=== PATIENT | male | born 1940 | race Caucasian/White ===

== ENCOUNTER 2017-11-19 00:26 | Inpatient (IN) | payer MEDICARE, SELFPAY ==
[2017-11-19] VITALS (26 sets, daily range): BP systolic 99–140; BP diastolic 57–75; PULSE 81–110; RESP 18–27; TEMP 36.4–37.4; O2SAT 91–98; BMI 20.9; BMI 21.0
--- NOTE | 2017-11-19 00:47 | HP.PCM_ITS ---
Problem List (1) History of prostate cancer Status: Chronic (2) COPD (chronic obstructive pulmonary disease) Status: Acute Qualifiers: COPD type: COPD with acute lower respiratory infection Qualified Code(s): J44.0 - Chronic obstructive pulmonary disease with acute lower respiratory infection (3) CAP (community acquired pneumonia) Status: Acute Qualifiers: Laterality: unspecified laterality Qualified Code(s): J18.9 - Pneumonia, unspecified organism History of Present Illness Date of Admission: 11/19/17 Chief Complaint: shortness of breath The patient is a 76 year old male patient with a significant past medical history of COPD presents to the [place] [facility] by squad with acute shortness of breath. Although he has moderate/severe COPD he is not on home oxygen at this time. Initially he complained of left flank pain and was found by EMS to have an SPO2 of 88%, heart rate of 140 and respiratory rate of 36. Chest xray revealed bilateral infiltrates. He was treated with 125mg solumedrol and given Rocephin and Azithromycin and then BIPAP treatment. His condition has improved and now is breathing 20-24 times per minute and heart rate is 100-110 with a normal blood pressure. He is admitted to the ICU. Code status is full and will need to be discussed as the patient also has prostate cancer and I am informed surgery was not done due to his lung disease. He will be managed in the ICU for now. Past Medical History Past Medical History (Chronic Problems): Chronic Problems History of prostate cancer (Chronic) Lives: Spouse/ Significant Other - *Family History Maternal History Items: No pertinent history VTE Information - Inpt Only VTE Present on Admission: No VTE Mechan Device Prophylaxis: None VTE Pharm Prophylaxis ordered?: Yes Patient Problems: Active and Suspected Problems COPD (chronic obstructive pulmonary disease) (Acute) CAP (community acquired pneumonia) (Acute) - Physical Exam General: Alert, Oriented x3, Cooperative HEENT: Atraumatic, Normocephalic Neck: Supple Lungs: No rhonchi, No wheeze, No rales, Diminished, Tachypneic Cardiovascular: Normal S1, Normal S2, No murmurs, Tachycardic Abdomen: Bowel Sounds Present, Soft, Non Tender Extremities: No edema, Capillary Refill Less than 3 Seconds Skin: No rashes, - - thin area in saccrum but skin not completely broken down Musculoskeletal: No Tenderness to Palpation of Joints or Extremities Neurological: Neuro grossly intact Psych/Mental Status: Normal Affect, Appropriate Assessment/Plan All Active Problems COPD (chronic obstructive pulmonary disease) (Acute) CAP (community acquired pneumonia) (Acute) Chronic conditions - COPD - Prostate cancer Plan - admit to ICU - Consult DR Nix - solumedrol 40mg IV q8hrs, rocephine 1gram IV q day and azithromycin 500mg IV q day - continue BIPAP overnight - send sputum culture - CBC, BMP in am - continue routine home medications for stable medical conditions. - LMWH for DVT prophylaxis Code Visit Inpatient E&M: 35501 Init Hosp L3
[2017-11-19] MEDS: Ceftriaxone 1 GM/50 ML BAG IV ×2 (02:08→13:14)
[2017-11-19] MEDS: 0.9% NaCl IVPB Med Flush (250 mL) 15 ML IV (02:13)
[2017-11-19] MEDS: 0.9% NaCl Peripheral Flush Adult/Peds IV (02:13)
[2017-11-19] MEDS: CHLORHEXIDINE GLUC 2% CLOTH 1 EACH TOWELETTE TOPICAL (02:56)
[2017-11-19] MEDS: Ipratropium/Albuterol Sulfate 3 ML AMPUL.NEB INHALATION ×4 (03:02→18:34)
[2017-11-19 04:21] LABS: Hematocrit 30.2 % (40-54); Hemoglobin 9.7 g/dl (13.0-16.5); Mean Corp Hgb Conc 32.1 g/gl (32-36); Mean Corpuscular Hgb 27.8 pg (27.0-32.0); Mean Corpuscular Volume 86.5 fL (80-94); Mean Platelet Vol. 9.6 fl (6.2-12.0); Platelet Count 212 K/mm3 (150-450); RBC Distribution Width CV 14.2 % (11.6-14.6); RBC Distribution Width SD 43.3 fl (35.1-43.9); Red Blood Count 3.49 M/mm3 (4.6-6.2); White Blood Count 13.9 K/mm3 (4.4-11.0)
[2017-11-19 04:28] LABS: M R Staph aureus DNA By PCR Negative (Negative); Probe Check PASS; Specimen Processing Control PASS
[2017-11-19 04:28] LABS: Scan Indicated on CBC? Y/N NO
[2017-11-19 04:29] LABS: Anion Gap 9 (5-15); BUN 15 mg/dL (7-18); Chloride 105 mmol/L (98-107); Creatinine, Serum 1.07 mg/dL (0.70-1.30); EST Glomerular Filtration Rate 72 mL/min (>60); Est Glom Filt Rate - Afr Amer 87 mL/min (>60); Estimated Creatinine Clearance 58.43 ml/min; Glucose 249 mg/dL (74-106); Potassium 3.7 mmol/L (3.5-5.1); Sodium Level 138 mmol/L (136-145)
--- NOTE | 2017-11-19 04:49 | RAD_ITS ---
STUDY: X-RAY CHEST REASON FOR EXAM: Male, 76 years old. Shortness of breath TECHNIQUE: Single AP portable view of the chest. COMPARISON: None. FINDINGS: There is an ill-defined opacity in the left lung apex measures approximately 2 cm may represent a lung mass. There is a moderate size left pleural effusion. There is partial atelectasis in the right lung lower lobe and left lower lobe. Normal size heart. Normal mediastinum and gay. Normal visualized pulmonary arteries. Normal visualized aortic arch and descending thoracic aorta. Normal visualized thoracic spine. Normal visualized ribs, clavicles, and shoulders. There is no demonstrated abnormality of the visualized soft tissue structures of the upper abdomen. RAD/Chest 1 View (Portable) IMPRESSION: Possible left lung upper lobe mass measures 2 cm. Moderate-sized left pleural effusion. Electronically Signed: Ernie Torres MD at 9:01 EDT Tel , Service support ,
[2017-11-19 05:06] LABS: BNP,B-Type NATRIURETIC PEPTIDE 242.7 pg/mL (0-100)
--- NOTE | 2017-11-19 06:54 | PN_ITS ---
Patient Problems: Active and Suspected Problems COPD (chronic obstructive pulmonary disease) (Acute) CAP (community acquired pneumonia) (Acute) Pleural effusion (Acute) Subjective: 76-year-old male with past medical history of prostate cancer, follows up with oncology in the cancer center, hypertension, COPD not on oxygen admitted this morning with acute hypoxic respiratory failure. Patient was seen and examined. No new complaints. Feels much better. Patient initially was on CPAP on transferred to the ICU. Was put on nasal cannula oxygen on arrival to the ICU. Patient improved gradually over the course of the night and is off oxygen. Vitals/I&O's: Vital Signs Temp Pulse Resp BP Pulse Ox 97.5 F L 81 22 H 113/58 L 94 11/19/17 06:00 11/19/17 06:00 11/19/17 06:00 11/19/17 06:00 11/19/17 06:00 Oxygen Flow Rate (L/min) 2 Oxygen Delivery Method Room Air Weight: 68.2 kg Body Mass Index (BMI) 20.9 Intake and Output for Last 24 Hours 11/17/17 11/18/17 11/19/17 23:59 23:59 23:59 Intake Total 688 / 688 Output Total Balance 663 / 663 General: Alert, Oriented x3, Cooperative, No apparent distress, - - Not on oxygen, appears comfortable, not pale, no jaundice HEENT: Atraumatic, PERRLA, EOMI, Normocephalic Oral: Moist Mucosa Neck: Supple Lungs: Normal air movement, Diminished - Both lower lung zones especially in the left lower lobe, Rales - Over the left lower lung zone Cardiovascular: Regular rate, Regular Rhythm, Normal S1, Normal S2, No murmurs, Tachycardic Abdomen: Bowel Sounds Present, Soft, Non Tender, Non-Distended, No Hepato- splenomegaly Extremities: No edema, Capillary Refill Less than 3 Seconds Skin: No rashes, No breakdown Musculoskeletal: No Tenderness to Palpation of Joints or Extremities Neurological: Cranial nerves II-XII grossly intact Psych/Mental Status: Normal Affect, Appropriate Laboratory Results 11/19/17 00:30: MRSA (PCR) Negative 11/19/17 04:00: WBC 13.9 H, RBC 3.49 L, Hgb 9.7 L, Hct 30.2 L, MCV 86.5, MCH 27.8, MCHC 32.1, RDW 14.2, RDW Differential 43.3, Plt Count 212, MPV 9.6 11/19/17 04:00: Sodium 138, Potassium 3.7, Chloride 105, Carbon Dioxide 24.0, Anion Gap 9, BUN 15, Creatinine 1.07, Estim Creat Clear Calc 58.43, Est GFR ( MDRD) Af Amer 87, Est GFR (MDRD) Non-Af 72, BUN/Creatinine Ratio 14.0, Glucose 249 H, Calcium 8.0 L 11/19/17 04:00: B-Natriuretic Peptide 242.7 H Current Medications Acetaminophen (Tylenol) 650 mg PO Q6H PRN PRN PRN Reason: Mild Pain (scale 0-3)/T>100.7 Albuterol/Ipratropium (Duoneb) 3 ml INHALATION Q4H.RT [facility] Last Admin: 11/19/17 03:02 Dose: 3 ml Chlorhexidine Gluconate () 1 each TOPICAL DAILY [facility] Last Admin: 11/19/17 02:56 Dose: 1 each Enoxaparin Sodium (Lovenox) 40 mg SC DAILY@1000 JOSHUA Sodium Chloride () 250 mls @ 15 mls/hr IV .[id number] PRN PRN Reason: SALINE FLUSH Last Admin: 11/19/17 02:13 Dose: 15 mls/hr Sodium Chloride () 1,000 mls @ 100 mls/hr IV .Q10H [facility] Last Admin: 11/19/17 02:08 Dose: Not Given Azithromycin 500 mg/ Dextrose 255 mls @ 250 mls/hr IV Q24 [facility] Stop: 11/21/17 11:02 Last Admin: 11/19/17 02:55 Dose: 250 mls/hr Ceftriaxone Sodium (Rocephin) 1 gm in 50 mls @ 100 mls/hr IV Q24 [facility] Last Admin: 11/19/17 02:08 Dose: 100 mls/hr Magnesium Hydroxide (Milk Of Magnesia) 30 ml PO DAILY PRN PRN PRN Reason: Constipation Nutritional Formula (Lactose Free) (Ensure Enlive) 120 ml PO 4X/DAY [facility] Ondansetron HCl (Zofran) 4 mg IV Q8H PRN PRN PRN Reason: NAUSEA Sodium Chloride () 5 - 30 ml IV UD PRN PRN Reason: SALINE FLUSH Last Admin: 11/19/17 02:13 Dose: 20 ml Medical Necessity - Tobacco Use Smoking Status: Former smoker Tobacco Use: Cigarettes Assessment/Plan All Active Problems COPD (chronic obstructive pulmonary disease) (Acute) CAP (community acquired pneumonia) (Acute) Pleural effusion (Acute) 76-year-old with past medical history of COPD, not on oxygen, prostate cancer, following up with oncology, hypertension comes seen with shortness of breath ongoing for 1 day. 1. Acute hypoxic respiratory failure, resolved, patient was on CPAP on transfer from [facility], not on oxygen this morning Plan: Continue off oxygen, keep SPO2 more than 94%, ambulatory pulse oximetry prior to discharge. 2. Community-acquired pneumonia, bilateral lower lobe, with left pleural effusion, sputum cultures and respiratory panel is pending, on IV ceftriaxone and azithromycin(day 2), will add urine streptococcal and Legionella antigen, continue to monitor vitals closely. 3. Left pleural effusion, unclear etiology, splitter machine planning on pleural tap, will follow-up on results, records from [facility] pending 4. Sinus tachycardia likely secondary to beta-abhi withdrawal, patient is on beta-abhi and amlodipine at home, will resume 5. Hypertension, controlled, will resume home medications 6. COPD, not on home oxygen, on Spiriva and breathing treatments, will continue same 7. Prostate cancer following with oncology in the metastatic cancer center 8. Deficiency anemia, on p.o. iron 9. DVT prophylaxis - Lovenox SC Code Visit Procedures: Other Procedure - See Report - non-billable round - patient admitted after midnight
--- NOTE | 2017-11-19 06:58 | CON.PCM_ITS ---
Problem List (1) Pleural effusion Status: Acute (2) History of prostate cancer Status: Chronic (3) COPD (chronic obstructive pulmonary disease) Status: Acute Qualifiers: COPD type: COPD with acute lower respiratory infection Qualified Code(s): J44.0 - Chronic obstructive pulmonary disease with acute lower respiratory infection (4) CAP (community acquired pneumonia) Status: Acute Qualifiers: Laterality: unspecified laterality Qualified Code(s): J18.9 - Pneumonia, unspecified organism Reason for Consult Date of Consultation: 11/19/17 Reason for Consultation: Acute hypoxic respiratory insufficiency History of Present Illness: The patient is a 76 year old M, with past medical history listed below, who originally presented to [place] [facility] secondary to acute shortness of breath. Patient reportedly was noted to have left flank pain and was found by EMS with a saturation of 88%, heart rate of 140 bpm and respiratory rate of 36. On presentation to the emergency room, patient was noted to have bilateral infiltrates on outside imaging. Patient was given Solu-Medrol, Rocephin and azithromycin. Patient was initiated on BiPAP therapy and then transported to [facility] intensive care for further monitoring. Overnight, patient has been taken off of BiPAP therapy and feels back to his baseline from a breathing standpoint. Patient still can have significant dyspnea with minimal exertion, but states that at rest he feels relatively comfortable. Patient denies any productive cough at this time. Patient is unaware of any fevers. Patient reports that he has been admitted to [facility] was similar type of presentation. Patient has noted some increased shortness of breath and lower extremity edema over the last 3-4 days. Patient does not state that he called his PCP. Patient has been placed on aerosol therapy secondary to reported COPD. Patient states that he has never had pulmonary function tests and is not aware of the severity of his disease. Patient does report a 20+ pack year smoking history, but quit some time ago. Patient does report a recent denial of surgery for his prostate cancer secondary to his lung disease. Patient does report intermittent lower extremity swelling at baseline, but does not believe this is significantly worse compared to previous. Patient does report some urinary hesitancy, but does not report any dysuria. Review of systems otherwise negative ?10 systems. Past Medical History Past Medical History (Chronic Problems): Chronic Problems History of prostate cancer (Chronic) Allergies JOSESITO Inhibitors Adverse Reaction (Verified 11/19/17 06:18) Unknown fluticasone [From Advair Diskus] Adverse Reaction (Verified 11/19/17 06:18) Unknown lisinopril Adverse Reaction (Verified 11/19/17 06:18) Unknown salmeterol [From Advair Diskus] Adverse Reaction (Verified 11/19/17 06:18) Unknown Home Medications: Ambulatory Orders Medication Instructions Recorded Albuterol Aerosols [Ventolin 2.5 mg INHALATION Q6H PRN PRN 11/19/17 Aerosols] Amlodipine [Norvasc] 10 mg PO DAILY 18 Aspirin E.C. [Ecotrin] 81 mg PO DAILY@0800 18 Ferrous Sulfate 325 mg PO DAILY@0800 18 Metoprolol Tartrate [Lopressor 50 mg PO BID 11/19/17 (Beta Ilene)] Nebulizer Accessories 11/19/17 Nebulizer and Compressor 11/19/17 Omeprazole [Prilosec] 40 mg PO BREAKFAST 18 Terazosin HCl [Hytrin] 2 mg PO QHS 11/19/17 Tiotropium [place] [Spiriva 18 MCG] 1 puff INHALATION DAILY 11/19/17 Lives: Spouse/ Significant Other Smoking Status: Former smoker Tobacco Use: Cigarettes - *Family History Maternal History Items: No pertinent history Review of Systems Comment: See HPI Patient Problems: Active and Suspected Problems COPD (chronic obstructive pulmonary disease) (Acute) CAP (community acquired pneumonia) (Acute) Pleural effusion (Acute) Objective: Portable chest x-ray was personally reviewed. This does show a possible left upper lobe nodule and left pleural effusion. Mild atelectasis versus infiltrate noted at the right base. - Physical Exam General: Alert, Oriented x3, Cooperative, No apparent distress, - - Speaking in full sentences. Appears stated age. HEENT: Atraumatic, PERRLA, EOMI, Normocephalic, TM's Clear, - - No scleral icterus or injection noted. Oral: Moist Mucosa, No Gingival or Mucosal Lesions/ Ulcerations Neck: Supple, No JVD, No Nodes, Trachea Midline Lungs: No rhonchi, No rales, Diminished, Wheezes, - - Dullness to percussion at the left base Cardiovascular: Regular rate, Regular Rhythm, Normal S1, Normal S2, No murmurs, No rub noted, No Gallop Abdomen: Bowel Sounds Present, Soft, Non Tender, Non-Distended Extremities: No clubbing, No cyanosis, No edema, Capillary Refill Less than 3 Seconds Skin: No rashes, No breakdown, - - Thin skin of the coccyx noted. Musculoskeletal: No Tenderness to Palpation of Joints or Extremities Lymphatic: No Cervical, Supraclavicular, or Inguinal Adenopathy Neurological: Cranial nerves II-XII grossly intact, Neuro grossly intact, Motor Exam 5/5 strength throughout Psych/Mental Status: Alert and oriented to time, place, person, mood and affect Vital Signs Temp Pulse Resp BP Pulse Ox 36.4 C L 81 22 H 113/58 L 94 11/19/17 06:00 11/19/17 06:00 11/19/17 06:00 11/19/17 06:00 11/19/17 06:00 Oxygen Flow Rate (L/min) 2 Oxygen Delivery Method Room Air Weight: 68.2 kg Body Mass Index (BMI) 20.9 Intake and Output for Last 24 Hours 11/17/17 11/18/17 11/19/17 23:59 23:59 23:59 Intake Total 688 / 688 Output Total 25 / 25 Balance 663 / 663 Laboratory Tests Past 24 Hrs 11/19/17 11/19/17 11/19/17 00:30 04:00 04:00 WBC 13.9 H RBC 3.49 L Hgb 9.7 L Hct 30.2 L MCV 86.5 MCH 27.8 MCHC 32.1 RDW 14.2 RDW Differential 43.3 Plt Count 212 MPV 9.6 Sodium 138 Potassium 3.7 Chloride 105 Carbon Dioxide 24.0 Anion Gap 9 BUN 15 Creatinine 1.07 Estim Creat Clear Calc 58.43 Est GFR (MDRD) Af Amer 87 Est GFR (MDRD) Non-Af 72 BUN/Creatinine Ratio 14.0 Glucose 249 H Calcium 8.0 L B-Natriuretic Peptide MRSA (PCR) Negative 11/19/17 04:00 WBC RBC Hgb Hct MCV MCH MCHC RDW RDW Differential Plt Count MPV Sodium Potassium Chloride Carbon Dioxide Anion Gap BUN Creatinine Estim Creat Clear Calc Est GFR (MDRD) Af Amer Est GFR (MDRD) Non-Af BUN/Creatinine Ratio Glucose Calcium B-Natriuretic Peptide 242.7 H MRSA (PCR) Assessment/Plan Active and Suspected Problems COPD (chronic obstructive pulmonary disease) (Acute) CAP (community acquired pneumonia) (Acute) Pleural effusion (Acute) RECOMMENDATIONS: 1. Continue antibiotics and steroids for now 2. Arrange for thoracentesis 3. Increase activity as tolerated 4. CT scan after thoracentesis 5. Okay to leave the intensive care unit IMPRESSIONS: 1. Acute hypoxic respiratory insufficiency secondary to pleural effusion/ COPD Currently being treated as a COPD exacerbation, but does have a pleural effusion noted on chest x-ray. Clinical concern given patient's history of prostate cancer that this may be related to metastasis. Reasonable to continue with antibiotics and steroids for now, but would recommend obtaining a thoracentesis with laboratory workup for clarification of transudate versus exudate. Patient does have a possible left upper lobe nodule noted on chest x- ray. This may be malignant versus infectious. Would not recommend a CT scan until thoracentesis have been completed. Increase activity as tolerated. 2. Reported COPD Unknown severity at this time. Patient is on bronchodilator therapy at home per his report. Patient is not reporting any significant productive cough or change in sputum to indicate a COPD exacerbation. Likely reasonable to continue with bronchodilators. Possibly discontinue steroid therapy after 24- 48 hours. 3. Possible congestive heart failure Patient does report occasional lower extremity swelling. Patient does have a left pleural effusion. If thoracentesis is consistent with a transudate of process, evaluation with echocardiogram would be reasonable. Patient has received care at [facility] previously. Would likely benefit from obtaining old records for comparison. BNP is slightly elevated. 4. Prostate cancer/advanced age/iron deficiency/hypertension Complicates care, management, recovery and prognosis. Likely okay to continue with iron supplementation. Monitor for urinary retention.
[2017-11-19] MEDS: 0.9% Normal Saline 1,000 ML 100 ML IV ×2 (07:53→17:57)
--- NOTE | 2017-11-19 09:51 | CASEMGMT ---
See RN CM Assessment Link. DC PLAN: pt was independent. Family is supportive. No needs identified @ this time. Olga Lidia NEUMANNN RN ACM
[2017-11-19] MEDS: amLODIPine 10 MG Tablet PO (11:14)
[2017-11-19] MEDS: Ferrous Sulfate 325 MG Tablet PO (11:15)
[2017-11-19] MEDS: Metoprolol Tartrate 50 MG Tablet PO ×2 (11:15→21:12)
[2017-11-19] MEDS: Pantoprazole Sodium 40 MG Tablet PO (11:15)
[2017-11-19] MEDS: Aspirin E.C. 81 MG Tablet PO (11:15)
[2017-11-19] MEDS: Enoxaparin 40 MG/0.4 ML Syringe SC (11:19)
[2017-11-19] MEDS: Doxazosin 1 MG Tablet 2 MG PO (21:12)
[2017-11-19] MEDS: Sodium Chloride 0.65% 1 SPRAY SPRAY.BTL NASAL (22:14)
[2017-11-20] VITALS (15 sets, daily range): BP systolic 116–124; BP diastolic 64–68; PULSE 86–103; RESP 18–20; TEMP 37.1–37.2; O2SAT 85–96
[2017-11-20] MEDS: 0.9% Normal Saline 1,000 ML 100 ML IV (04:06)
[2017-11-20] MEDS: 0.9% NaCl Peripheral Flush Adult/Peds IV (04:06)
[2017-11-20 04:31] LABS: ALB/GLOB Ratio 0.5 RATIO (0.9-2.4); AST(SGOT) 9 U/L (15-37); Alanine Aminotransfer ALT/SGPT 14 U/L (16-61); Albumin, Serum 2.4 g/dL (3.2-5.0); Alkaline Phosphatase 61 U/L (45-117); Anion Gap 9 (5-15); BUN 16 mg/dL (7-18); BUN/Creat Ratio 16.8 RATIO (10-20); Calcium,Total 8.5 mg/dL (8.5-10.1); Chloride 108 mmol/L (98-107); Creatinine, Serum 0.95 mg/dL (0.70-1.30); EST Glomerular Filtration Rate 82 mL/min (>60); Est Glom Filt Rate - Afr Amer 99 mL/min (>60); Estimated Creatinine Clearance 65.81 ml/min; Globulin 4.5 g/dL (2.2-4.2); Glucose 97 mg/dL (74-106); Protein, Total 6.9 g/dL (6.4-8.2); Sodium Level 141 mmol/L (136-145)
[2017-11-20 04:36] LABS: Absolute Lymphocyte Count 0.68 X10^3/ul (0.83-4.51); Absolute Neutrophil Count 13.3 X10^3/uL (2.0-7.7); Basophil# 0.01 X10^3/uL; Basophil% 0.1 % (0-1); Hematocrit 31.7 % (40-54); Hemoglobin 10.1 g/dl (13.0-16.5); Lymphocyte # 0.68 X10^3/ul (4.0); Lymphocyte % 4.4 % (19-41); Mean Corp Hgb Conc 31.9 g/gl (32-36); Mean Corpuscular Hgb 27.4 pg (27.0-32.0); Mean Corpuscular Volume 85.9 fL (80-94); Mean Platelet Vol. 10.1 fl (6.2-12.0); Monocyte# 1.32 X10^3/uL; Monocyte% 8.6 % (0-10); Neutrophil # 13.32 X10^3/uL (2.7-7.7); Neutrophil % 86.6 % (47-70); Platelet Count 222 K/mm3 (150-450); RBC Distribution Width CV 14.3 % (11.6-14.6); RBC Distribution Width SD 43.8 fl (35.1-43.9); Red Blood Count 3.69 M/mm3 (4.6-6.2); White Blood Count 15.4 K/mm3 (4.4-11.0)
[2017-11-20 04:49] LABS: POSITIVE COUNT NO; POSITIVE DIFFERENTIAL NO; POSITIVE MORPHOLOGY NO
[2017-11-20] MEDS: CHLORHEXIDINE GLUC 2% CLOTH 1 EACH TOWELETTE TOPICAL (05:51)
[2017-11-20] MEDS: Ipratropium/Albuterol Sulfate 3 ML AMPUL.NEB INHALATION ×2 (06:39→13:13)
--- NOTE | 2017-11-20 07:16 | PCM.PN.HOSP ---
Patient Problems: Active and Suspected Problems COPD (chronic obstructive pulmonary disease) (Acute) CAP (community acquired pneumonia) (Acute) Pleural effusion (Acute) Subjective: Patient was seen and examined. Remains in ICU. No new complaints. Wants to go home. On 3 L of oxygen. Respiratory panel came back positive for rhinovirus and he is in droplet precautions. Denies any fever or chills. States he is coughing up a lot of stuff. Vitals/I&O's: Vital Signs Temp Pulse Resp BP Pulse Ox 98.9 F 100 19 H 124/65 H 94 11/20/17 02:41 11/20/17 04:00 11/20/17 02:41 11/20/17 02:41 11/20/17 02:41 Oxygen Flow Rate (L/min) 3 Oxygen Delivery Method Nasal Cannula Weight: 74.3 kg Body Mass Index (BMI) 20.9 Intake and Output for Last 24 Hours 11/18/17 11/19/17 11/20/17 23:59 23:59 23:59 Intake Total 3270 / 3270 657 / 657 Output Total 620 / 620 350 / 350 Balance 2650 / 2650 307 / 307 General: Alert, Oriented x3, Cooperative, No apparent distress HEENT: Atraumatic, PERRLA, EOMI, Normocephalic Oral: Moist Mucosa Neck: Supple Lungs: Normal air movement, Diminished - At the bilateral lung bases and more in the left lower lobe Cardiovascular: Regular rate, Regular Rhythm, Normal S1, Normal S2, No murmurs Abdomen: Bowel Sounds Present, Soft, Non Tender, Non-Distended, No Hepato-splenomegaly Extremities: No edema Skin: No rashes Musculoskeletal: No Tenderness to Palpation of Joints or Extremities Lymphatic: No Cervical, Supraclavicular, or Inguinal Adenopathy Neurological: Cranial nerves II-XII grossly intact, Neuro grossly intact Psych/Mental Status: Normal Affect, Appropriate Microbiology Past 72 Hours 11/19/17 00:30 Sputum, Expectorated/Coughed Gram Stain - Final 11/19/17 11:35 Urine, Random Streptococcus pneumoniae Antigen (M - Final 11/19/17 08:26 Urine, Random Legionella Antigen - Final 11/19/17 06:55 Mucosa - Nose Respiratory Panel (PCR) - Final Rhinovirus Laboratory Results 11/20/17 04:00: Hemoglobin A1c Pending 11/20/17 04:00: WBC 15.4 H, RBC 3.69 L, Hgb 10.1 L, Hct 31.7 L, MCV 85.9, MCH 27.4, MCHC 31.9 L, RDW 14.3, RDW Differential 43.8, Plt Count 222, MPV 10.1, Immature Gran % (Auto) 0.300, Neut % (Auto) 86.6 H, Lymph % (Auto) 4.4 L, [place] % (Auto) 8.6, Eos % (Auto) 0.0, Baso % (Auto) 0.1, Absolute Neuts (auto) 13.3 H, Absolute Lymphs (auto) 0.68 L, Total Counted Not Reportable 11/20/17 04:00: Sodium 141, Potassium 4.0, Chloride 108 H, Carbon Dioxide 24.0, Anion Gap 9, BUN 16, Creatinine 0.95, Estim Creat Clear Calc 65.81, Est GFR (MDRD) Af Amer 99, Est GFR (MDRD) Non-Af 82, BUN/Creatinine Ratio 16.8, Glucose 97, Calcium 8.5, Total Bilirubin 0.40, AST 9 L, ALT 14 L, Alkaline Phosphatase 61, Total Protein 6.9, Albumin 2.4 L, Globulin 4.5 H, Albumin/Globulin Ratio 0.5 L Current Medications Acetaminophen (Tylenol) 650 mg PO Q6H PRN PRN PRN Reason: Mild Pain (scale 0-3)/T>100.7 Albuterol Sulfate (Ventolin Aerosols) 2.5 mg INHALATION Q2H PRN PRN PRN Reason: SOB &/OR WHEEZING Albuterol/Ipratropium (Duoneb) 3 ml INHALATION Q6H.RT COUNTS INCLUDE 234 BEDS AT THE [facility] Last Admin: 11/20/17 06:39 Dose: 3 ml Amlodipine Besylate (Norvasc) 10 mg PO DAILY COUNTS INCLUDE 234 BEDS AT THE [facility] Last Admin: 11/19/17 11:14 Dose: 10 mg Aspirin (Ecotrin) 81 mg PO DAILY@0800 COUNTS INCLUDE 234 BEDS AT THE [facility] Last Admin: 11/19/17 11:15 Dose: 81 mg Chlorhexidine Gluconate () 1 each TOPICAL DAILY COUNTS INCLUDE 234 BEDS AT THE [facility] Last Admin: 11/20/17 05:51 Dose: 1 each Doxazosin Mesylate (Cardura) 2 mg PO QHS COUNTS INCLUDE 234 BEDS AT THE [facility] Last Admin: 11/19/17 21:12 Dose: 2 mg Enoxaparin Sodium (Lovenox) 40 mg SC DAILY@1000 COUNTS INCLUDE 234 BEDS AT THE [facility] Last Admin: 11/19/17 11:19 Dose: 40 mg Ferrous Sulfate (Ferrous Sulfate) 325 mg PO DAILY@0800 COUNTS INCLUDE 234 BEDS AT THE [facility] Last Admin: 11/19/17 11:15 Dose: 325 mg Sodium Chloride () 250 mls @ 15 mls/hr IV .[id number] PRN PRN Reason: SALINE FLUSH Last Admin: 11/19/17 02:13 Dose: 15 mls/hr Sodium Chloride () 1,000 mls @ 100 mls/hr IV .Q10H COUNTS INCLUDE 234 BEDS AT THE [facility] Last Admin: 11/20/17 04:06 Dose: 100 mls/hr Azithromycin 500 mg/ Dextrose 255 mls @ 250 mls/hr IV Q24 COUNTS INCLUDE 234 BEDS AT THE [facility] Stop: 11/21/17 11:02 Last Admin: 11/19/17 02:55 Dose: 250 mls/hr Ceftriaxone Sodium (Rocephin) 1 gm in 50 mls @ 100 mls/hr IV Q24 COUNTS INCLUDE 234 BEDS AT THE [facility] Last Admin: 11/19/17 13:14 Dose: 100 mls/hr Magnesium Hydroxide (Milk Of Magnesia) 30 ml PO DAILY PRN PRN PRN Reason: Constipation Metoprolol Tartrate (Lopressor (Beta Ilene)) 50 mg PO BID COUNTS INCLUDE 234 BEDS AT THE [facility] Last Admin: 11/19/17 21:12 Dose: 50 mg Nutritional Formula (Lactose Free) (Ensure Enlive) 120 ml PO 4X/DAY COUNTS INCLUDE 234 BEDS AT THE [facility] Last Admin: 11/19/17 21:27 Dose: Not Given Ondansetron HCl (Zofran) 4 mg IV Q8H PRN PRN PRN Reason: NAUSEA Pantoprazole Sodium (Protonix) 40 mg PO BREAKFAST COUNTS INCLUDE 234 BEDS AT THE [facility] Last Admin: 11/19/17 11:15 Dose: 40 mg Sodium Chloride () 5 - 30 ml IV UD PRN PRN Reason: SALINE FLUSH Last Admin: 11/20/17 04:06 Dose: 10 ml Sodium Chloride ([place] Nasal [place]) 1 spray NASAL TID PRN PRN PRN Reason: NASAL DRYNESS Last Admin: 11/19/17 22:14 Dose: 1 spray Medical Necessity - Tobacco Use Smoking Status: Former smoker Tobacco Use: Cigarettes Assessment/Plan All Active Problems COPD (chronic obstructive pulmonary disease) (Acute) CAP (community acquired pneumonia) (Acute) Pleural effusion (Acute) 76-year-old with past medical history of COPD, not on oxygen, history of prostate cancer, following up with oncology, hypertension comes with shortness of breath ongoing for 1 day. 1. Acute hypoxic respiratory failure likely secondary to COPD exacerbation/pleural effusion. Official chest x-ray report does not comment on pneumonia even though the original chest x-ray for the [facility] said bilateral pneumonia. Patient seems to have come back to 3-4 L of oxygen despite being off it at the time of being examined yesterday. Discussed with the rice drier, patient will be assessed for ambulatory home oxygen, and he will need to follow-up in the outpatient with his rice drier in [facility] for thoracocentesis and workup the pleural mass 2. Acute COPD exacerbation, mild, secondary to acute rhinovirus bronchitis, patient has been transitioned to oral steroids, on breathing treatment as needed. 3. Left pleural effusion, moderate-sized, community-acquired pneumonia ruled out with official chest x-ray report, he has been off antibiotics. A thoracocentesis will be planned for the outpatient 4. Left upper lobe mass, likely to be malignant, will need to be followed up with rice drier and oncology the outpatient 5. Sinus tachycardia likely secondary to beta-ilene withdrawal, resolved with resumption of home medications 6. Hypertension, controlled, continue on home medications 7. Prostate cancer following with oncology in the metastatic cancer center 8. Iron deficiency anemia, on p.o. iron 9. DVT prophylaxis - Lovenox SC Code Visit Inpatient E&M: 54109 Subs Hosp L2
--- NOTE | 2017-11-20 07:46 | PN_ITS ---
Subjective: Patient did well overnight. Patient without any hemodynamic instability. Patient continues to report a cough and some shortness of breath on exertion. Patient has required supplemental oxygen to maintain appropriate saturations and reiterated that he does not use supplemental oxygen at baseline. Patient has come back positive for rhinovirus and is in droplet isolation. General: Alert, Oriented x3, Cooperative, No apparent distress, - - Appears stated age. Speaking in full sentences. HEENT: Atraumatic, PERRLA, EOMI, Normocephalic, - - No scleral icterus or injection noted. Oral: Moist Mucosa, No Gingival or Mucosal Lesions/ Ulcerations Neck: Supple, No JVD, No Nodes, Trachea Midline Lungs: No rhonchi, No rales, Diminished, Wheezes - At end exhalation, - - Symmetric expansion. No dullness to percussion. Cardiovascular: Regular rate, Regular Rhythm, Normal S1, Normal S2, No murmurs, No rub noted, No Gallop Abdomen: Bowel Sounds Present, Soft, Non Tender, Non-Distended Extremities: No clubbing, No cyanosis, No edema, Capillary Refill Less than 3 Seconds Skin: No rashes, No breakdown Musculoskeletal: No Tenderness to Palpation of Joints or Extremities, No Muscle Wasting Lymphatic: No Cervical, Supraclavicular, or Inguinal Adenopathy Neurological: Cranial nerves II-XII grossly intact, Neuro grossly intact, Motor Exam 5/5 strength throughout Psych/Mental Status: Alert and oriented to time, place, person, mood and affect Vital Signs Temp Pulse Resp BP Pulse Ox 37.2 C 97 19 H 124/65 H 94 11/20/17 02:41 11/20/17 06:38 11/20/17 02:41 11/20/17 02:41 11/20/17 02:41 Oxygen Flow Rate (L/min) 3 Oxygen Delivery Method Nasal Cannula Weight: 74.3 kg Body Mass Index (BMI) 20.9 Intake and Output for Last 24 Hours 11/18/17 11/19/17 11/20/17 23:59 23:59 23:59 Intake Total 3270 / 3270 657 / 657 Output Total 620 / 620 350 / 350 Balance 2650 / 2650 307 / 307 Labs (Last 48 Hours) 11/19/17 11/19/17 11/19/17 00:30 04:00 04:00 WBC 13.9 H RBC 3.49 L Hgb 9.7 L Hct 30.2 L MCV 86.5 MCH 27.8 MCHC 32.1 RDW 14.2 RDW Differential 43.3 Plt Count 212 MPV 9.6 Immature Gran % (Auto) Neut % (Auto) Lymph % (Auto) [place] % (Auto) Eos % (Auto) Baso % (Auto) Absolute Neuts (auto) Absolute Lymphs (auto) Total Counted Sodium 138 Potassium 3.7 Chloride 105 Carbon Dioxide 24.0 Anion Gap 9 BUN 15 Creatinine 1.07 Estim Creat Clear Calc 58.43 Est GFR (MDRD) Af Amer 87 Est GFR (MDRD) Non-Af 72 BUN/Creatinine Ratio 14.0 Glucose 249 H Hemoglobin A1c Calcium 8.0 L Total Bilirubin AST ALT Alkaline Phosphatase B-Natriuretic Peptide Total Protein Albumin Globulin Albumin/Globulin Ratio MRSA (PCR) Negative 11/19/17 11/20/17 11/20/17 04:00 04:00 04:00 WBC 15.4 H RBC 3.69 L Hgb 10.1 L Hct 31.7 L MCV 85.9 MCH 27.4 MCHC 31.9 L RDW 14.3 RDW Differential 43.8 Plt Count 222 MPV 10.1 Immature Gran % (Auto) 0.300 Neut % (Auto) 86.6 H Lymph % (Auto) 4.4 L [place] % (Auto) 8.6 Eos % (Auto) 0.0 Baso % (Auto) 0.1 Absolute Neuts (auto) 13.3 H Absolute Lymphs (auto) 0.68 L Total Counted Not Reportable Sodium Potassium Chloride Carbon Dioxide Anion Gap BUN Creatinine Estim Creat Clear Calc Est GFR (MDRD) Af Amer Est GFR (MDRD) Non-Af BUN/Creatinine Ratio Glucose Hemoglobin A1c Pending Calcium Total Bilirubin AST ALT Alkaline Phosphatase B-Natriuretic Peptide 242.7 H Total Protein Albumin Globulin Albumin/Globulin Ratio MRSA (PCR) 11/20/17 04:00 WBC RBC Hgb Hct MCV MCH MCHC RDW RDW Differential Plt Count MPV Immature Gran % (Auto) Neut % (Auto) Lymph % (Auto) [place] % (Auto) Eos % (Auto) Baso % (Auto) Absolute Neuts (auto) Absolute Lymphs (auto) Total Counted Sodium 141 Potassium 4.0 Chloride 108 H Carbon Dioxide 24.0 Anion Gap 9 BUN 16 Creatinine 0.95 Estim Creat Clear Calc 65.81 Est GFR (MDRD) Af Amer 99 Est GFR (MDRD) Non-Af 82 BUN/Creatinine Ratio 16.8 Glucose 97 Hemoglobin A1c Calcium 8.5 Total Bilirubin 0.40 AST 9 L ALT 14 L Alkaline Phosphatase 61 B-Natriuretic Peptide Total Protein 6.9 Albumin 2.4 L Globulin 4.5 H Albumin/Globulin Ratio 0.5 L MRSA (PCR) Microbiology 11/19/17 00:30 Sputum, Expectorated/Coughed Gram Stain - Final 11/19/17 11:35 Urine, Random Streptococcus pneumoniae Antigen (M - Final 11/19/17 08:26 Urine, Random Legionella Antigen - Final 11/19/17 06:55 Mucosa - Nose Respiratory Panel (PCR) - Final Rhinovirus Clinical Impression(s) from Imaging Studies Chest X-Ray 11/19/17 04:49 IMPRESSION: Possible left lung upper lobe mass measures 2 cm. Moderate-sized left pleural effusion. Electronically Signed: Ernie Torres MD at 9:01 EDT Tel , Service support , Medical Necessity - Tobacco Use Smoking Status: Former smoker Tobacco Use: Cigarettes Assessment/Plan All Active Problems COPD (chronic obstructive pulmonary disease) (Acute) CAP (community acquired pneumonia) (Acute) Pleural effusion (Acute) RECOMMENDATIONS: 1. Okay to discontinue antibiotics 2. Walking oximetry prior to discharge 3. Okay to transition to prednisone therapy and wean over the next 12-[address] scan after thoracentesis 5. Okay to leave the intensive care unit versus possible discharge with close pulmonary follow-up IMPRESSIONS: 1. Acute hypoxic respiratory insufficiency secondary to pleural effusion/ COPD exacerbation secondary to rhinovirus Patient does appear to have a COPD exacerbation secondary to rhinovirus. Patient will be placed on prednisone therapy and this can be weaned over the next 12-14 days. Given positive rhinovirus, antibiotics are likely not indicated and can be discontinued. Patient does have a pleural effusion with concern for possible metastasis. This can be worked up as an outpatient if patient wishes. Will obtain a walking oximetry as patient will likely require supplemental oxygen if discharged. Patient would need to follow-up with Dr. Ramirez in 1-2 weeks for evaluation. 2. Reported COPD Unknown severity at this time. Patient is on bronchodilator therapy at home per his report. Patient is now reporting a change in cough and sputum. Will initiate patient on prednisone therapy and wean over the next 12-14 days. 3. Possible congestive heart failure Patient does report occasional lower extremity swelling. Patient does have a left pleural effusion. If thoracentesis is consistent with a transudate of process, evaluation with echocardiogram would be reasonable. Patient has received care at [facility] previously. Would likely benefit from obtaining old records for comparison. BNP is slightly elevated. 4. Prostate cancer/advanced age/iron deficiency/hypertension Complicates care, management, recovery and prognosis. Likely okay to continue with iron supplementation. Monitor for urinary retention. Code Visit [facility] E[facility]M: 06325 [facility]
[2017-11-20 08:23] LABS: Hemoglobin A1c 6.2 % (4.2-6.3)
[2017-11-20] MEDS: Ferrous Sulfate 325 MG Tablet PO (08:44)
[2017-11-20] MEDS: Aspirin E.C. 81 MG Tablet PO (08:44)
[2017-11-20] MEDS: Pantoprazole Sodium 40 MG Tablet PO (08:45)
[2017-11-20] MEDS: predniSONE 20 MG Tablet 40 MG PO (08:45)
--- NOTE | 2017-11-20 10:00 | PCM.DC ---
- Discharge Diagnoses Current Active Problems: Current Active and Chronic Problems History of prostate cancer (Chronic) COPD (chronic obstructive pulmonary disease) (Acute) CAP (community acquired pneumonia) (Acute) Pleural effusion (Acute) Reason(s) for Visit for Discharge Instructions: Shortness of breath You will use the following diet at home:: Cardiac Your food should be the consistency of: Regular Your liquids should be the consistency of: Regular/Thin Discharge Activity: Return to Normal Activity Additional Instructions: You are being discharged on oxygen. Please be careful not to go around open flames. You should use your oxygen all the time. Continue to use your incentive spirometer every 1 hour whilst awake. You should also follow-up with your satellite specialist in 1 week to re-evaluate for the continuous use of oxygen and possibly do a chest fluid tap and work you up for the lung mass seen during this admission. Allergies/Adverse Reactions: Allergies fluticasone [From Advair Diskus] Allergy (Verified 11/19/17 06:59) Angioedema JOSESITO Inhibitors Adverse Reaction (Verified 11/19/17 06:59) Angioedema lisinopril Adverse Reaction (Verified 11/19/17 06:59) Angioedema salmeterol [From Advair Diskus] Adverse Reaction (Verified 11/19/17 06:59) Angioedema Medications to take at Discharge Albuterol Aerosols [Ventolin Aerosols] 2.5 mg INHALATION Q6H PRN PRN 11/19/17 Amlodipine [Norvasc] 10 mg PO DAILY 11/19/17 Aspirin E.C. [Ecotrin] 81 mg PO DAILY@0800 11/19/17 Ferrous Sulfate 325 mg PO DAILY@0800 11/19/17 Metoprolol Tartrate [Lopressor (beta abhi)] 50 mg PO BID 11/19/17 Nebulizer Accessories 11/19/17 Nebulizer and Compressor 11/19/17 Omeprazole [Prilosec] 40 mg PO BREAKFAST 11/19/17 Terazosin HCl [Hytrin] 2 mg PO QHS 11/19/17 Tiotropium [place] [Spiriva 18 MCG] 1 puff INHALATION DAILY 11/19/17 Prednisone [Deltasone] 40 mg PO DAILY #4 tab 11/20/17 The following prescriptions were given: Prednisone [Deltasone] 40 mg PO DAILY #4 tab Primary Care Physician: Yeny Bautista NP-C [Primary Care Provider] - Please follow up with your Primary Care Physician in: within 2 weeks When: Follow-up with your satellite specialist in 1 week Proposed Discharge Date: 11/20/17
--- NOTE | 2017-11-20 10:06 | DCINST_ITS ---
- Discharge Diagnoses Current Active Problems: Current Active and Chronic Problems History of prostate cancer (Chronic) COPD (chronic obstructive pulmonary disease) (Acute) CAP (community acquired pneumonia) (Acute) Pleural effusion (Acute) Reason(s) for Visit for Discharge Instructions: Shortness of breath You will use the following diet at home:: Cardiac Your food should be the consistency of: Regular Your liquids should be the consistency of: Regular/Thin Discharge Activity: Return to Normal Activity Additional Instructions: You are being discharged on oxygen. Please be careful not to go around open flames. You should use your oxygen all the time. Continue to use your incentive spirometer every 1 hour whilst awake. You should also follow-up with your equity trader in 1 week to re-evaluate for the continuous use of oxygen and possibly do a chest fluid tap and work you up for the lung mass seen during this admission. Allergies/Adverse Reactions: Allergies fluticasone [From Advair Diskus] Allergy (Verified 11/19/17 06:59) Angioedema JOSESITO Inhibitors Adverse Reaction (Verified 11/19/17 06:59) Angioedema lisinopril Adverse Reaction (Verified 11/19/17 06:59) Angioedema salmeterol [From Advair Diskus] Adverse Reaction (Verified 11/19/17 06:59) Angioedema Medications to take at Discharge Albuterol Aerosols [Ventolin Aerosols] 2.5 mg INHALATION Q6H PRN PRN 11/19/17 Amlodipine [Norvasc] 10 mg PO DAILY 11/19/17 Aspirin E.C. [Ecotrin] 81 mg PO DAILY@0800 11/19/17 Ferrous Sulfate 325 mg PO DAILY@0800 11/19/17 Metoprolol Tartrate [Lopressor (beta abhi)] 50 mg PO BID 11/19/17 Nebulizer Accessories 11/19/17 Nebulizer and Compressor 11/19/17 Omeprazole [Prilosec] 40 mg PO BREAKFAST 11/19/17 Terazosin HCl [Hytrin] 2 mg PO QHS 11/19/17 Tiotropium [place] [Spiriva 18 MCG] 1 puff INHALATION DAILY 11/19/17 Prednisone [Deltasone] 40 mg PO DAILY #4 tab 11/20/17 The following prescriptions were given: Prednisone [Deltasone] 40 mg PO DAILY #4 tab Primary Care Physician: Yeny Bautista NP-C [Primary Care Provider] - Please follow up with your Primary Care Physician in: within 2 weeks When: Follow-up with your equity trader in 1 week Proposed Discharge Date: 11/20/17
--- NOTE | 2017-11-20 10:06 | PCM.DC.SUM ---
Discharge Date and Diagnosis - Problem List Patient Problems: Active and Suspected Problems COPD (chronic obstructive pulmonary disease) (Acute) CAP (community acquired pneumonia) (Acute) Pleural effusion (Acute) Date of Admission: 11/19/17 Date of Discharge: 11/20/17 - Primary Discharge Diagnosis Active and Suspected Problems COPD (chronic obstructive pulmonary disease) (Acute) Pleural effusion, left(Acute) - Secondary Discharge Diagnosis Chronic Problems History of prostate cancer (Chronic) COPD Hospital Course and Treatment Imaging Results: Clinical Impression(s) from Imaging Studies Chest X-Ray 11/19/17 04:49 IMPRESSION: Possible left lung upper lobe mass measures 2 cm. Moderate-sized left pleural effusion. Electronically Signed: Ernie Torres MD at 9:01 EDT Tel , Service support , Curing Oven Tender Operations: None Procedures: None Summary of Care Provided: 76-year-old with past medical history of COPD, not on oxygen, history of prostate cancer, following up with oncology, hypertension comes with shortness of breath ongoing for 1 day. He was transferred from [place] ED. He had complained of left flank pain and was found by EMS to pulse oximetry of 88%, heart rate of 140, respiratory rate of 36. Chest x-ray in the ER showed bilateral infiltrate. He was started on IV antibiotics and noninvasive ventilation. Patient had improved by the time he came here. Management was as follows: 1. Acute hypoxic respiratory failure likely secondary to COPD exacerbation/pleural effusion. Official chest x-ray report here does not comment on pneumonia even though the original chest x-ray for the [facility] said bilateral pneumonia. Patient improved off BiPAP soon after arrival to the ICU, did well for a short while on room air, improved to 3-4 L of oxygen. He was examined for ambulatory oxygen and qualified. His pulse oximetry showed oxygen sat of 85% ambulating on room, improved to 94% 3 L of oxygen. It was 88% at rest. He will follow-up with his primary quality assurance lead in [facility]. 2. Acute COPD exacerbation, mild, secondary to acute rhinovirus bronchitis, discharged on as needed breathing treatments and oral steroids. 3. Left pleural effusion, moderate-sized, community-acquired pneumonia ruled out with repeat chest x-ray here, he has been off antibiotics. A thoracocentesis will be planned for the outpatient 4. Left upper lobe mass, likely to be malignant, will need to be followed up with quality assurance lead and oncology the outpatient 5. Sinus tachycardia likely secondary to beta-abhi withdrawal, resolved with resumption of home medications 6. Hypertension, controlled, continue on home medications 7. Prostate cancer following with oncology. 8. Iron deficiency anemia, on p.o. iron Discharge Diet: Low fat/ Low Cholesterol, 2000 mg Sodium Diet Discharge Activity: Return to Normal Activity Home Medications: Medications to take at Discharge Albuterol Aerosols [Ventolin Aerosols] 2.5 mg INHALATION Q6H PRN PRN 11/19/17 Amlodipine [Norvasc] 10 mg PO DAILY 11/19/17 Aspirin E.C. [Ecotrin] 81 mg PO DAILY@0800 11/19/17 Ferrous Sulfate 325 mg PO DAILY@0800 11/19/17 Metoprolol Tartrate [Lopressor (beta abhi)] 50 mg PO BID 11/19/17 Nebulizer Accessories 11/19/17 Nebulizer and Compressor 11/19/17 Omeprazole [Prilosec] 40 mg PO BREAKFAST 11/19/17 Terazosin HCl [Hytrin] 2 mg PO QHS 11/19/17 Tiotropium [place] [Spiriva 18 MCG] 1 puff INHALATION DAILY 11/19/17 Prednisone [Deltasone] 40 mg PO DAILY #4 tab 11/20/17 Following Prescrptions Were Given to Patient: Prednisone [Deltasone] 40 mg PO DAILY #4 tab Primary Care Physician: Yeny Bautista NP-C [Primary Care Provider] - Please follow up with your Primary Care Physician in: within 2 weeks When: Follow-up with your quality assurance lead in 1 week Disposition: Home Minutes spent on discharge:: 40 Patient Condition:: Stable Medical Necessity - Tobacco Use Smoking Status: Former smoker Tobacco Use: Cigarettes Meaningful Use Info Meaningful Use Diagnoses (Choose all that apply): None applicable Code Visit Inpatient E&M: 99825 Disch Hosp
[2017-11-20] MEDS: Metoprolol Tartrate 50 MG Tablet PO (10:11)
[2017-11-20] MEDS: amLODIPine 10 MG Tablet PO (10:11)
[2017-11-20] MEDS: Enoxaparin 40 MG/0.4 ML Syringe SC (10:11)
--- NOTE | 2017-11-20 11:38 | CASEMGMT ---
Pt qualifies for home oxygen at this time and also, therapy recommends a wheeled walker for pt at this time. Referrals faxed to Pat at this time to [phone]. This RN CM will place a call to verify received. Bibi REYES CM
--- NOTE | 2017-11-20 12:22 | NURSING ---
pt's aware of discharge orders and waiting on O2 tank and walker to be delivered.
== END 2017-11-20 14:30 | disposition home or self-care (01) | DRG 190 ==
PROVIDERS: Internal Medicine Critical Care Medicine; Admitting Provider Family Medicine; Family Provider Nurse Practitioner Adult Health; PCP Nurse Practitioner Adult Health; Visit Provider Internal Medicine
DX: J44.0 Chronic obstructive pulmonary disease with (acute) lower respiratory infection (principal); J96.01 Acute respiratory failure with hypoxia; J90 Pleural effusion, not elsewhere classified; J20.6 Acute bronchitis due to rhinovirus; J44.1 Chronic obstructive pulmonary disease with (acute) exacerbation; I10 Essential (primary) hypertension; C61 Malignant neoplasm of prostate; R39.11 Hesitancy of micturition; D50.9 Iron deficiency anemia, unspecified; Z79.82 Long term (current) use of aspirin; Z79.899 Other long term (current) drug therapy; Z87.891 Personal history of nicotine dependence
CPT/HCPCS: 71045; 80048; 80053; 83036; 83880; 85025; 85027; 87070; 87205; 87449; 87633; 87641; 94640; 97162; 97165; 97802; J7030; J7050; A4216

== ENCOUNTER → 2017-12-13 12:53 | Outpatient (CLI) | payer MEDICARE, SELFPAY ==
[2017-12-13 13:16] LABS: Hematocrit 29.4 % (40-54); Hemoglobin 8.8 g/dl (13.0-16.5); Mean Corp Hgb Conc 29.9 g/gl (32-36); Mean Corpuscular Hgb 25.7 pg (27.0-32.0); Mean Corpuscular Volume 85.7 fL (80-94); Mean Platelet Vol. 8.8 fl (6.2-12.0); Platelet Count 280 K/mm3 (150-450); RBC Distribution Width CV 15.5 % (11.6-14.6); RBC Distribution Width SD 48.4 fl (35.1-43.9); Red Blood Count 3.43 M/mm3 (4.6-6.2); White Blood Count 6.9 K/mm3 (4.4-11.0)
--- NOTE | 2017-12-13 13:16 | US_ITS ---
STUDY: SUPERFICIAL ULTRASOUND - BILATERAL PLEURAL SPACES. REASON FOR EXAM: Male, 76 years old. Possible effusions. TECHNIQUE: A superficial ultrasound was performed with real-time and static ngo-scale imaging. COMPARISON: None. FINDINGS: No right pleural effusion is seen. Tiny left pleural effusion with septations. This is too small for a safe thoracentesis. US/Chest IMPRESSION: Not enough pleural effusion for successful thoracentesis. Electronically Signed: Xavier Tai MD at 15:30 EDT Tel [phone], Service support ,
[2017-12-13 13:17] LABS: Scan Indicated on CBC? Y/N NO
[2017-12-13 13:26] LABS: International Normalized Ratio 1.2; Prothrombin Time (Protime)PT. 14.9 SECONDS (11.7-14.9)
[2017-12-13 13:27] LABS: Partial Thromboplast Time 32.9 Seconds (24.1-36.2)
[2017-12-13 13:39] LABS: ALB/GLOB Ratio 0.5 RATIO (0.9-2.4); Globulin 4.8 g/dL (2.2-4.2); LDH 147 U/L (87-241); Protein, Total 7.2 g/dL (6.4-8.2)
== END ==
PROVIDERS: Family Provider Nurse Practitioner Adult Health; PCP Nurse Practitioner Adult Health; Visit Provider Nurse Practitioner Acute Care
DX: J90 Pleural effusion, not elsewhere classified (principal); R06.02 Shortness of breath; Z85.46 Personal history of malignant neoplasm of prostate
CPT/HCPCS: 36415; 76604; 83615; 84156; 85027; 85610; 85730

== ENCOUNTER 2018-01-16 21:55 | Inpatient (IN) | payer MEDICARE, SELFPAY ==
[2018-01-16 22:12] VITALS: BMI 20.2
--- NOTE | 2018-01-16 22:12 | PCM.HP.STD ---
Problem List (1) Fall Status: Acute (2) COPD (chronic obstructive pulmonary disease) Status: Chronic Qualifiers: COPD type: COPD with acute lower respiratory infection Qualified Code(s): J44.0 - Chronic obstructive pulmonary disease with acute lower respiratory infection (3) CAP (community acquired pneumonia) Status: Acute Qualifiers: Laterality: unspecified laterality Qualified Code(s): J18.9 - Pneumonia, unspecified organism (4) Pleural effusion Status: Acute (5) Heart failure Status: Suspected History of Present Illness Date of Admission: 01/16/18 Chief Complaint: Shortness of breath The patient is a 77 year old M with a significant history of COPD with home oxygen 4 L [id number], hypertension, BPH, stage I prostate cancer who was transferred from [facility] emergency department to our hospital on the same day. Patient went to [facility] because he fell and landed on his left side. Patient and his was camping in a 40 foot trailer away from home. Patient was watching TV, got up from a recliner; moved 1-2 step forward and fell backward. Patient and his thinks that patient fell because of extreme shortness of breath. Patient has baseline COPD as aforementioned; and in the last 1 month he has been having progressively worsening shortness of breath. He has not noted a change in his baseline productive cough. His cough is productive for greenish to yellowish sputum. At [facility] a chest x-ray was interpreted as large left pleural effusion which could conceal the opacities noted previously at the left lung base. No definite rib fracture or dislocation is noted. There is no visible pneumothorax. Incidentally, there is coarse opacification at the right lung base suggesting pneumonia. At [facility] patient received vancomycin; Zosyn; Levaquin; and IV hydration. While at [facility]; because the patient sees Dr. Nix, communication engineer, patient requested that he be brought to our hospital. Patient reported that he was sent to our radiology department about 3 weeks ago for a thoracentesis but reportedly he did not have enough fluid on his lung so he was sent home. Patient reports of supposed mass on his lungs which is no longer there. Patient's and patient thinks that recent inhalers, the patient started has rather worsened his breathing problems ] Past Medical History Past Medical History (Chronic Problems): Chronic Problems (Last Reviewed 12/20/17 @ 18:26 by LUIZ Carvajal) COPD (chronic obstructive pulmonary disease) (Chronic) Medical History: Medical History (Last Reviewed 12/20/17 @ 18:26 by LUIZ Carvajal) History of prostate cancer (Acute) Z85.46 COPD (chronic obstructive pulmonary disease) (Chronic) J44.9 CAP (community acquired pneumonia) (Acute) J18.9 Pleural effusion (Acute) J90 HTN (hypertension) I10 Allergies fluticasone [From Advair Diskus] Allergy (Verified 12/06/17 13:49) Angioedema ZHUO Inhibitors Adverse Reaction (Verified 12/06/17 13:49) Angioedema lisinopril Adverse Reaction (Verified 12/06/17 13:49) Angioedema salmeterol [From Advair Diskus] Adverse Reaction (Verified 12/06/17 13:49) Angioedema Home Medications: Ambulatory Orders Medication Instructions Recorded Albuterol Aerosols [Ventolin 2.5 mg INHALATION Q6H PRN PRN 11/19/17 Aerosols] Amlodipine [Norvasc] 10 mg PO DAILY 11/19/17 Aspirin E.C. [Ecotrin] 81 mg PO DAILY@0800 11/19/17 Ferrous Sulfate 325 mg PO DAILY@0800 11/19/17 Metoprolol Tartrate [Lopressor 50 mg PO BID 11/19/17 (beta abhi)] Nebulizer Accessories 11/19/17 Nebulizer and Compressor 11/19/17 Omeprazole [Prilosec] 40 mg PO BREAKFAST 11/19/17 Terazosin HCl [Hytrin] 2 mg PO QHS 11/19/17 Tiotropium [place] [Spiriva 18 MCG] 1 puff INHALATION DAILY 11/19/17 Tiotropium Br/Olodaterol HCl 2 puff INHALATION Q24H 01/16/18 [Stiolto Respimat Inhal [place]] Surgical History: Surgical History (Last Reviewed 12/20/17 @ 18:26 by LUIZ Carvajal) Abscess of external ear H60.00 removed 1997? H/O adenoidectomy Z90.89 H/O colonoscopy Z98.890 Dr. Jameson History of tonsillectomy Z90.89 Lung abscess J85.2 2007?, drained at [facility] Lives: Spouse/ Significant Other Smoking Status: Former smoker Tobacco Use: Non-smoker Alcohol: Sober Drugs: None - *Family History Maternal Family History: Family History (Last Reviewed 12/20/17 @ 18:26 by LUIZ Carvajal) Mother Myocardial infarction Father Myocardial infarction Brother Heart disease History Items: No pertinent history Review of Systems Constitutional: Reports: Fever - Low-grade fever measured at [facility] Eyes: Denies: Blurred vision, Pain HEENT: Denies: Head Aches, Sinus Congestion, Sinus Drainage Cardiovascular: Denies: Chest Pain, Palpitations Respiratory: Reports: Cough, Shortness of breath at rest Gastrointestinal: Denies: Abdominal Pain, Nausea, Vomiting Genitourinary: Denies: Hematuria Musculoskeletal: Reports: - - Left flank pain.. Denies: Joint Pain, Joint Tenderness Skin: Denies: Rash, Wounds Neurological: Denies: Change in Speech, Slurred speech, Confusion Psychiatric: Denies: Anxiety, Depression, Homicidal Ideations, Suicidal Ideations Hematologic/ Lymphatic: Denies: Easy Bruising, Easy Bleeding VTE Information - Inpt Only VTE Present on Admission: No VTE Mechan Device Prophylaxis: SCD's VTE Pharm Prophylaxis ordered?: Yes Patient Problems: Active and Suspected Problems (Last Reviewed 12/20/17 @ 18:26 by Pam Vail NP-C) Fall (Acute) Heart failure (Suspected) - Physical Exam General: Alert, Oriented x3, Cooperative HEENT: Atraumatic, PERRLA, EOMI, Normocephalic Neck: Supple, No JVD, Negative Carotid Bruits Lungs: Rales - Right base. Cardiovascular: Regular rate, No murmurs Abdomen: Bowel Sounds Present, Soft, Non Tender Extremities: Edema - 3+ bilateral feet., - - Bruise to left cheek of buttocks. Redness to her coccyx. Skin: No rashes Musculoskeletal: No Tenderness to Palpation of Joints or Extremities Neurological: Cranial nerves II-XII grossly intact Psych/Mental Status: Normal Affect, Appropriate Assessment/Plan All Active Problems (Last Reviewed 12/20/17 @ 18:26 by Pam Vail NP-C) Fall (Acute) History of prostate cancer (Acute) CAP (community acquired pneumonia) (Acute) Pleural effusion (Acute) The patient is a 77 year old M with a significant history of COPD with home oxygen 4 L [id number], hypertension, BPH, stage I prostate cancer with a fall, recurrent left side pleural effusion, elevated BNP bilateral leg edema; bilateral feet edema; and dyspnea with short steps. Acute hypoxic respiratory failure. Likely multifactorial from progression of COPD, progression of left-sided pleural effusion; probably pneumonia; and heart failure. Ceftriaxone and azithromycin for community-acquired pneumonia. Patient already received vancomycin, Zosyn and Levaquin at the [facility] the ED Since he is a known patient of Dr. Nix, communication engineer, and actually he came here to see him; will consult Dr. Nix. Progression of left-sided pleural effusion. Ultrasound guided thoracentesis of left side ordered Fluid studies including protein and LDH ordered. Serum protein and LDH ordered Cytology of fluid studies ordered PT/INR ordered. COPD DuoNeb scheduled Albuterol as needed Patient does not appear to be in acute flare. Steroids when ordered at this time. Mucinex ordered Suspect heart failure Lasix 40 mg IV twice daily Echocardiogram ordered Zhou wrap to bilateral feet Fluid restriction of 1,500 mL per day Cardiac diet Daily weights Fall PT and OT to work with patient Vitamin D and B12 ordered. Tylenol for pain. Hypertension Amlodipine and Cardura continued BPH Cardura continued Anemia Hemoglobin at [facility] was 7.3. Hemoglobin here is 7.6 Ferrous sulfate continued Stage 1 Prostate Cancer Patient to followed up outpatient. DVT prophylaxis Subcutaneous heparin. This note was generated with onkea dictation software. It may contain incorrect words, spelling, and punctuation that were not noted before signingthe note.
[2018-01-16 22:18] VITALS: BMI 20.2
--- NOTE | 2018-01-16 23:13 | ECHOD_ITS ---
Reason For Study: CHF Procedure This was a 2D Doppler, Color Flow transthoracic echocardiogram. Exam performed portable in patient room. Left Ventricle Normal size and thickness. The estimated ejection fraction is 65 %. Stage 1 diastolic dysfunction. No regional wall motion abnormalities noted. Right Ventricle Normal size and thickness. Normal systolic function. Atria Normal left atrium. Normal right atrium. Normal atrial septum. Mitral Valve The mitral valve is structurally normal. No prolapse or stenosis seen. Tricuspid Valve Normal tricuspid valve. Trivial tricuspid valve insufficiency. Right ventricular systolic pressure estimated to be 51 mmHg. Moderate pulmonary hypertension. Aortic Valve Normal aortic valve. Trisinus/trileaflet aortic valve. Pulmonic Valve The pulmonic valve is not well visualized. Great Vessels Normal aortic root. Normal arch. Normal inferior vena cava. Inferior vena cava collapse with sniff. Pericardium/Pleural Trivial pericardial effusion. There are no echocardiographic indications of cardiac tamponade. Moderate size left pleural effusion. MMode/2D Measurements & Calculations LVIDd: 4.1 cm IVSd: 0.88 cm Ao root diam: 3.0 cm LVIDs: 2.5 cm LVPWd: 0.72 cm FS: 38.1 % LAV(MOD-bp): 25.9 ml EDV(MOD-sp4): 40.9 ml SV(MOD-sp4): 28.3 ml LAV(MOD-bp) Indexed: 14.4 ml/m2 ESV(MOD-sp4): 12.6 ml LAV(MOD-sp2): 33.4 ml EF(MOD-sp4): 69.2 % LAV(MOD-sp4): 17.4 ml LA A4 area: 9.2 cm2 RA A4 area: 12.5 cm2 Doppler Measurements & Calculations MV E max raj: 66.5 cm/sec Lat Peak E' Raj: 6.5 cm/sec Med Peak E' Raj: 3.8 cm/sec MV A max raj: 81.6 cm/sec E/E' lat: 10.2 E/E' med: 17.5 MV E/A: 0.81 Ao V2 max: 144.8 cm/sec LV V1 max: 115.8 cm/sec PA V2 max: 93.5 cm/sec Ao max P.4 mmHg LV V1 max P.4 mmHg Ao V2 mean: 95.5 cm/sec Ao mean P.1 mmHg Ao V2 VTI: 25.8 cm TR max raj: 337.2 cm/sec TR max P.5 mmHg Interpretation Summary The estimated ejection fraction is 65 %. Stage 1 diastolic dysfunction. Trivial tricuspid valve insufficiency. Right ventricular systolic pressure estimated to be 51 mmHg. Moderate pulmonary hypertension. Trivial apical pericardial effusion. There are no echocardiographic indications of cardiac tamponade. Moderate size left pleural effusion. Compared to echo report dated 04/08/2006, LV function has remained the same, but RVSP has increased from 45 to 51 mm Hg. No pleural or pericardial fluid noted at that time. Ordering Physician: Darci Fonseca Referring Physician: Pam Vail Performed By: Natali Dhaliwal RDCS, RVT
[2018-01-16 23:30] VITALS: BP 134/72; PULSE 94; RESP 16; TEMP 36.6; O2SAT 94
[2018-01-16 23:54] LABS: Absolute Lymphocyte Count 0.77 X10^3/ul (0.83-4.51); Absolute Neutrophil Count 7.1 X10^3/uL (2.0-7.7); Basophil# 0.02 X10^3/uL; Basophil% 0.2 % (0-1); Eosinophil# 0.01 X10^3/uL; Eosinophils% 0.1 % (0-5); Hematocrit 25.8 % (40-54); Hemoglobin 7.6 g/dl (13.0-16.5); Lymphocyte # 0.77 X10^3/ul (4.0); Lymphocyte % 8.9 % (19-41); Mean Corp Hgb Conc 29.5 g/gl (32-36); Mean Corpuscular Hgb 24.4 pg (27.0-32.0); Mean Corpuscular Volume 82.7 fL (80-94); Mean Platelet Vol. 8.6 fl (6.2-12.0); Monocyte# 0.81 X10^3/uL; Monocyte% 9.3 % (0-10); Neutrophil # 7.05 X10^3/uL (2.7-7.7); Neutrophil % 81.3 % (47-70); Platelet Count 384 K/mm3 (150-450); RBC Distribution Width CV 16.3 % (11.6-14.6); RBC Distribution Width SD 47.7 fl (35.1-43.9); Red Blood Count 3.12 M/mm3 (4.6-6.2); White Blood Count 8.7 K/mm3 (4.4-11.0)
[2018-01-16 23:55] LABS: POSITIVE COUNT NO; POSITIVE DIFFERENTIAL NO; POSITIVE MORPHOLOGY NO
[2018-01-17] VITALS (17 sets, daily range): BP systolic 102–134; BP diastolic 54–73; PULSE 80–123; RESP 16–22; TEMP 36.2–36.9; O2SAT 4–97
--- NOTE | 2018-01-17 | RAD_ITS ---
STUDY: X-RAY CHEST REASON FOR EXAM: Male, 77 years old. TECHNIQUE: 2 views COMPARISON: None. FINDINGS: There is cardiomegaly with a left lower lobe posteriorly which may represent effusion. Areas of consolidation in the right lung base. No right-sided effusion. Normal visualized thoracic spine. Normal visualized ribs, clavicles, and shoulders. There is no demonstrated abnormality of the visualized soft tissue structures of the upper abdomen. RAD/Special CXR (//A/L) IMPRESSION: Cardiomegaly with a left sided effusion. Areas of consolidation in the right lower lobe. Electronically Signed: Saeed East, at 3:50 EDT Tel , Service support ,
--- NOTE | 2018-01-17 | RAD_ITS ---
STUDY: X-RAY CHEST REASON FOR EXAM: Male, 77 years old. Shortness of breath TECHNIQUE: 2 views COMPARISON: None. FINDINGS: There is cardiomegaly with an area of consolidation in the right lower lobe. There is a left-sided pleural effusion and an elevated left hemidiaphragm. Normal visualized thoracic spine. Normal visualized ribs, clavicles, and shoulders. There is no demonstrated abnormality of the visualized soft tissue structures of the upper abdomen. RAD/Chest PA and Lateral IMPRESSION: Cardiomegaly with a left-sided pleural effusion and elevated left hemidiaphragm. Areas of consolidation in the right lower lobe Electronically Signed: Saeed East, at 3:53 EDT Tel , Service support ,
--- NOTE | 2018-01-17 | RAD_ITS ---
STUDY: X-RAY CHEST REASON FOR EXAM: Male, 77 years old. Shortness of breath TECHNIQUE: 1 view COMPARISON: None. FINDINGS: Bilateral small pleural effusions. Elevated left hemidiaphragm. Area of consolidation in the right lung base. Mild cardiomegaly.. Normal visualized thoracic spine. Normal visualized ribs, clavicles, and shoulders. There is no demonstrated abnormality of the visualized soft tissue structures of the upper abdomen. RAD/Special CXR (//A/L) IMPRESSION: Bilateral small pleural effusions. Elevated left hemidiaphragm. A of consolidation in the right lung base. Electronically Signed: Saeed East, at 3:57 EDT Tel , Service support ,
[2018-01-17] MEDS: 0.9% NaCl Peripheral Flush Adult/Peds IV ×5 (00:36→21:50)
[2018-01-17] MEDS: Furosemide 40 MG/4 ML Vial IV ×3 (00:36→16:56)
--- NOTE | 2018-01-17 02:55 | US_ITS ---
PROCEDURE: ULTRASOUND GUIDED THORACENTESIS. CLINICAL INDICATION: Left pleural effusion. Diagnostic and therapeutic ultrasound-guided thoracentesis requested. PHYSICIAN: Dr. Larry MEDICATIONS: 2% lidocaine administered subcutaneously for local anesthesia. ACCESS SITE: Left lower thorax, posterior approach. CATHETER: 5 [place] thoracentesis needle/catheter system. FLUID: Approximately 536 mL of initially whitish and then brown-reddish pleural fluid removed including 2 60 cc syringes for laboratory. COMPLICATIONS: None immediate identified. The risks, benefits and alternatives to the procedure were explained to the patient. The specific risks of bleeding, infection and pneumothorax requiring chest tube insertion were discussed and accepted. Written and witnessed informed consent was obtained. PROCEDURE: Ultrasound evaluation of the left lower pleural space was carried out. An adequate pocket was identified. The patient was placed in the sitting, upright position. The overlying skin was prepped and draped in sterile fashion. 2 % lidocaine was administered subcutaneously for local anesthesia. Under ultrasound guidance, a 5 [place] thoracentesis needle/catheter system was advanced into the left posterior lower pleural fluid collection. The inner stylet was removed and there was spontaneous flow of pleural fluid. Approximately 536 mL of fluid was manually aspirated. The catheter was removed. Hemostasis was achieved and a sterile dressing was applied. A specimen was collected and sent to the laboratory for analysis, as requested by the referring clinician. The patient tolerated the procedure well, without immediate complications. A chest x-ray was ordered. US/Thoracentesis W US IMPRESSION: Successful ultrasound-guided left thoracentesis. Electronically Signed: Aiden Larry, at 17:03 EDT Tel , Service support ,
[2018-01-17] MEDS: Ipratropium 0.5 MG/2.5 ML SOLUTION INHALATION ×3 (06:45→19:15)
[2018-01-17 07:39] LABS: International Normalized Ratio 1.4; Prothrombin Time (Protime)PT. 16.9 SECONDS (11.7-14.9)
[2018-01-17 07:49] LABS: Partial Thromboplast Time 39.4 Seconds (24.1-36.2)
[2018-01-17] MEDS: Ceftriaxone 1 GM/50 ML BAG IV ×2 (07:54→20:58)
[2018-01-17 08:28] LABS: ALB/GLOB Ratio 0.4 RATIO (0.9-2.4); BUN 8 mg/dL (7-18); BUN/Creat Ratio 7.7 RATIO (10-20); Calcium,Total 8.8 mg/dL (8.5-10.1); Chloride 99 mmol/L (98-107); Creatinine, Serum 1.04 mg/dL (0.70-1.30); EST Glomerular Filtration Rate 74 mL/min (>60); Est Glom Filt Rate - Afr Amer 90 mL/min (>60); Estimated Creatinine Clearance 51.65 ml/min; Globulin 5.2 g/dL (2.2-4.2); Glucose 95 mg/dL (74-106); Potassium 3.2 mmol/L (3.5-5.1); Protein, Total 7.5 g/dL (6.4-8.2); Sodium Level 137 mmol/L (136-145)
[2018-01-17 08:29] LABS: Anion Gap 10 (5-15); LDH 145 U/L (87-241)
[2018-01-17 09:23] LABS: Hematocrit 25.5 % (40-54); Hemoglobin 7.5 g/dl (13.0-16.5)
--- NOTE | 2018-01-17 09:34 | CON.PCM_ITS ---
Problem List (1) Fall Status: Acute Qualifiers: Encounter type: initial encounter Qualified Code(s): W19.XXXA - Unspecified fall, initial encounter (2) Heart failure Status: Suspected (3) History of prostate cancer Status: Acute (4) COPD (chronic obstructive pulmonary disease) Status: Chronic Qualifiers: COPD type: COPD with acute lower respiratory infection Qualified Code(s): J44.0 - Chronic obstructive pulmonary disease with acute lower respiratory infection (5) CAP (community acquired pneumonia) Status: Resolved Qualifiers: Laterality: unspecified laterality Qualified Code(s): J18.9 - Pneumonia, unspecified organism (6) Pleural effusion Status: Acute Reason for Consult Date of Consultation: 01/17/18 Reason for Consultation: Pleural effusion History of Present Illness: The patient is a 77 year old M, with past medical history listed below, who presented to [facility] from [facility] on 01/16/2018 secondary to shortness of breath and recent fall. Patient reportedly has a history of COPD and had noted increasing shortness of breath over last 1-2 days. Patient reportedly had slid down to the floor on his left side. Upon standing, patient fell backwards. Patient's believes this was secondary to severe shortness of breath. In the emergency room, patient was noted to have a large left-sided pleural effusion without definitive rib fracture or dislocation. Patient was given healthcare acquired antibiotics and IV hydration and was transported to [facility]. On the floor, patient reports no subjective change compared to previous. Patient denies any current chest pain, nausea or vomiting. Patient has not had any change in sputum production. Patient does state that he has been increasing his supplemental oxygen at home secondary to worsening dyspnea. Patient was seen for a similar type presentation back in November by our service. Patient had received diuretics and antibiotics at that time. Patient responded briskly and outpatient evaluation for possible thoracentesis showed no significant collection. No thoracentesis has been completed. Patient does have a history of prostate cancer, but is not currently receiving any chemotherapy. Patient was initiated on inhalers, but states that he feels this has made him slightly worse and not improved. Review of systems otherwise negative ?10 systems. Past Medical History Past Medical History (Chronic Problems): Chronic Problems (Last Reviewed 12/20/17 @ 18:26 by LUIZ Carvajal) COPD (chronic obstructive pulmonary disease) (Chronic) Medical History: Medical History (Last Reviewed 12/20/17 @ 18:26 by Pam Vail NP-C) History of prostate cancer (Acute) Z85.46 COPD (chronic obstructive pulmonary disease) (Chronic) J44.9 CAP (community acquired pneumonia) (Acute) J18.9 Pleural effusion (Acute) J90 HTN (hypertension) I10 Allergies fluticasone [From Advair Diskus] Allergy (Verified 01/16/18 23:19) Angioedema JOSESITO Inhibitors Adverse Reaction (Verified 01/16/18 23:19) Angioedema lisinopril Adverse Reaction (Verified 01/16/18 23:19) Angioedema salmeterol [From Advair Diskus] Adverse Reaction (Verified 01/16/18 23:19) Angioedema Home Medications: Ambulatory Orders Medication Instructions Recorded Albuterol Aerosols [Ventolin 2.5 mg INHALATION Q6H PRN PRN 11/19/17 Aerosols] Amlodipine [Norvasc] 10 mg PO DAILY 11/19/17 Aspirin E.C. [Ecotrin] 81 mg PO DAILY@0800 11/19/17 Ferrous Sulfate 325 mg PO DAILY@0800 11/19/17 Metoprolol Tartrate [Lopressor 50 mg PO BID 11/19/17 (beta abhi)] Nebulizer Accessories 11/19/17 Nebulizer and Compressor 11/19/17 Omeprazole [Prilosec] 40 mg PO BREAKFAST 11/19/17 Terazosin HCl [Hytrin] 2 mg PO QHS 11/19/17 Tiotropium [place] [Spiriva 18 MCG] 1 puff INHALATION DAILY 11/19/17 Tiotropium Br/Olodaterol HCl 2 puff INHALATION Q24H 01/16/18 [Stiolto Respimat Inhal Tilly] Surgical History: Surgical History (Last Reviewed 12/20/17 @ 18:26 by Pam Vail NP-C) Abscess of external ear H60.00 removed 1997? H/O adenoidectomy Z90.89 H/O colonoscopy Z98.890 Dr. Jameson History of tonsillectomy Z90.89 Lung abscess J85.2 2007?, drained at [facility] Lives: Spouse/ Significant Other Smoking Status: Former smoker Tobacco Use: Non-smoker Alcohol: Sober Drugs: None - *Family History Maternal Family History: Family History (Last Reviewed 12/20/17 @ 18:26 by LUIZ Carvajal) Mother Myocardial infarction Father Myocardial infarction Brother Heart disease History Items: No pertinent history Review of Systems Comment: See HPI Patient Problems: Active and Suspected Problems (Last Reviewed 12/20/17 @ 18:26 by LUIZ Carvajal) Fall (Acute) Heart failure (Suspected) Objective: Chest x-ray was personally reviewed and shows right-sided infiltrate with left effusion that is moderate. No obvious rib fractures are appreciated. - Physical Exam General: Alert, Oriented x3, Cooperative, No apparent distress, - - Appears stated age. Speaking in full sentences. HEENT: Atraumatic, PERRLA, EOMI, Normocephalic, - - No scleral icterus or injection noted. Glasses in place. Oral: Moist Mucosa, No Gingival or Mucosal Lesions/ Ulcerations Neck: Supple, No Nodes, Trachea Midline, JVD, Right Lungs: No rhonchi, No wheeze, Diminished - Left base, Rales - Left greater than right, - - Dullness to percussion at the left base Cardiovascular: Normal S1, Normal S2, No murmurs, No rub noted, No Gallop, Tachycardic Abdomen: Bowel Sounds Present, Soft, Non Tender, Non-Distended Extremities: No cyanosis, No edema, Capillary Refill Less than 3 Seconds, Clubbing Skin: No rashes, No breakdown, - - No ecchymosis noted in the left chest Musculoskeletal: No Tenderness to Palpation of Joints or Extremities Lymphatic: No Cervical, Supraclavicular, or Inguinal Adenopathy Neurological: Cranial nerves II-XII grossly intact, Neuro grossly intact, Motor Exam 5/5 strength throughout Psych/Mental Status: Normal Affect, Appropriate Vital Signs Temp Pulse Resp BP Pulse Ox 36.7 C 100 18 123/63 H 96 01/17/18 07:49 01/17/18 07:49 01/17/18 07:49 01/17/18 07:49 01/17/18 07:49 Oxygen Flow Rate (L/min) 4 Oxygen Delivery Method Nasal Cannula Weight: 59.5 kg Body Mass Index (BMI) 20.2 Intake and Output for Last 24 Hours 01/15/18 01/16/18 01/17/18 23:59 23:59 23:59 Output Total 2200 / 2200 Balance -2200 / -2200 Microbiology Past 72 Hours 01/16/18 23:30 Legionella Antigen - Final Urine, Clean Catch 01/16/18 23:30 Streptococcus pneumoniae Antigen (M - Final Urine, Clean Catch Laboratory Tests Past 24 Hrs 01/16/18 01/17/18 01/17/18 23:20 07:00 07:00 WBC 8.7 RBC 3.12 L Hgb 7.6 L Hct 25.8 L MCV 82.7 MCH 24.4 L MCHC 29.5 L RDW 16.3 H RDW Differential 47.7 H Plt Count 384 MPV 8.6 Immature Gran % (Auto) 0.200 Neut % (Auto) 81.3 H Lymph % (Auto) 8.9 L Sully % (Auto) 9.3 Eos % (Auto) 0.1 Baso % (Auto) 0.2 Absolute Neuts (auto) 7.1 Absolute Lymphs (auto) 0.77 L Total Counted Not Reportable PT INR APTT Sodium Cancelled 137 Potassium Cancelled 3.2 L Chloride Cancelled 99 Carbon Dioxide Cancelled 28.0 Anion Gap Cancelled 10 BUN Cancelled 8 Creatinine Cancelled 1.04 Estim Creat Clear Calc Cancelled 51.65 Est GFR (MDRD) Af Amer Cancelled 90 Est GFR (MDRD) Non-Af Cancelled 74 BUN/Creatinine Ratio Cancelled 7.7 L Glucose Cancelled 95 Calcium Cancelled 8.8 Lactate Dehydrogenase 145 Total Protein 7.5 Globulin 5.2 H Albumin/Globulin Ratio 0.4 L Vitamin B12 Vitamin D 25-Hydroxy 01/17/18 01/17/18 01/17/18 07:00 07:00 07:00 WBC RBC Hgb Hct MCV MCH MCHC RDW RDW Differential Plt Count MPV Immature Gran % (Auto) Neut % (Auto) Lymph % (Auto) Sully % (Auto) Eos % (Auto) Baso % (Auto) Absolute Neuts (auto) Absolute Lymphs (auto) Total Counted PT 16.9 H INR 1.4 APTT 39.4 H Sodium Potassium Chloride Carbon Dioxide Anion Gap BUN Creatinine Estim Creat Clear Calc Est GFR (MDRD) Af Amer Est GFR (MDRD) Non-Af BUN/Creatinine Ratio Glucose Calcium Lactate Dehydrogenase Total Protein Globulin Albumin/Globulin Ratio Vitamin B12 Pending Vitamin D 25-Hydroxy Pending 01/17/18 07:00 WBC RBC Hgb 7.5 L Hct 25.5 L MCV MCH MCHC RDW RDW Differential Plt Count MPV Immature Gran % (Auto) Neut % (Auto) Lymph % (Auto) Sully % (Auto) Eos % (Auto) Baso % (Auto) Absolute Neuts (auto) Absolute Lymphs (auto) Total Counted PT INR APTT Sodium Potassium Chloride Carbon Dioxide Anion Gap BUN Creatinine Estim Creat Clear Calc Est GFR (MDRD) Af Amer Est GFR (MDRD) Non-Af BUN/Creatinine Ratio Glucose Calcium Lactate Dehydrogenase Total Protein Globulin Albumin/Globulin Ratio Vitamin B12 Vitamin D 25-Hydroxy Clinical Impression(s) from Imaging Studies Chest X-Ray 01/17/18 00:00 IMPRESSION: Cardiomegaly with a left-sided pleural effusion and elevated left hemidiaphragm. Areas of consolidation in the right lower lobe Electronically Signed: Saeed McdanielShraddha, at 3:53 EDT Tel , Service support , Chest X-Ray 01/17/18 00:00 IMPRESSION: Bilateral small pleural effusions. Elevated left hemidiaphragm. A of consolidation in the right lung base. Electronically Signed: Saeed McdanielShraddha, at 3:57 EDT Tel , Service support , Chest X-Ray 01/17/18 00:00 IMPRESSION: Cardiomegaly with a left sided effusion. Areas of consolidation in the right lower lobe. Electronically Signed: [place] Cruzito, at 3:50 EDT Tel , Service support , Assessment/Plan All Active Problems (Last Reviewed 12/20/17 @ 18:26 by Pam Vail NP-Juvencio) Fall (Acute) History of prostate cancer (Acute) CAP (community acquired pneumonia) (Resolved) Pleural effusion (Acute) RECOMMENDATIONS: 1. Obtain diagnostic and therapeutic thoracentesis 2. Wean oxygen as tolerated 3. Await sputum culture, discontinue antibiotics if negative at 48 hours 4. Empiric diuretic therapy 5. Walking oximetry prior to discharge IMPRESSIONS: 1. Acute hypoxic respiratory insufficiency secondary to pleural effusion/ COPD Patient does not appear to be in a COPD exacerbation on my assessment. Patient does have a moderate left sided pleural effusion. This is concerning for its rapid recurrence. Would recommend obtaining thoracentesis for classification of exudate versus transudate. Patient does have untreated prostate cancer. CT scan following thoracentesis would not be unreasonable if found to be exudative. Wean oxygen as tolerated. Likely discontinue antibiotics at 48 hours if culture is negative. 2. Reported COPD Unknown severity at this time. Patient is on bronchodilator therapy at home per his report. Patient is not reporting any significant productive cough or change in sputum to indicate a COPD exacerbation. Likely reasonable to continue with bronchodilators. Agree with holding steroid therapy for now. 3. Possible congestive heart failure Patient does report occasional lower extremity swelling. Patient does have a left pleural effusion. If thoracentesis is consistent with a transudate of process, evaluation with echocardiogram would be reasonable. Patient has received care at [facility] previously. Would likely benefit from obtaining old records for comparison. Patient did have resolution with diuretic therapy in the past. 4. Prostate cancer/advanced age/iron deficiency/hypertension Complicates care, management, recovery and prognosis. Likely okay to continue with iron supplementation. Monitor for urinary retention. Code Visit Inpatient E&M: 64592 Init Hosp L3
--- NOTE | 2018-01-17 09:37 | PCM.PN.HOSP ---
Patient Problems: Active and Suspected Problems (Last Reviewed 12/20/17 @ 18:26 by LUIZ Carvajal) Fall (Acute) Heart failure (Suspected) Subjective: Patient is a 77-year-old male with a past medical history of chronic hypoxic respiratory failure due to COPD, on 4 L of home oxygen, hypertension, BPH, stage I prostate cancer and a history of pleural effusion. He was admitted via the ED from [facility]. He Saturday after he fell and landed on his left side. He denies any dizziness or lightheadedness or loss of consciousness and denies hitting his head in just fell backwards. Patient that he fell because he had been very short of breath. He has been having worsening shortness of breath over the past 1 month and had a cough productive of yellowish to greenish sputum. Chest x-ray done showed a large left pleural effusion which could conceal opacities noted previously in the left lung base with no fracture or dislocation noted. He was started on IV vancomycin and Zosyn and transferred here because his submersible pilot is Dr. Nix here. He is due to thoracocentesis today. Patient seen and examined. Still complaining of feeling short of breath but was on 4 L of oxygen which is his baseline. He denies any cough, any chest pain, any abdominal pain, any diarrhea vomiting. Review of systems was otherwise negative. 12 point review of systems negative. Labs and vitals reviewed. Vitals/I&O's: Vital Signs Temp Pulse Resp BP Pulse Ox 98.0 F 100 18 123/63 H 96 01/17/18 07:49 01/17/18 07:49 01/17/18 07:49 01/17/18 07:49 01/17/18 07:49 Oxygen Flow Rate (L/min) 4 Oxygen Delivery Method Nasal Cannula Weight: 131 lb 2.801 oz Body Mass Index (BMI) 20.2 Intake and Output for Last 24 Hours 01/15/18 01/16/18 01/17/18 23:59 23:59 23:59 Output Total 2199 / 2199 Balance -2199 / -2199 General: Alert, Oriented x3, Cooperative, No apparent distress HEENT: Atraumatic, PERRLA, EOMI, Normocephalic Oral: Moist Mucosa Neck: Supple, No JVD, Negative Carotid Bruits Lungs: - - decreased breath sounds in left lower lung murry, with decreased vocal fremitus. on 4L of oxygen Cardiovascular: Regular rate, No murmurs Abdomen: Bowel Sounds Present, Soft, Non Tender, Non-Distended, No Hepato-splenomegaly Extremities: No clubbing, No cyanosis, No edema, Capillary Refill Less than 3 Seconds Skin: No rashes, No breakdown Musculoskeletal: No Tenderness to Palpation of Joints or Extremities Lymphatic: No Cervical, Supraclavicular, or Inguinal Adenopathy Neurological: Cranial nerves II-XII grossly intact, Motor Exam 5/5 strength throughout Psych/Mental Status: Normal Affect, Appropriate, Alert and oriented to time, place, person, mood and affect Microbiology Past 72 Hours 01/16/18 23:30 Urine, Clean Catch Legionella Antigen - Final 01/16/18 23:30 Urine, Clean Catch Streptococcus pneumoniae Antigen (M - Final Laboratory Results 01/16/18 23:20: WBC 8.7, RBC 3.12 L, Hgb 7.6 L, Hct 25.8 L, MCV 82.7, MCH 24.4 L, MCHC 29.5 L, RDW 16.3 H, RDW Differential 47.7 H, Plt Count 384, MPV 8.6, Immature Gran % (Auto) 0.200, Neut % (Auto) 81.3 H, Lymph % (Auto) 8.9 L, [place] % (Auto) 9.3, Eos % (Auto) 0.1, Baso % (Auto) 0.2, Absolute Neuts (auto) 7.1, Absolute Lymphs (auto) 0.77 L, Total Counted Not Reportable 01/17/18 07:00: Sodium Cancelled, Potassium Cancelled, Chloride Cancelled, Carbon Dioxide Cancelled, Anion Gap Cancelled, BUN Cancelled, Creatinine Cancelled, Estim Creat Clear Calc Cancelled, Est GFR (MDRD) Af Amer Cancelled, Est GFR (MDRD) Non-Af Cancelled, BUN/Creatinine Ratio Cancelled, Glucose Cancelled, Calcium Cancelled 01/17/18 07:00: Sodium 137, Potassium 3.2 L, Chloride 99, Carbon Dioxide 28.0, Anion Gap 10, BUN 8, Creatinine 1.04, Estim Creat Clear Calc 51.65, Est GFR (MDRD) Af Amer 90, Est GFR (MDRD) Non-Af 74, BUN/Creatinine Ratio 7.7 L, Glucose 95, Calcium 8.8, Lactate Dehydrogenase 145, Total Protein 7.5, Globulin 5.2 H, Albumin/Globulin Ratio 0.4 L 01/17/18 07:00: PT 16.9 H, INR 1.4 01/17/18 07:00: Vitamin B12 Pending, Vitamin D 25-Hydroxy Pending 01/17/18 07:00: APTT 39.4 H 01/17/18 07:00: Hgb 7.5 L, Hct 25.5 L Diagnostic Data Chest X-Ray 01/17/18 00:00 IMPRESSION: Bilateral small pleural effusions. Elevated left hemidiaphragm. A of consolidation in the right lung base. Electronically Signed: Saeed East, at 3:57 EDT Tel , Service support , Current Medications Acetaminophen (Tylenol) 650 mg PO Q4H PRN PRN PRN Reason: FEVER Amlodipine Besylate (Norvasc) 10 mg PO DAILY [facility] Aspirin (Ecotrin) 81 mg PO DAILY@0800 [facility] Bisacodyl (Dulcolax) 5 mg PO DAILY PRN PRN PRN Reason: Constipation Doxazosin Mesylate (Cardura) 2 mg PO QHS [facility] Ferrous Sulfate (Ferrous Sulfate) 325 mg PO DAILY@0800 [facility] Furosemide (Lasix) 40 mg IV BID@1000,1800 [facility] Last Admin: 01/17/18 00:36 Dose: 40 mg Guaifenesin (Mucinex) 1,200 mg PO BID [facility] Heparin Sodium (Porcine) (Heparin Na) 5,000 unit SC Q12 [facility] Azithromycin 500 mg/ Dextrose 255 mls @ 250 mls/hr IV Q24 [facility] Stop: 01/19/18 11:02 Ceftriaxone Sodium (Rocephin) 1 gm in 50 mls @ 100 mls/hr IV Q12 [facility] Last Admin: 01/17/18 07:54 Dose: 100 mls/hr Ipratropium [place] (Atrovent) 0.5 mg INHALATION Q6HWA.RT [facility] Last Admin: 01/17/18 06:45 Dose: 0.5 mg Magnesium Hydroxide (Milk Of Magnesia) 30 ml PO DAILY PRN PRN PRN Reason: Constipation Metoprolol Tartrate (Lopressor (Beta Ilene)) 50 mg PO BID JOSHUA Nutritional Formula (Lactose Free) (Ensure Enlive) 120 ml PO 4X/DAY JOSHUA Ondansetron HCl (Zofran) 4 mg IV Q8H PRN PRN PRN Reason: NAUSEA Oxycodone HCl (Oxyir) 5 mg PO Q4H PRN PRN PRN Reason: Moderate Pain (pain scale 4-5) Pantoprazole Sodium (Protonix) 40 mg PO BREAKFAST JOSHUA Sodium Chloride () 5 - 30 ml IV UD PRN PRN Reason: SALINE FLUSH Last Admin: 01/17/18 07:53 Dose: 10 ml Zolpidem Tartrate (Ambien (Generic)) 5 mg PO QHS PRN PRN PRN Reason: SLEEP Medical Necessity - Tobacco Use Smoking Status: Former smoker Tobacco Use: Non-smoker Assessment/Plan All Active Problems (Last Reviewed 12/20/17 @ 18:26 by Pam Vail, SHAYLEE-C) Fall (Acute) History of prostate cancer (Acute) CAP (community acquired pneumonia) (Resolved) Pleural effusion (Acute) 1. Acute on chronic hypoxic respiratory failure likely due to worsening left-sided pleural effusion, pneumonia and heart failure Get back on his baseline of 4 L of oxygen via nasal cannula. X-ray done showed cardiomegaly with area of consolidation in the right lower lobe and a left-sided pleural effusion and elevated left hemidiaphragm. Started on IV ceftriaxone and azithromycin for community-acquired pneumonia. He had received vancomycin, Zosyn and Levaquin in the [facility]. will check BNP 2. Worsening left pleural effusion has a history of pleural effusion in the past; per pulmonology documentation, he was seen for similar type of presentation back in November 2017. He was diuresed successfully and he responded an outpatient evaluation for possible thoracocentesis showed no significant collection and so he did not have any thoracocentesis done. He has a history of untreated prostate cancer and so we cannot rule out a malignant pleural effusion in this case. Ultrasound-guided thoracocentesis ordered. I was just informed by nurse that radiology does not want to do thoracocentesis since patient's hemoglobin is less than 9 and reason is not clear. Will transfuse 1 unit of packed red blood cells to build hemoglobin up so patient can have thoracocentesis. will send fluid sample for cytology, cultures, gram stain, LDH and protein pulmonology on board 3. HFrEF Has a history of heart failure. BNP not done yet. Will order BNP is to suspicion for heart failure. 2D echo ordered. On IV Lasix 40 mg twice daily. Zhou wraps to lower extremities bilaterally. 4. Worsening anemia is a normocytic, hypochromic anemia; RDW is also elevated, pointing towards iron deficiency anemia 7.6 on admission, with repeat was 7.5. Baseline is around 8.3 from previous admission. No iron panel in records. Will check iron panel and if it indicates iron deficiency anemia, will get general surgery on board. Stool Hemoccult ordered. Will transfuse 1 unit of packed red blood cells to build his hemoglobin up as radiology is deferring thoracocentesis since his hemoglobin is less than 9. 5. COPD on breathing treatments with duonebs On his baseline of 4 L of oxygen. Patient does not look to be in COPD exacerbation. We will continue breathing treatments. 6. Hypokalemia: K is 3.3. WIll replace and monitor 7. Mechanical fall PT OT on board. Tylenol for pain. Vitamin D and B12 ordered and pending. 8. Stage I prostate cancer Not yet on treatment. Will check fluid for possible malignancy as that will inform further management To follow-up on outpatient basis with oncologist 9. Hypertension: controlled. ON metoprolol and amlodipine as well as Doxazosin DVT prophylaxis: SCDs GI prophylaxis: PPI Code status: full code This note was generated with Spontactsation software. It may contain incorrect words, spelling, and punctuation that were not noted in checking the note before signing. Code Visit Inpatient E&M: 50173 Subs Hosp L3
--- NOTE | 2018-01-17 09:41 | PN_ITS ---
Patient Problems: Active and Suspected Problems (Last Reviewed 12/20/17 @ 18:26 by LUIZ Carvajal) Fall (Acute) Heart failure (Suspected) Subjective: Patient is a 77-year-old male with a past medical history of chronic hypoxic respiratory failure due to COPD, on 4 L of home oxygen, hypertension, BPH, stage I prostate cancer and a history of pleural effusion. He was admitted via the ED from [facility]. He Saturday after he fell and landed on his left side. He denies any dizziness or lightheadedness or loss of consciousness and denies hitting his head in just fell backwards. Patient that he fell because he had been very short of breath. He has been having worsening shortness of breath over the past 1 month and had a cough productive of yellowish to greenish sputum. Chest x-ray done showed a large left pleural effusion which could conceal opacities noted previously in the left lung base with no fracture or dislocation noted. He was started on IV vancomycin and Zosyn and transferred here because his special skills officer is Dr. Nix here. He is due to thoracocentesis today. Patient seen and examined. Still complaining of feeling short of breath but was on 4 L of oxygen which is his baseline. He denies any cough, any chest pain , any abdominal pain, any diarrhea vomiting. Review of systems was otherwise negative. 12 point review of systems negative. Labs and vitals reviewed. Vitals/I&O's: Vital Signs Temp Pulse Resp BP Pulse Ox 98.0 F 100 18 123/63 H 96 01/17/18 07:49 01/17/18 07:49 01/17/18 07:49 01/17/18 07:49 01/17/18 07:49 Oxygen Flow Rate (L/min) 4 Oxygen Delivery Method Nasal Cannula Weight: 131 lb 2.801 oz Body Mass Index (BMI) 20.2 Intake and Output for Last 24 Hours 01/15/18 01/16/18 01/17/18 23:59 23:59 23:59 Output Total 2199 / 2199 Balance -2199 / -2199 General: Alert, Oriented x3, Cooperative, No apparent distress HEENT: Atraumatic, PERRLA, EOMI, Normocephalic Oral: Moist Mucosa Neck: Supple, No JVD, Negative Carotid Bruits Lungs: - - decreased breath sounds in left lower lung murry, with decreased vocal fremitus. on 4L of oxygen Cardiovascular: Regular rate, No murmurs Abdomen: Bowel Sounds Present, Soft, Non Tender, Non-Distended, No Hepato- splenomegaly Extremities: No clubbing, No cyanosis, No edema, Capillary Refill Less than 3 Seconds Skin: No rashes, No breakdown Musculoskeletal: No Tenderness to Palpation of Joints or Extremities Lymphatic: No Cervical, Supraclavicular, or Inguinal Adenopathy Neurological: Cranial nerves II-XII grossly intact, Motor Exam 5/5 strength throughout Psych/Mental Status: Normal Affect, Appropriate, Alert and oriented to time, place, person, mood and affect Microbiology Past 72 Hours 01/16/18 23:30 Urine, Clean Catch Legionella Antigen - Final 01/16/18 23:30 Urine, Clean Catch Streptococcus pneumoniae Antigen (M - Final Laboratory Results 01/16/18 23:20: WBC 8.7, RBC 3.12 L, Hgb 7.6 L, Hct 25.8 L, MCV 82.7, MCH 24.4 L , MCHC 29.5 L, RDW 16.3 H, RDW Differential 47.7 H, Plt Count 384, MPV 8.6, Immature Gran % (Auto) 0.200, Neut % (Auto) 81.3 H, Lymph % (Auto) 8.9 L, [place] % (Auto) 9.3, Eos % (Auto) 0.1, Baso % (Auto) 0.2, Absolute Neuts (auto) 7.1, Absolute Lymphs (auto) 0.77 L, Total Counted Not Reportable 01/17/18 07:00: Sodium Cancelled, Potassium Cancelled, Chloride Cancelled, Carbon Dioxide Cancelled, Anion Gap Cancelled, BUN Cancelled, Creatinine Cancelled, Estim Creat Clear Calc Cancelled, Est GFR (MDRD) Af Amer Cancelled, Est GFR (MDRD) Non-Af Cancelled, BUN/Creatinine Ratio Cancelled, Glucose Cancelled, Calcium Cancelled 01/17/18 07:00: Sodium 137, Potassium 3.2 L, Chloride 99, Carbon Dioxide 28.0, Anion Gap 10, BUN 8, Creatinine 1.04, Estim Creat Clear Calc 51.65, Est GFR ( MDRD) Af Amer 90, Est GFR (MDRD) Non-Af 74, BUN/Creatinine Ratio 7.7 L, Glucose 95, Calcium 8.8, Lactate Dehydrogenase 145, Total Protein 7.5, Globulin 5.2 H, Albumin/Globulin Ratio 0.4 L 01/17/18 07:00: PT 16.9 H, INR 1.4 01/17/18 07:00: Vitamin B12 Pending, Vitamin D 25-Hydroxy Pending 01/17/18 07:00: APTT 39.4 H 01/17/18 07:00: Hgb 7.5 L, Hct 25.5 L Diagnostic Data Chest X-Ray 01/17/18 00:00 IMPRESSION: Bilateral small pleural effusions. Elevated left hemidiaphragm. A of consolidation in the right lung base. Electronically Signed: Saeed East, at 3:57 EDT Tel , Service support , Current Medications Acetaminophen (Tylenol) 650 mg PO Q4H PRN PRN PRN Reason: FEVER Amlodipine Besylate (Norvasc) 10 mg PO DAILY [facility] Aspirin (Ecotrin) 81 mg PO DAILY@0800 [facility] Bisacodyl (Dulcolax) 5 mg PO DAILY PRN PRN PRN Reason: Constipation Doxazosin Mesylate (Cardura) 2 mg PO QHS [facility] Ferrous Sulfate (Ferrous Sulfate) 325 mg PO DAILY@0800 [facility] Furosemide (Lasix) 40 mg IV BID@1000,1800 [facility] Last Admin: 01/17/18 00:36 Dose: 40 mg Guaifenesin (Mucinex) 1,200 mg PO BID [facility] Heparin Sodium (Porcine) (Heparin Na) 5,000 unit SC Q12 [facility] Azithromycin 500 mg/ Dextrose 255 mls @ 250 mls/hr IV Q24 [facility] Stop: 01/19/18 11:02 Ceftriaxone Sodium (Rocephin) 1 gm in 50 mls @ 100 mls/hr IV Q12 [facility] Last Admin: 01/17/18 07:54 Dose: 100 mls/hr Ipratropium Caspar (Atrovent) 0.5 mg INHALATION Q6HWA.RT [facility] Last Admin: 01/17/18 06:45 Dose: 0.5 mg Magnesium Hydroxide (Milk Of Magnesia) 30 ml PO DAILY PRN PRN PRN Reason: Constipation Metoprolol Tartrate (Lopressor (Beta Ilene)) 50 mg PO BID [facility] Nutritional Formula (Lactose Free) (Ensure Enlive) 120 ml PO 4X/DAY [facility] Ondansetron HCl (Zofran) 4 mg IV Q8H PRN PRN PRN Reason: NAUSEA Oxycodone HCl (Oxyir) 5 mg PO Q4H PRN PRN PRN Reason: Moderate Pain (pain scale 4-5) Pantoprazole Sodium (Protonix) 40 mg PO BREAKFAST JOSHUA Sodium Chloride () 5 - 30 ml IV UD PRN PRN Reason: SALINE FLUSH Last Admin: 01/17/18 07:53 Dose: 10 ml Zolpidem Tartrate (Ambien (Generic)) 5 mg PO QHS PRN PRN PRN Reason: SLEEP Medical Necessity - Tobacco Use Smoking Status: Former smoker Tobacco Use: Non-smoker Assessment/Plan All Active Problems (Last Reviewed 12/20/17 @ 18:26 by Pam Vail, SHAYLEE-C) Fall (Acute) History of prostate cancer (Acute) CAP (community acquired pneumonia) (Resolved) Pleural effusion (Acute) 1. Acute on chronic hypoxic respiratory failure likely due to worsening left- sided pleural effusion, pneumonia and heart failure * Get back on his baseline of 4 L of oxygen via nasal cannula. * X-ray done showed cardiomegaly with area of consolidation in the right lower lobe and a left-sided pleural effusion and elevated left hemidiaphragm. * Started on IV ceftriaxone and azithromycin for community-acquired pneumonia. He had received vancomycin, Zosyn and Levaquin in the [facility]. * will check BNP * 2. Worsening left pleural effusion * has a history of pleural effusion in the past; per pulmonology documentation, he was seen for similar type of presentation back in November 2017. He was diuresed successfully and he responded an outpatient evaluation for possible thoracocentesis showed no significant collection and so he did not have any thoracocentesis done. * He has a history of untreated prostate cancer and so we cannot rule out a malignant pleural effusion in this case. * Ultrasound-guided thoracocentesis ordered. I was just informed by nurse that radiology does not want to do thoracocentesis since patient's hemoglobin is less than 9 and reason is not clear. * Will transfuse 1 unit of packed red blood cells to build hemoglobin up so patient can have thoracocentesis. * will send fluid sample for cytology, cultures, gram stain, LDH and protein * pulmonology on board * 3. HFrEF * Has a history of heart failure. BNP not done yet. * Will order BNP is to suspicion for heart failure. * 2D echo ordered. On IV Lasix 40 mg twice daily. Zhou wraps to lower extremities bilaterally. * 4. Worsening anemia * is a normocytic, hypochromic anemia; RDW is also elevated, pointing towards iron deficiency anemia * 7.6 on admission, with repeat was 7.5. * Baseline is around 8.3 from previous admission. No iron panel in records. * Will check iron panel and if it indicates iron deficiency anemia, will get general surgery on board. * Stool Hemoccult ordered. * Will transfuse 1 unit of packed red blood cells to build his hemoglobin up as radiology is deferring thoracocentesis since his hemoglobin is less than 9. * 5. COPD * on breathing treatments with duonebs * On his baseline of 4 L of oxygen. Patient does not look to be in COPD exacerbation. * We will continue breathing treatments. * 6. Hypokalemia: K is 3.3. WIll replace and monitor * 7. Mechanical fall * PT OT on board. Tylenol for pain. Vitamin D and B12 ordered and pending. * 8. Stage I prostate cancer * Not yet on treatment. Will check fluid for possible malignancy as that will inform further management * To follow-up on outpatient basis with oncologist 9. Hypertension: controlled. ON metoprolol and amlodipine as well as Doxazosin DVT prophylaxis: SCDs GI prophylaxis: PPI Code status: full code This note was generated with [employer] dictation software. It may contain incorrect words, spelling, and punctuation that were not noted in checking the note before signing. Code Visit Inpatient E&M: 65566 Subs Hosp L3
[2018-01-17 09:58] LABS: Vitamin B12 276 pg/mL (211-911); Vitamin D,25 Hydroxy 18.3 ng/mL (29.95-100.01)
--- NOTE | 2018-01-17 09:58 | NURSING ---
Marcy, RN speaking with Dr. Pan and radiology- states that due to drop in hemoglobin patient must have 1 unit of PRBC prior to coming to have thoracentesis. Notified that latest thoracentesis can happen is 1300. This RN changed order to STAT and called both blood bank and lab to notify of necessity for STAT blood draw and infusion. Understanding verbalized and lab up on unit within 4 minutes of phone call drawing labs.
--- NOTE | 2018-01-17 10:30 | CT_ITS ---
STUDY: CT CHEST WITHOUT CONTRAST REASON FOR EXAM: Male, 77 years old. Left pleural effusion RADIATION DOSAGE (If Supplied By Facility): CTDIvol = ( 6.41 ) mGy, DLP = ( 237.75 ) mGycm TECHNIQUE: Transaxial imaging was performed without the administration of intravenous contrast material. Multiplanar coronal and sagittal images were reformatted. Individualized dose optimization techniques were used for this CT. COMPARISON: Chest x-ray January 16, 2018 FINDINGS: There is right greater than left lower lung airspace consolidation. There is right lower lung granuloma. There is small right pleural effusion. There is moderate left pleural effusion. There is a loculated 12.3 x 10.5 cm component. There are calcifications of the coronary arteries. There is a small pericardial effusion. Normal mediastinum. Normal hilar regions. Normal unenhanced pulmonary arteries. There is atherosclerotic calcification of the aortic arch with tortuosity and elongation of the aortic arch and descending thoracic aorta. There are multi-level degenerative changes of the thoracic spine. There is no demonstrated abnormality of the visualized upper abdomen. CT/Chest without Contrast IMPRESSION: Bilateral lower lung consolidation and pleural effusions. There is a large loculated fluid component on the left. Pericardial effusion. Electronically Signed: Genaro Barton MD at 11:45 EDT , Service support ,
--- NOTE | 2018-01-17 10:34 | NURSING ---
Discussed with Eliana in radiology that pt is ordered to have CT done as radiologist requested and he is being type and crossed for 1 unit PRBC to attempt to be able to get thoracentesis done today.
[2018-01-17 11:15] LABS: BNP,B-Type NATRIURETIC PEPTIDE 198.3 pg/mL (0-100)
[2018-01-17 11:24] LABS: Ferritin 1393 ng/mL (26-388); Iron 10 ug/dL (65-175); Iron Binding Capacity,Total 119 ug/dL (250-450); PERCENT IRON SATURATION 8.4 % (15.0-55.0)
--- NOTE | 2018-01-17 12:20 | CASEMGMT ---
RN PILAR Face to Face with patient for initial transition planning/care coordination assessment. RN CM introduced self and role at [facility]. Patient lying in bed, alert and oriented, . Patient willing to participate in assessment and is able to answer all questions appropriately. Care providers, pharmacy, and demographics verified. See link attached. Patient wishes to discharge home with HHC if necessary, with [facility] 1st choice. Patient also willing to go to SNF if needed, with 1st choice [facility]. Patient states he has no further needs or concerns at this time. CM to follow for discharge planning needs that may arise. Disposition Plan: TBD by coarse of treatment. CM to continue to monitor patient and therapy notes.
[2018-01-17] MEDS: Ferrous Sulfate 325 MG Tablet PO (15:05)
[2018-01-17] MEDS: amLODIPine 10 MG Tablet PO (15:06)
[2018-01-17] MEDS: guaiFENesin 1,200 MG Tablet 1200 MG PO ×2 (15:06→20:58)
[2018-01-17] MEDS: Metoprolol Tartrate 50 MG Tablet PO ×2 (15:06→20:58)
[2018-01-17 15:09] LABS: Hematocrit 29.5 % (40-54); Hemoglobin 9.1 g/dl (13.0-16.5)
--- NOTE | 2018-01-17 15:20 | NURSING ---
Discussed Pt's hemoglobin of 9.1 with Eliana in Radiology. Pt to go down for procedure now.
--- NOTE | 2018-01-17 16:13 | RAD_ITS ---
STUDY: X-RAY CHEST REASON FOR EXAM: Male, 77 years old. Left greater right pleural effusions, check for pneumothorax status post ultrasound-guided left thoracentesis. TECHNIQUE: 2 views, PA inspiration and PA exhalation views. COMPARISON: Chest 01/17/2018 at 12:[address] chest without IV contrast 01/17/2018 at 10:58 AM. FINDINGS: The lungs show left greater than right volume loss due to a pleural effusion that appears appear fairly homogeneous density on the left and heterogeneous right lung base opacity. No large gross pneumothorax identified. Heart is obscured by left basilar pleural fluid and atelectasis. Mildly prominent mediastinum and gay. Moderately enlarged visualized pulmonary arteries. Mildly calcified visualized aortic knob. No acute osseous abnormality identified. There is no demonstrated abnormality of the visualized soft tissue structures of the upper abdomen. No subdiaphragmatic free air seen grossly. RAD/Chest Insp/Exp 2 View IMPRESSION: No large gross pneumothorax status post thoracentesis identified. Decreased left pleural effusion/empyema and atelectasis/scarring. No change right lung base heterogeneous opacity, may represent atelectasis, pleural fluid, pneumonia, mass or combination. Electronically Signed: Aiden Larry, at 16:58 EDT Tel , Service support ,
--- NOTE | 2018-01-17 16:15 | FLU_PTH ---
PATIENT: WILLIAM OSWALD LOC: MS3 U#:[id number] AGE/SX: 77/M ROOM: AR322 RE01/16/[address]: Dr. Rafael Metcalf MD : [id number] BED: 1 DIS: 01/20/2018 SPEC #: [id number] RECD: 01/17/18 16:40 STATUS: AMBROSIO RELelia #: [id number] TATO: 01/17/18 16:[address]: Rafael Metcalf DEPT: CYTOLOGY RECD BY: Usman Merritt ENTERED: 01/20/18 09:17 SP TYPE: Fluid OTHR DR: MD Dr. Trung Merino, DO Yeny Bautista, ADMEASURER-C Tissues: THORACIC FLUID Procedures: Pap Stain (control) Special Stain Group II Special Stain Group I Surgery Specimen Level IV AFB Stain (control) GMS Stain (control) Cell Block Cytospin Fluid HEADER OPERATION: Ultrasound-guided thoracentesis PRE-OP DIAGNOSIS: Left pleural effusion TISSUE SUBMITTED: Thoracentesis fluid for cytology DIAGNOSIS CYTOLOGY Thoracentesis fluid for cytology (cytospin and cell block): Negative for malignant cells. Special stains for acid fast bacilli and fungi are negative for organisms; matched controls are appropriate. See cytology study and comment. SJ:rg 01/21/18 COMMENT Case has been reviewed in consultation with Dr. Blackmon who concurs with the above diagnosis. IDC:AM CYTOLOGY STUDY Slides are reviewed. The specimen consists of numerous degenerated cells and fibrinous material. CYTOLOGY GROSS Received is 50 ml of pea-green fluid labeled with the patient's name and and designated per the requisition as thoracentesis. Submitted for cytology preparation including cell block. 01/20/18 TC: CPT: 62682, 63621, 83419 x2
[2018-01-17] MEDS: Acetaminophen 325 MG Tablet 650 MG PO (20:57)
[2018-01-17] MEDS: Heparin Injection (Vial) 5,000 UNIT/ML VIAL 5000 UNIT SC (20:58)
[2018-01-17] MEDS: Zolpidem Tartrate 5 MG Tablet PO (20:58)
[2018-01-17] MEDS: Doxazosin 1 MG Tablet 2 MG PO (20:58)
--- NOTE | 2018-01-17 23:48 | NURSING ---
Patient is alert and orientated x3. Sentences/words do not always make sense (See shift assessment) additionally he is fidgeting with clothing/blankets and removing his oxygen frequently. Ambien has made the patient drowsy, but he is fighting sleep. Bed Exit remains on. Moved to room 206 directly in view of nurses station. Patient moved closer to nursing station at this time due to setting off the bed exit frequently, 15-20m, to prevent a fall from occurring. Will monitor.
[2018-01-18] VITALS (9 sets, daily range): BP systolic 91–106; BP diastolic 47–55; PULSE 60–100; RESP 16–20; TEMP 36.3–36.9; O2SAT 2–98
[2018-01-18] MEDS: Haloperidol Lactate 5 MG/ML Vial 2 MG IM (01:46)
--- NOTE | 2018-01-18 03:35 | NURSING ---
Moved to nurses station in patient recliner. Remains very restless/fidgety.
[2018-01-18] MEDS: Acetaminophen 325 MG Tablet 650 MG PO (04:39)
[2018-01-18 07:03] LABS: Absolute Lymphocyte Count 0.75 X10^3/ul (0.83-4.51); Absolute Neutrophil Count 8.4 X10^3/uL (2.0-7.7); Basophil# 0.01 X10^3/uL; Basophil% 0.1 % (0-1); Eosinophil# 0.08 X10^3/uL; Eosinophils% 0.8 % (0-5); Hematocrit 28.8 % (40-54); Hemoglobin 8.8 g/dl (13.0-16.5); Lymphocyte # 0.75 X10^3/ul (4.0); Lymphocyte % 7.3 % (19-41); Mean Corp Hgb Conc 30.6 g/gl (32-36); Mean Corpuscular Volume 81.8 fL (80-94); Mean Platelet Vol. 9.1 fl (6.2-12.0); Monocyte# 0.99 X10^3/uL; Monocyte% 9.6 % (0-10); Neutrophil # 8.43 X10^3/uL (2.7-7.7); Neutrophil % 81.8 % (47-70); Platelet Count 369 K/mm3 (150-450); RBC Distribution Width CV 16.2 % (11.6-14.6); RBC Distribution Width SD 47.2 fl (35.1-43.9); Red Blood Count 3.52 M/mm3 (4.6-6.2); White Blood Count 10.3 K/mm3 (4.4-11.0)
[2018-01-18 07:05] LABS: POSITIVE COUNT NO; POSITIVE DIFFERENTIAL NO; POSITIVE MORPHOLOGY NO
[2018-01-18 07:24] LABS: Anion Gap 12 (5-15); BUN 19 mg/dL (7-18); BUN/Creat Ratio 13.5 RATIO (10-20); Calcium,Total 8.9 mg/dL (8.5-10.1); Chloride 99 mmol/L (98-107); Creatinine, Serum 1.41 mg/dL (0.70-1.30); EST Glomerular Filtration Rate 52 mL/min (>60); Est Glom Filt Rate - Afr Amer 63 mL/min (>60); Glucose 108 mg/dL (74-106); Potassium 3.6 mmol/L (3.5-5.1); Sodium Level 139 mmol/L (136-145)
[2018-01-18] MEDS: Ipratropium 0.5 MG/2.5 ML SOLUTION INHALATION ×3 (07:27→19:49)
[2018-01-18] MEDS: Aspirin E.C. 81 MG Tablet PO (08:28)
[2018-01-18] MEDS: Pantoprazole Sodium 40 MG Tablet PO (08:28)
[2018-01-18] MEDS: Ferrous Sulfate 325 MG Tablet PO (08:28)
--- NOTE | 2018-01-18 08:33 | PCM.PROGNOTE ---
Patient Problems: Active and Suspected Problems (Last Reviewed 12/20/17 @ 18:26 by LUIZ Carvajal) Fall (Acute) Heart failure (Suspected) Subjective: Patient did well overnight. No acute issues have been reported. Patient did have a thoracentesis yesterday without complication. Patient feels that he is back to his baseline. Patient supplemental oxygen has been decreased from 4 L/min to 2 L/min and patient is tolerating this well. No cough is been reported. - Physical Exam General: Alert, Oriented x3, Cooperative, No apparent distress, - - Speaking in full sentences. HEENT: Atraumatic, PERRLA, EOMI, Normocephalic, - - No scleral icterus or injection noted. Oral: Moist Mucosa, No Gingival or Mucosal Lesions/ Ulcerations Neck: Supple, No JVD, No Nodes, Trachea Midline Lungs: No rhonchi, No wheeze, No rales, Diminished, - - Symmetric expansion. No dullness to percussion. Cardiovascular: Regular rate, Regular Rhythm, Normal S1, Normal S2, No murmurs, No rub noted, No Gallop Abdomen: Bowel Sounds Present, Soft, Non Tender, Non-Distended Extremities: No clubbing, No cyanosis, No edema, Capillary Refill Less than 3 Seconds Skin: No rashes, No breakdown Musculoskeletal: No Tenderness to Palpation of Joints or Extremities Lymphatic: No Cervical, Supraclavicular, or Inguinal Adenopathy Neurological: Cranial nerves II-XII grossly intact, Neuro grossly intact, Motor Exam 5/5 strength throughout Psych/Mental Status: Normal Affect, Appropriate Vital Signs Temp Pulse Resp BP Pulse Ox 36.3 C L 89 16 91/55 L 98 01/18/18 01:49 01/18/18 01:49 01/18/18 01:49 01/18/18 01:49 01/18/18 01:49 Oxygen Flow Rate (L/min) 4 Oxygen Delivery Method Nasal Cannula Weight: 59.5 kg Body Mass Index (BMI) 20.2 Intake and Output for Last 24 Hours 01/16/18 01/17/18 01/18/18 23:59 23:59 23:59 Intake Total 1000 / 1000 415.5 / 415.5 Output Total 3350 / 3350 450 / 450 Balance -2350 / -2350 -34.5 / -34.5 Microbiology Past 72 Hours 01/16/18 23:30 Gram Stain - Final Sputum, Expectorated/Coughed 01/16/18 23:30 Legionella Antigen - Final Urine, Clean Catch 01/16/18 23:30 Streptococcus pneumoniae Antigen (M - Final Urine, Clean Catch Laboratory Tests Past 24 Hrs 01/17/18 01/17/18 01/17/18 07:00 07:00 07:00 WBC RBC Hgb 7.5 L Hct 25.5 L MCV MCH MCHC RDW RDW Differential Plt Count MPV Immature Gran % (Auto) Neut % (Auto) Lymph % (Auto) Rolette % (Auto) Eos % (Auto) Baso % (Auto) Absolute Neuts (auto) Absolute Lymphs (auto) Total Counted Sodium Potassium Chloride Carbon Dioxide Anion Gap BUN Creatinine Estim Creat Clear Calc Est GFR (MDRD) Af Amer Est GFR (MDRD) Non-Af BUN/Creatinine Ratio Glucose Calcium Iron 10 L TIBC 119 L Iron Saturation 8.4 L Ferritin 1393 H Lactate Dehydrogenase B-Natriuretic Peptide Total Protein Globulin Albumin/Globulin Ratio Vitamin B12 276 Vitamin D 25-Hydroxy 18.3 L Fluid pH Fluid Glucose Fluid Total Protein Fluid LDH Synovial Glucose Miscellaneous Test Blood Type Antibody Screen Crossmatch 01/17/18 01/17/18 01/17/18 07:00 09:57 15:00 WBC RBC Hgb 9.1 L Hct 29.5 L MCV MCH MCHC RDW RDW Differential Plt Count MPV Immature Gran % (Auto) Neut % (Auto) Lymph % (Auto) Rolette % (Auto) Eos % (Auto) Baso % (Auto) Absolute Neuts (auto) Absolute Lymphs (auto) Total Counted Sodium Potassium Chloride Carbon Dioxide Anion Gap BUN Creatinine Estim Creat Clear Calc Est GFR (MDRD) Af Amer Est GFR (MDRD) Non-Af BUN/Creatinine Ratio Glucose Calcium Iron TIBC Iron Saturation Ferritin Lactate Dehydrogenase B-Natriuretic Peptide 198.3 H Total Protein Globulin Albumin/Globulin Ratio Vitamin B12 Vitamin D 25-Hydroxy Fluid pH Fluid Glucose Fluid Total Protein Fluid LDH Synovial Glucose Miscellaneous Test Blood Type B POSITIVE Antibody Screen NEGATIVE Crossmatch See Detail 01/17/18 01/17/18 01/17/18 16:15 16:15 16:15 WBC RBC Hgb Hct MCV MCH MCHC RDW RDW Differential Plt Count MPV Immature Gran % (Auto) Neut % (Auto) Lymph % (Auto) Rolette % (Auto) Eos % (Auto) Baso % (Auto) Absolute Neuts (auto) Absolute Lymphs (auto) Total Counted Sodium Potassium Chloride Carbon Dioxide Anion Gap BUN Creatinine Estim Creat Clear Calc Est GFR (MDRD) Af Amer Est GFR (MDRD) Non-Af BUN/Creatinine Ratio Glucose Calcium Iron TIBC Iron Saturation Ferritin Lactate Dehydrogenase B-Natriuretic Peptide Total Protein Globulin Albumin/Globulin Ratio Vitamin B12 Vitamin D 25-Hydroxy Fluid pH Pending Fluid Glucose Cancelled Fluid Total Protein Cancelled Fluid LDH Cancelled Synovial Glucose Miscellaneous Test Blood Type Antibody Screen Crossmatch 01/17/18 01/17/18 01/17/18 16:15 Unknown Unknown WBC RBC Hgb Hct MCV MCH MCHC RDW RDW Differential Plt Count MPV Immature Gran % (Auto) Neut % (Auto) Lymph % (Auto) Rolette % (Auto) Eos % (Auto) Baso % (Auto) Absolute Neuts (auto) Absolute Lymphs (auto) Total Counted Sodium Potassium Chloride Carbon Dioxide Anion Gap BUN Creatinine Estim Creat Clear Calc Est GFR (MDRD) Af Amer Est GFR (MDRD) Non-Af BUN/Creatinine Ratio Glucose Calcium Iron TIBC Iron Saturation Ferritin Lactate Dehydrogenase Cancelled B-Natriuretic Peptide Total Protein Cancelled Globulin Cancelled Albumin/Globulin Ratio Cancelled Vitamin B12 Vitamin D 25-Hydroxy Fluid pH Fluid Glucose Fluid Total Protein Fluid LDH Synovial Glucose Pending Miscellaneous Test Pending Blood Type Antibody Screen Crossmatch 01/18/18 01/18/18 06:42 06:42 WBC 10.3 RBC 3.52 L Hgb 8.8 L Hct 28.8 L MCV 81.8 MCH 25.0 L MCHC 30.6 L RDW 16.2 H RDW Differential 47.2 H Plt Count 369 MPV 9.1 Immature Gran % (Auto) 0.400 Neut % (Auto) 81.8 H Lymph % (Auto) 7.3 L Rolette % (Auto) 9.6 Eos % (Auto) 0.8 Baso % (Auto) 0.1 Absolute Neuts (auto) 8.4 H Absolute Lymphs (auto) 0.75 L Total Counted Not Reportable Sodium 139 Potassium 3.6 Chloride 99 Carbon Dioxide 28.0 Anion Gap 12 BUN 19 H Creatinine 1.41 H Estim Creat Clear Calc 38.10 Est GFR (MDRD) Af Amer 63 Est GFR (MDRD) Non-Af 52 L BUN/Creatinine Ratio 13.5 Glucose 108 H Calcium 8.9 Iron TIBC Iron Saturation Ferritin Lactate Dehydrogenase B-Natriuretic Peptide Total Protein Globulin Albumin/Globulin Ratio Vitamin B12 Vitamin D 25-Hydroxy Fluid pH Fluid Glucose Fluid Total Protein Fluid LDH Synovial Glucose Miscellaneous Test Blood Type Antibody Screen Crossmatch Clinical Impression(s) from Imaging Studies Thoracentesis Ultrasound 01/17/18 02:55 IMPRESSION: Successful ultrasound-guided left thoracentesis. Electronically Signed: Aiden Larry at 17:03 EDT Tel , Service support , Chest CT 01/17/18 10:30 IMPRESSION: Bilateral lower lung consolidation and pleural effusions. There is a large loculated fluid component on the left. Pericardial effusion. Electronically Signed: Genaro Barton MD at 11:45 EDT , Service support , Chest X-Ray 01/17/18 16:13 IMPRESSION: No large gross pneumothorax status post thoracentesis identified. Decreased left pleural effusion/empyema and atelectasis/scarring. No change right lung base heterogeneous opacity, may represent atelectasis, pleural fluid, pneumonia, mass or combination. Electronically Signed: Aiden Larry at 16:58 EDT Tel , Service support , Medical Necessity - Tobacco Use Smoking Status: Former smoker Tobacco Use: Non-smoker Assessment/Plan All Active Problems (Last Reviewed 12/20/17 @ 18:26 by Pam Vail NP-Juvencio) Fall (Acute) History of prostate cancer (Acute) CAP (community acquired pneumonia) (Resolved) Pleural effusion (Acute) RECOMMENDATIONS: 1. Await diagnostic thoracentesis labs 2. Wean oxygen as tolerated 3. Discontinue diuretic therapy 4. Walking oximetry prior to discharge 5. Okay to discharge from my perspective with outpatient follow-up of labs IMPRESSIONS: 1. Acute hypoxic respiratory insufficiency secondary to pleural effusion/COPD Patient does not appear to be in a COPD exacerbation on my assessment. Patient did have a thoracentesis without complication. Unfortunately, unclear if the labs have been sent for analysis. Investigation currently underway by hospitalist. Patient has improved with supplemental oxygen. Likely okay to discharge with outpatient follow-up of laboratory results with nurse practitioner 2 weeks after discharge. 2. Reported COPD Unknown severity at this time. Patient is on bronchodilator therapy at home per his report. Patient is not reporting any significant productive cough or change in sputum to indicate a COPD exacerbation. Likely reasonable to continue with bronchodilators. Agree with holding steroid therapy for now. Patient can resume baseline inhaler medications on discharge 3. Possible congestive heart failure Patient does report occasional lower extremity swelling. Patient does have a left pleural effusion. If thoracentesis is consistent with a transudate of process, evaluation with echocardiogram would be reasonable. Patient has received care at [facility] previously. Would likely benefit from obtaining old records for comparison. Patient did have resolution with diuretic therapy in the past. 4. Prostate cancer/advanced age/iron deficiency/hypertension Complicates care, management, recovery and prognosis. Likely okay to continue with iron supplementation. Monitor for urinary retention. Code Visit Inpatient E&M: 15013 Subs Hosp L2
--- NOTE | 2018-01-18 08:36 | PN_ITS ---
Patient Problems: Active and Suspected Problems (Last Reviewed 12/20/17 @ 18:26 by LUIZ Carvajal) Fall (Acute) Heart failure (Suspected) Subjective: Patient did well overnight. No acute issues have been reported. Patient did have a thoracentesis yesterday without complication. Patient feels that he is back to his baseline. Patient supplemental oxygen has been decreased from 4 L/ min to 2 L/min and patient is tolerating this well. No cough is been reported. - Physical Exam General: Alert, Oriented x3, Cooperative, No apparent distress, - - Speaking in full sentences. HEENT: Atraumatic, PERRLA, EOMI, Normocephalic, - - No scleral icterus or injection noted. Oral: Moist Mucosa, No Gingival or Mucosal Lesions/ Ulcerations Neck: Supple, No JVD, No Nodes, Trachea Midline Lungs: No rhonchi, No wheeze, No rales, Diminished, - - Symmetric expansion. No dullness to percussion. Cardiovascular: Regular rate, Regular Rhythm, Normal S1, Normal S2, No murmurs, No rub noted, No Gallop Abdomen: Bowel Sounds Present, Soft, Non Tender, Non-Distended Extremities: No clubbing, No cyanosis, No edema, Capillary Refill Less than 3 Seconds Skin: No rashes, No breakdown Musculoskeletal: No Tenderness to Palpation of Joints or Extremities Lymphatic: No Cervical, Supraclavicular, or Inguinal Adenopathy Neurological: Cranial nerves II-XII grossly intact, Neuro grossly intact, Motor Exam 5/5 strength throughout Psych/Mental Status: Normal Affect, Appropriate Vital Signs Temp Pulse Resp BP Pulse Ox 36.3 C L 89 16 91/55 L 98 01/18/18 01:49 01/18/18 01:49 01/18/18 01:49 01/18/18 01:49 01/18/18 01:49 Oxygen Flow Rate (L/min) 4 Oxygen Delivery Method Nasal Cannula Weight: 59.5 kg Body Mass Index (BMI) 20.2 Intake and Output for Last 24 Hours 01/16/18 01/17/18 01/18/18 23:59 23:59 23:59 Intake Total 1000 / 1000 415.5 / 415.5 Output Total 3350 / 3350 450 / 450 Balance -2350 / -2350 -34.5 / -34.5 Microbiology Past 72 Hours 01/16/18 23:30 Gram Stain - Final Sputum, Expectorated/Coughed 01/16/18 23:30 Legionella Antigen - Final Urine, Clean Catch 01/16/18 23:30 Streptococcus pneumoniae Antigen (M - Final Urine, Clean Catch Laboratory Tests Past 24 Hrs 01/17/18 01/17/18 01/17/18 07:00 07:00 07:00 WBC RBC Hgb 7.5 L Hct 25.5 L MCV MCH MCHC RDW RDW Differential Plt Count MPV Immature Gran % (Auto) Neut % (Auto) Lymph % (Auto) Gila % (Auto) Eos % (Auto) Baso % (Auto) Absolute Neuts (auto) Absolute Lymphs (auto) Total Counted Sodium Potassium Chloride Carbon Dioxide Anion Gap BUN Creatinine Estim Creat Clear Calc Est GFR (MDRD) Af Amer Est GFR (MDRD) Non-Af BUN/Creatinine Ratio Glucose Calcium Iron 10 L TIBC 119 L Iron Saturation 8.4 L Ferritin 1393 H Lactate Dehydrogenase B-Natriuretic Peptide Total Protein Globulin Albumin/Globulin Ratio Vitamin B12 276 Vitamin D 25-Hydroxy 18.3 L Fluid pH Fluid Glucose Fluid Total Protein Fluid LDH Synovial Glucose Miscellaneous Test Blood Type Antibody Screen Crossmatch 01/17/18 01/17/18 01/17/18 07:00 09:57 15:00 WBC RBC Hgb 9.1 L Hct 29.5 L MCV MCH MCHC RDW RDW Differential Plt Count MPV Immature Gran % (Auto) Neut % (Auto) Lymph % (Auto) Gila % (Auto) Eos % (Auto) Baso % (Auto) Absolute Neuts (auto) Absolute Lymphs (auto) Total Counted Sodium Potassium Chloride Carbon Dioxide Anion Gap BUN Creatinine Estim Creat Clear Calc Est GFR (MDRD) Af Amer Est GFR (MDRD) Non-Af BUN/Creatinine Ratio Glucose Calcium Iron TIBC Iron Saturation Ferritin Lactate Dehydrogenase B-Natriuretic Peptide 198.3 H Total Protein Globulin Albumin/Globulin Ratio Vitamin B12 Vitamin D 25-Hydroxy Fluid pH Fluid Glucose Fluid Total Protein Fluid LDH Synovial Glucose Miscellaneous Test Blood Type B POSITIVE Antibody Screen NEGATIVE Crossmatch See Detail 01/17/18 01/17/18 01/17/18 16:15 16:15 16:15 WBC RBC Hgb Hct MCV MCH MCHC RDW RDW Differential Plt Count MPV Immature Gran % (Auto) Neut % (Auto) Lymph % (Auto) Gila % (Auto) Eos % (Auto) Baso % (Auto) Absolute Neuts (auto) Absolute Lymphs (auto) Total Counted Sodium Potassium Chloride Carbon Dioxide Anion Gap BUN Creatinine Estim Creat Clear Calc Est GFR (MDRD) Af Amer Est GFR (MDRD) Non-Af BUN/Creatinine Ratio Glucose Calcium Iron TIBC Iron Saturation Ferritin Lactate Dehydrogenase B-Natriuretic Peptide Total Protein Globulin Albumin/Globulin Ratio Vitamin B12 Vitamin D 25-Hydroxy Fluid pH Pending Fluid Glucose Cancelled Fluid Total Protein Cancelled Fluid LDH Cancelled Synovial Glucose Miscellaneous Test Blood Type Antibody Screen Crossmatch 01/17/18 01/17/18 01/17/18 16:15 Unknown Unknown WBC RBC Hgb Hct MCV MCH MCHC RDW RDW Differential Plt Count MPV Immature Gran % (Auto) Neut % (Auto) Lymph % (Auto) Gila % (Auto) Eos % (Auto) Baso % (Auto) Absolute Neuts (auto) Absolute Lymphs (auto) Total Counted Sodium Potassium Chloride Carbon Dioxide Anion Gap BUN Creatinine Estim Creat Clear Calc Est GFR (MDRD) Af Amer Est GFR (MDRD) Non-Af BUN/Creatinine Ratio Glucose Calcium Iron TIBC Iron Saturation Ferritin Lactate Dehydrogenase Cancelled B-Natriuretic Peptide Total Protein Cancelled Globulin Cancelled Albumin/Globulin Ratio Cancelled Vitamin B12 Vitamin D 25-Hydroxy Fluid pH Fluid Glucose Fluid Total Protein Fluid LDH Synovial Glucose Pending Miscellaneous Test Pending Blood Type Antibody Screen Crossmatch 01/18/18 01/18/18 06:42 06:42 WBC 10.3 RBC 3.52 L Hgb 8.8 L Hct 28.8 L MCV 81.8 MCH 25.0 L MCHC 30.6 L RDW 16.2 H RDW Differential 47.2 H Plt Count 369 MPV 9.1 Immature Gran % (Auto) 0.400 Neut % (Auto) 81.8 H Lymph % (Auto) 7.3 L Gila % (Auto) 9.6 Eos % (Auto) 0.8 Baso % (Auto) 0.1 Absolute Neuts (auto) 8.4 H Absolute Lymphs (auto) 0.75 L Total Counted Not Reportable Sodium 139 Potassium 3.6 Chloride 99 Carbon Dioxide 28.0 Anion Gap 12 BUN 19 H Creatinine 1.41 H Estim Creat Clear Calc 38.10 Est GFR (MDRD) Af Amer 63 Est GFR (MDRD) Non-Af 52 L BUN/Creatinine Ratio 13.5 Glucose 108 H Calcium 8.9 Iron TIBC Iron Saturation Ferritin Lactate Dehydrogenase B-Natriuretic Peptide Total Protein Globulin Albumin/Globulin Ratio Vitamin B12 Vitamin D 25-Hydroxy Fluid pH Fluid Glucose Fluid Total Protein Fluid LDH Synovial Glucose Miscellaneous Test Blood Type Antibody Screen Crossmatch Clinical Impression(s) from Imaging Studies Thoracentesis Ultrasound 01/17/18 02:55 IMPRESSION: Successful ultrasound-guided left thoracentesis. Electronically Signed: Aiden Larry at 17:03 EDT Tel , Service support , Chest CT 01/17/18 10:30 IMPRESSION: Bilateral lower lung consolidation and pleural effusions. There is a large loculated fluid component on the left. Pericardial effusion. Electronically Signed: Genaro Barton MD at 11:45 EDT , Service support , Chest X-Ray 01/17/18 16:13 IMPRESSION: No large gross pneumothorax status post thoracentesis identified. Decreased left pleural effusion/empyema and atelectasis/scarring. No change right lung base heterogeneous opacity, may represent atelectasis, pleural fluid, pneumonia, mass or combination. Electronically Signed: Aiden Larry at 16:58 EDT Tel , Service support , Medical Necessity - Tobacco Use Smoking Status: Former smoker Tobacco Use: Non-smoker Assessment/Plan All Active Problems (Last Reviewed 12/20/17 @ 18:26 by Pam Vail NP-Juvencio) Fall (Acute) History of prostate cancer (Acute) CAP (community acquired pneumonia) (Resolved) Pleural effusion (Acute) RECOMMENDATIONS: 1. Await diagnostic thoracentesis labs 2. Wean oxygen as tolerated 3. Discontinue diuretic therapy 4. Walking oximetry prior to discharge 5. Okay to discharge from my perspective with outpatient follow-up of labs IMPRESSIONS: 1. Acute hypoxic respiratory insufficiency secondary to pleural effusion/ COPD Patient does not appear to be in a COPD exacerbation on my assessment. Patient did have a thoracentesis without complication. Unfortunately, unclear if the labs have been sent for analysis. Investigation currently underway by hospitalist. Patient has improved with supplemental oxygen. Likely okay to discharge with outpatient follow-up of laboratory results with nurse practitioner 2 weeks after discharge. 2. Reported COPD Unknown severity at this time. Patient is on bronchodilator therapy at home per his report. Patient is not reporting any significant productive cough or change in sputum to indicate a COPD exacerbation. Likely reasonable to continue with bronchodilators. Agree with holding steroid therapy for now. Patient can resume baseline inhaler medications on discharge 3. Possible congestive heart failure Patient does report occasional lower extremity swelling. Patient does have a left pleural effusion. If thoracentesis is consistent with a transudate of process, evaluation with echocardiogram would be reasonable. Patient has received care at [facility] previously. Would likely benefit from obtaining old records for comparison. Patient did have resolution with diuretic therapy in the past. 4. Prostate cancer/advanced age/iron deficiency/hypertension Complicates care, management, recovery and prognosis. Likely okay to continue with iron supplementation. Monitor for urinary retention. Code Visit Inpatient E&M: 01444 Subs Hosp L2
[2018-01-18] MEDS: Senna/Docusate Sodium 1 Tablet PO ×2 (08:57→21:38)
[2018-01-18] MEDS: Polyethylene Glycol 3350 17 GM PACKET PO (08:57)
[2018-01-18] MEDS: Metoprolol Tartrate 50 MG Tablet PO (08:58)
[2018-01-18] MEDS: Heparin Injection (Vial) 5,000 UNIT/ML VIAL 5000 UNIT SC ×2 (08:58→21:38)
[2018-01-18] MEDS: guaiFENesin 1,200 MG Tablet 1200 MG PO ×2 (08:58→21:38)
[2018-01-18] MEDS: amLODIPine 10 MG Tablet PO (08:58)
[2018-01-18] MEDS: 0.9% NaCl Peripheral Flush Adult/Peds IV (08:59)
[2018-01-18 09:06] LABS: Cytology, Body Fluid / CSF SEE PATHOLOGY REPORT
[2018-01-18 09:33] LABS: Body Fluid Mononuclear WBC # 2.166 10^3/uL; Body Fluid Mononuclear WBC % 20.7 %; Body Fluid Polynuclear WBC # 8.289 10^3/uL; Body Fluid Polynuclear WBC % 79.3 %
[2018-01-18 09:37] LABS: Body Fluid Total Cells Counted 10.502 10^3/ul
[2018-01-18 10:38] LABS: Appearance/Body Fluid TURBID; Auto B Fluid Analyzer BKGD Ct COUNTS W/IN LIMITS (W/IN LIMITS); Body Fluid QC Type(s) BF1Q; Color/Body Fluid YELLOW; Source- Body Fluid THORACENTESIS
[2018-01-18 12:09] LABS: LDH,Body Fluid 1248 Units/l (Not Establ.)
[2018-01-18 12:10] LABS: Glucose, Body Fluid 11 mg/dL (40-70)
--- NOTE | 2018-01-18 12:47 | RAD_ITS ---
STUDY: X-RAY CHEST REASON FOR EXAM: Male, 77 years old. Shortness of breath. TECHNIQUE: Single frontal view of the chest. COMPARISON: January 17, 2018 FINDINGS: There is low volume inspiration with bibasilar atelectasis, left greater than right. There is a patchy opacity at the right base which is increased in density. There is a left pleural effusion which has slightly increased from prior study. There is stable cardiomegaly. Normal mediastinum and gay. Normal visualized pulmonary arteries. Normal visualized aortic arch and descending thoracic aorta. Normal visualized thoracic spine. Normal visualized ribs, clavicles, and shoulders. There is no demonstrated abnormality of the visualized soft tissue structures of the upper abdomen. RAD/Chest 1 View IMPRESSION: Low volume inspiration with bibasilar atelectasis, left greater than right. Increased density of right lower lobe opacity. Slight increase in size of left pleural effusion. Electronically Signed: Chaz Ellis MD at 17:55 EDT , Service support ,
--- NOTE | 2018-01-18 13:48 | CASEMGMT ---
SOCIAL WORK: Referral received from unit nurse this date that patient's is at his bedside and would like to speak to a psychiatric social worker supervisor about him going to [facility] when he is ready for discharge. SW met with patient and , Lauren, in his room; introduced self and role at [facility] on weekend rotation. shared that patient fell prior to admission, has been losing his balance and has been weak. She feels that he needs a short stay somewhere and prefers [facility] or [facility]; patient voiced agreement as well. SW explained that will have to check to make sure facilities are in-network and that a pre-cert is required by insurance which cannot be started until Saturday. They voiced understanding and agreement. Further needs or questions denied at this time. SW explained that primary psychiatric social worker supervisor will follow up with them on Saturday. PLAN: SW will follow through with referral process to [facility] and/or [facility] SNF on Saturday; pre-cert is required. Follow up with , Lauren, accordingly at [phone]. Angie RICO,[facility]
--- NOTE | 2018-01-18 17:12 | PCM.PROGNOTE ---
Patient Problems: Active and Suspected Problems (Last Reviewed 12/20/17 @ 18:26 by LUIZ Carvajal) Fall (Acute) Heart failure (Suspected) Subjective: Patient was seen and examined today, he appears comfortable on 2 L of oxygen, patient was very weak during physical therapy evaluation, the contacted oncology social work and requests that he go to a longterm facility for rehab rather than come home directly from the hospital. Patient's insurance carrier will have to be contacted and this will not happen until Saturday. I reviewed pulmonary medicine's note on the patient, his antibiotics will be discontinued today - Physical Exam General: Alert, Oriented x3, Cooperative, No apparent distress, Well developed, - - Patient appears weak and frail HEENT: Atraumatic, PERRLA, EOMI, Normocephalic Oral: Moist Mucosa Neck: Supple, No JVD, No Nuchal Rigidity, Trachea Midline, Thyroid Normal Size and Texture Lungs: No rhonchi, No wheeze, Diminished - Diminished breath sounds at the left base, Rales - Fine rales at the left base noted Cardiovascular: Regular rate, Regular Rhythm, Normal S1, Normal S2, No murmurs, No Ectopic Activity, PMI Normal, No rub noted, No Gallop Abdomen: Bowel Sounds Present, Soft, Non Tender, Non-Distended, No hernias noted Extremities: No clubbing, No cyanosis, No edema, Capillary Refill Less than 3 Seconds Skin: No rashes, No breakdown Musculoskeletal: Cachexia, Muscle Wasting Neurological: Cranial nerves II-XII grossly intact, Neuro grossly intact, Sensory exam intact to light touch and pain Psych/Mental Status: Normal Affect, Appropriate, Alert and oriented to time, place, person, mood and affect Vital Signs Temp Pulse Resp BP Pulse Ox 97.7 F L 79 18 94/49 L 96 01/18/18 13:50 01/18/18 14:27 01/18/18 14:27 01/18/18 13:50 01/18/18 13:50 Oxygen Flow Rate (L/min) 2 Oxygen Delivery Method Nasal Cannula Weight: 59.5 kg Body Mass Index (BMI) 20.2 Intake and Output for Last 24 Hours 01/16/18 01/17/18 01/18/18 23:59 23:59 23:59 Intake Total 1000 / 1000 690.5 / 690.5 Output Total 3350 / 3350 575 / 575 Balance -2350 / -2350 115.5 / 115.5 Microbiology Past 72 Hours 01/16/18 23:30 Gram Stain - Final Sputum, Expectorated/Coughed Respiratory Culture - Preliminary Appears to be normal respiratory portia. Further studies to follow. 01/16/18 23:30 Legionella Antigen - Final Urine, Clean Catch 01/16/18 23:30 Streptococcus pneumoniae Antigen (M - Final Urine, Clean Catch Laboratory Tests Past 24 Hrs 01/17/18 01/17/18 01/17/18 16:15 16:15 16:15 WBC RBC Hgb Hct MCV MCH MCHC RDW RDW Differential Plt Count MPV Immature Gran % (Auto) Neut % (Auto) Lymph % (Auto) [place] % (Auto) Eos % (Auto) Baso % (Auto) Absolute Neuts (auto) Absolute Lymphs (auto) Total Counted Sodium Potassium Chloride Carbon Dioxide Anion Gap BUN Creatinine Estim Creat Clear Calc Est GFR (MDRD) Af Amer Est GFR (MDRD) Non-Af BUN/Creatinine Ratio Glucose Calcium Lactate Dehydrogenase Cancelled Total Protein Cancelled Globulin Cancelled Albumin/Globulin Ratio Cancelled Fluid Source Fluid Color Fluid Appearance Fluid WBC Fluid RBC Fluid Tot Cell Count Fld Polynuclear WBCs # Fld Polynuclear WBCs % Fluid Mononuclear WBCs Fld Mononuclear WBCs % Fluid Neutrophils Fluid Lymphocytes Fluid Monocytes Fl Pathologist Comment Fluid Glucose 11 L* Fluid Total Protein 2.0 Fluid LDH 1248 Fluid Comment 2 Synovial Glucose Miscellaneous Cytology Miscellaneous Test 01/17/18 01/17/18 01/17/18 16:15 16:15 Unknown WBC RBC Hgb Hct MCV MCH MCHC RDW RDW Differential Plt Count MPV Immature Gran % (Auto) Neut % (Auto) Lymph % (Auto) [place] % (Auto) Eos % (Auto) Baso % (Auto) Absolute Neuts (auto) Absolute Lymphs (auto) Total Counted Sodium Potassium Chloride Carbon Dioxide Anion Gap BUN Creatinine Estim Creat Clear Calc Est GFR (MDRD) Af Amer Est GFR (MDRD) Non-Af BUN/Creatinine Ratio Glucose Calcium Lactate Dehydrogenase Total Protein Globulin Albumin/Globulin Ratio Fluid Source THORACENTESIS Fluid Color YELLOW Fluid Appearance TURBID Fluid WBC 10.432 Fluid RBC 1.13666 Fluid Tot Cell Count 10.502 Fld Polynuclear WBCs # 8.289 Fld Polynuclear WBCs % 79.3 Fluid Mononuclear WBCs 2.166 Fld Mononuclear WBCs % 20.7 Fluid Neutrophils 74 Fluid Lymphocytes 13 Fluid Monocytes 13 Fl Pathologist Comment May follow Fluid Glucose Fluid Total Protein Fluid LDH Fluid Comment 2 SEE COMMENT Synovial Glucose Cancelled Miscellaneous Cytology Pending Miscellaneous Test 01/17/18 01/18/18 01/18/18 Unknown 06:42 06:42 WBC 10.3 RBC 3.52 L Hgb 8.8 L Hct 28.8 L MCV 81.8 MCH 25.0 L MCHC 30.6 L RDW 16.2 H RDW Differential 47.2 H Plt Count 369 MPV 9.1 Immature Gran % (Auto) 0.400 Neut % (Auto) 81.8 H Lymph % (Auto) 7.3 L [place] % (Auto) 9.6 Eos % (Auto) 0.8 Baso % (Auto) 0.1 Absolute Neuts (auto) 8.4 H Absolute Lymphs (auto) 0.75 L Total Counted Not Reportable Sodium 139 Potassium 3.6 Chloride 99 Carbon Dioxide 28.0 Anion Gap 12 BUN 19 H Creatinine 1.41 H Estim Creat Clear Calc 38.10 Est GFR (MDRD) Af Amer 63 Est GFR (MDRD) Non-Af 52 L BUN/Creatinine Ratio 13.5 Glucose 108 H Calcium 8.9 Lactate Dehydrogenase Total Protein Globulin Albumin/Globulin Ratio Fluid Source Fluid Color Fluid Appearance Fluid WBC Fluid RBC Fluid Tot Cell Count Fld Polynuclear WBCs # Fld Polynuclear WBCs % Fluid Mononuclear WBCs Fld Mononuclear WBCs % Fluid Neutrophils Fluid Lymphocytes Fluid Monocytes Fl Pathologist Comment Fluid Glucose Fluid Total Protein Fluid LDH Fluid Comment 2 Synovial Glucose Miscellaneous Cytology Miscellaneous Test Cancelled Medical Necessity - Tobacco Use Smoking Status: Former smoker Tobacco Use: Non-smoker Assessment/Plan All Active Problems (Last Reviewed 12/20/17 @ 18:26 by Pam Vail, SHAYLEE-C) Fall (Acute) History of prostate cancer (Acute) CAP (community acquired pneumonia) (Resolved) Pleural effusion (Acute) #1 hypoxia on a backdrop of chronic hypoxic respiratory failure due to left pleural effusion and an overlay of COPD-patient is now on his baseline O2 requirement, again patient's states that she does not feel the patient should be discharged and once the patient to go to a longterm facility if possible. We will work with insurance starting Arnav regarding this #2 chronic obstructive pulmonary disease #3 Pulmonary hypertension #4 hypertension #5 generalized debility secondary to multiple medical problems including severe COPD and pulmonary hypertension-continue PT and OT #6 acute left pleural effusion Code Visit Inpatient E&M: 81135 Subs Hosp L2
--- NOTE | 2018-01-18 17:15 | PN_ITS ---
Patient Problems: Active and Suspected Problems (Last Reviewed 12/20/17 @ 18:26 by LUIZ Carvajal) Fall (Acute) Heart failure (Suspected) Subjective: Patient was seen and examined today, he appears comfortable on 2 L of oxygen, patient was very weak during physical therapy evaluation, the contacted drug abuse social worker and requests that he go to a penitentiary facility for rehab rather than come home directly from the hospital. Patient's insurance carrier will have to be contacted and this will not happen until Saturday. I reviewed pulmonary medicine's note on the patient, his antibiotics will be discontinued today - Physical Exam General: Alert, Oriented x3, Cooperative, No apparent distress, Well developed, - - Patient appears weak and frail HEENT: Atraumatic, PERRLA, EOMI, Normocephalic Oral: Moist Mucosa Neck: Supple, No JVD, No Nuchal Rigidity, Trachea Midline, Thyroid Normal Size and Texture Lungs: No rhonchi, No wheeze, Diminished - Diminished breath sounds at the left base, Rales - Fine rales at the left base noted Cardiovascular: Regular rate, Regular Rhythm, Normal S1, Normal S2, No murmurs, No Ectopic Activity, PMI Normal, No rub noted, No Gallop Abdomen: Bowel Sounds Present, Soft, Non Tender, Non-Distended, No hernias noted Extremities: No clubbing, No cyanosis, No edema, Capillary Refill Less than 3 Seconds Skin: No rashes, No breakdown Musculoskeletal: Cachexia, Muscle Wasting Neurological: Cranial nerves II-XII grossly intact, Neuro grossly intact, Sensory exam intact to light touch and pain Psych/Mental Status: Normal Affect, Appropriate, Alert and oriented to time, place, person, mood and affect Vital Signs Temp Pulse Resp BP Pulse Ox 97.7 F L 79 18 94/49 L 96 01/18/18 13:50 01/18/18 14:27 01/18/18 14:27 01/18/18 13:50 01/18/18 13:50 Oxygen Flow Rate (L/min) 2 Oxygen Delivery Method Nasal Cannula Weight: 59.5 kg Body Mass Index (BMI) 20.2 Intake and Output for Last 24 Hours 01/16/18 01/17/18 01/18/18 23:59 23:59 23:59 Intake Total 1000 / 1000 690.5 / 690.5 Output Total 3350 / 3350 575 / 575 Balance -2350 / -2350 115.5 / 115.5 Microbiology Past 72 Hours 01/16/18 23:30 Gram Stain - Final Sputum, Expectorated/Coughed Respiratory Culture - Preliminary Appears to be normal respiratory portia. Further studies to follow. 01/16/18 23:30 Legionella Antigen - Final Urine, Clean Catch 01/16/18 23:30 Streptococcus pneumoniae Antigen (M - Final Urine, Clean Catch Laboratory Tests Past 24 Hrs 01/17/18 01/17/18 01/17/18 16:15 16:15 16:15 WBC RBC Hgb Hct MCV MCH MCHC RDW RDW Differential Plt Count MPV Immature Gran % (Auto) Neut % (Auto) Lymph % (Auto) [place] % (Auto) Eos % (Auto) Baso % (Auto) Absolute Neuts (auto) Absolute Lymphs (auto) Total Counted Sodium Potassium Chloride Carbon Dioxide Anion Gap BUN Creatinine Estim Creat Clear Calc Est GFR (MDRD) Af Amer Est GFR (MDRD) Non-Af BUN/Creatinine Ratio Glucose Calcium Lactate Dehydrogenase Cancelled Total Protein Cancelled Globulin Cancelled Albumin/Globulin Ratio Cancelled Fluid Source Fluid Color Fluid Appearance Fluid WBC Fluid RBC Fluid Tot Cell Count Fld Polynuclear WBCs # Fld Polynuclear WBCs % Fluid Mononuclear WBCs Fld Mononuclear WBCs % Fluid Neutrophils Fluid Lymphocytes Fluid Monocytes Fl Pathologist Comment Fluid Glucose 11 L* Fluid Total Protein 2.0 Fluid LDH 1248 Fluid Comment 2 Synovial Glucose Miscellaneous Cytology Miscellaneous Test 01/17/18 01/17/18 01/17/18 16:15 16:15 Unknown WBC RBC Hgb Hct MCV MCH MCHC RDW RDW Differential Plt Count MPV Immature Gran % (Auto) Neut % (Auto) Lymph % (Auto) [place] % (Auto) Eos % (Auto) Baso % (Auto) Absolute Neuts (auto) Absolute Lymphs (auto) Total Counted Sodium Potassium Chloride Carbon Dioxide Anion Gap BUN Creatinine Estim Creat Clear Calc Est GFR (MDRD) Af Amer Est GFR (MDRD) Non-Af BUN/Creatinine Ratio Glucose Calcium Lactate Dehydrogenase Total Protein Globulin Albumin/Globulin Ratio Fluid Source THORACENTESIS Fluid Color YELLOW Fluid Appearance TURBID Fluid WBC 10.432 Fluid RBC 1.09987 Fluid Tot Cell Count 10.502 Fld Polynuclear WBCs # 8.289 Fld Polynuclear WBCs % 79.3 Fluid Mononuclear WBCs 2.166 Fld Mononuclear WBCs % 20.7 Fluid Neutrophils 74 Fluid Lymphocytes 13 Fluid Monocytes 13 Fl Pathologist Comment May follow Fluid Glucose Fluid Total Protein Fluid LDH Fluid Comment 2 SEE COMMENT Synovial Glucose Cancelled Miscellaneous Cytology Pending Miscellaneous Test 01/17/18 01/18/18 01/18/18 Unknown 06:42 06:42 WBC 10.3 RBC 3.52 L Hgb 8.8 L Hct 28.8 L MCV 81.8 MCH 25.0 L MCHC 30.6 L RDW 16.2 H RDW Differential 47.2 H Plt Count 369 MPV 9.1 Immature Gran % (Auto) 0.400 Neut % (Auto) 81.8 H Lymph % (Auto) 7.3 L [place] % (Auto) 9.6 Eos % (Auto) 0.8 Baso % (Auto) 0.1 Absolute Neuts (auto) 8.4 H Absolute Lymphs (auto) 0.75 L Total Counted Not Reportable Sodium 139 Potassium 3.6 Chloride 99 Carbon Dioxide 28.0 Anion Gap 12 BUN 19 H Creatinine 1.41 H Estim Creat Clear Calc 38.10 Est GFR (MDRD) Af Amer 63 Est GFR (MDRD) Non-Af 52 L BUN/Creatinine Ratio 13.5 Glucose 108 H Calcium 8.9 Lactate Dehydrogenase Total Protein Globulin Albumin/Globulin Ratio Fluid Source Fluid Color Fluid Appearance Fluid WBC Fluid RBC Fluid Tot Cell Count Fld Polynuclear WBCs # Fld Polynuclear WBCs % Fluid Mononuclear WBCs Fld Mononuclear WBCs % Fluid Neutrophils Fluid Lymphocytes Fluid Monocytes Fl Pathologist Comment Fluid Glucose Fluid Total Protein Fluid LDH Fluid Comment 2 Synovial Glucose Miscellaneous Cytology Miscellaneous Test Cancelled Medical Necessity - Tobacco Use Smoking Status: Former smoker Tobacco Use: Non-smoker Assessment/Plan All Active Problems (Last Reviewed 12/20/17 @ 18:26 by Pam Vail, SHAYLEE-C) Fall (Acute) History of prostate cancer (Acute) CAP (community acquired pneumonia) (Resolved) Pleural effusion (Acute) #1 hypoxia on a backdrop of chronic hypoxic respiratory failure due to left pleural effusion and an overlay of COPD-patient is now on his baseline O2 requirement, again patient's states that she does not feel the patient should be discharged and once the patient to go to a penitentiary facility if possible. We will work with insurance starting Arnav regarding this #2 chronic obstructive pulmonary disease #3 Pulmonary hypertension #4 hypertension #5 generalized debility secondary to multiple medical problems including severe COPD and pulmonary hypertension-continue PT and OT #6 acute left pleural effusion Code Visit Inpatient E&M: 69905 Subs Hosp L2
[2018-01-18] MEDS: Zolpidem Tartrate 5 MG Tablet PO (21:38)
[2018-01-18] MEDS: Doxazosin 1 MG Tablet 2 MG PO (21:39)
[2018-01-18] MEDS: QUEtiapine 25 MG Tablet PO (21:42)
[2018-01-19] VITALS (9 sets, daily range): BP systolic 100–112; BP diastolic 52–57; PULSE 87–109; RESP 16–20; TEMP 36.6–37.2; O2SAT 2–96
[2018-01-19] MEDS: Ipratropium 0.5 MG/2.5 ML SOLUTION INHALATION ×3 (06:46→20:21)
[2018-01-19 07:01] LABS: Absolute Lymphocyte Count 0.85 X10^3/ul (0.83-4.51); Absolute Neutrophil Count 6.1 X10^3/uL (2.0-7.7); Basophil# 0.02 X10^3/uL; Basophil% 0.3 % (0-1); Eosinophil# 0.17 X10^3/uL; Eosinophils% 2.1 % (0-5); Hematocrit 28.4 % (40-54); Hemoglobin 8.7 g/dl (13.0-16.5); Lymphocyte # 0.85 X10^3/ul (4.0); Lymphocyte % 10.7 % (19-41); Mean Corp Hgb Conc 30.6 g/gl (32-36); Mean Corpuscular Hgb 25.1 pg (27.0-32.0); Mean Corpuscular Volume 81.8 fL (80-94); Mean Platelet Vol. 8.9 fl (6.2-12.0); Monocyte# 0.71 X10^3/uL; Neutrophil # 6.13 X10^3/uL (2.7-7.7); Neutrophil % 77.4 % (47-70); Platelet Count 387 K/mm3 (150-450); RBC Distribution Width CV 16.4 % (11.6-14.6); RBC Distribution Width SD 47.2 fl (35.1-43.9); Red Blood Count 3.47 M/mm3 (4.6-6.2); White Blood Count 7.9 K/mm3 (4.4-11.0)
[2018-01-19 07:03] LABS: POSITIVE COUNT NO; POSITIVE DIFFERENTIAL NO; POSITIVE MORPHOLOGY NO
[2018-01-19 07:40] LABS: Anion Gap 13 (5-15); BUN 23 mg/dL (7-18); BUN/Creat Ratio 19.8 RATIO (10-20); Calcium,Total 8.8 mg/dL (8.5-10.1); Chloride 100 mmol/L (98-107); Creatinine, Serum 1.16 mg/dL (0.70-1.30); EST Glomerular Filtration Rate 65 mL/min (>60); Est Glom Filt Rate - Afr Amer 79 mL/min (>60); Estimated Creatinine Clearance 45.92 ml/min; Glucose 94 mg/dL (74-106); Potassium 3.4 mmol/L (3.5-5.1); Sodium Level 141 mmol/L (136-145)
--- NOTE | 2018-01-19 08:04 | PCM.PROGNOTE ---
Patient Problems: Active and Suspected Problems (Last Reviewed 12/20/17 @ 18:26 by LUIZ Carvajal) Fall (Acute) Heart failure (Suspected) Subjective: Patient did well overnight. No acute issues were reported. Patient has remained on 2 L nasal cannula. No fevers have been reported. Patient with no complaints this morning. - Physical Exam General: Alert, Cooperative, Disoriented, - - Appears stated age. HEENT: Atraumatic, PERRLA, EOMI, Normocephalic, - - No scleral icterus or injection noted. Oral: Moist Mucosa, No Gingival or Mucosal Lesions/ Ulcerations Neck: Supple, No JVD, No Nodes, Trachea Midline Lungs: No rhonchi, No wheeze, No rales, Diminished, - - Symmetric expansion. No dullness to percussion. Thoracentesis site is clean, dry and intact. Cardiovascular: Regular rate, Regular Rhythm, Normal S1, Normal S2, No murmurs, No rub noted, No Gallop Abdomen: Bowel Sounds Present, Soft, Non Tender, Non-Distended Extremities: No clubbing, No cyanosis, No edema, Capillary Refill Less than 3 Seconds Skin: No rashes, No breakdown Musculoskeletal: No Tenderness to Palpation of Joints or Extremities Lymphatic: No Cervical, Supraclavicular, or Inguinal Adenopathy Neurological: Cranial nerves II-XII grossly intact, Neuro grossly intact, Motor Exam 5/5 strength throughout Psych/Mental Status: Normal Affect, Appropriate Vital Signs Temp Pulse Resp BP Pulse Ox 36.9 C 106 H 16 112/57 L 95 01/19/18 02:00 01/19/18 06:47 01/19/18 06:47 01/19/18 02:00 01/19/18 06:47 Oxygen Flow Rate (L/min) 3 Oxygen Delivery Method Nasal Cannula Weight: 59 kg Body Mass Index (BMI) 20.2 Intake and Output for Last 24 Hours 01/17/18 01/18/18 01/19/18 23:59 23:59 23:59 Intake Total 1000 / 1000 690.5 / 690.5 120 / 120 Output Total 3350 / 3350 775 / 775 500 / 500 Balance -2350 / -2350 -84.5 / -84.5 -380 / -380 Microbiology Past 72 Hours 01/16/18 23:30 Gram Stain - Final Sputum, Expectorated/Coughed Respiratory Culture - Preliminary Appears to be normal respiratory portia. Further studies to follow. 01/16/18 23:30 Legionella Antigen - Final Urine, Clean Catch 01/16/18 23:30 Streptococcus pneumoniae Antigen (M - Final Urine, Clean Catch Laboratory Tests Past 24 Hrs 01/17/18 01/17/18 01/17/18 16:15 16:15 16:15 WBC RBC Hgb Hct MCV MCH MCHC RDW RDW Differential Plt Count MPV Immature Gran % (Auto) Neut % (Auto) Lymph % (Auto) [place] % (Auto) Eos % (Auto) Baso % (Auto) Absolute Neuts (auto) Absolute Lymphs (auto) Total Counted Sodium Potassium Chloride Carbon Dioxide Anion Gap BUN Creatinine Estim Creat Clear Calc Est GFR (MDRD) Af Amer Est GFR (MDRD) Non-Af BUN/Creatinine Ratio Glucose Calcium Fluid Source THORACENTESIS Fluid Color YELLOW Fluid Appearance TURBID Fluid WBC 10.432 Fluid RBC 1.89316 Fluid Tot Cell Count 10.502 Fld Polynuclear WBCs # 8.289 Fld Polynuclear WBCs % 79.3 Fluid Mononuclear WBCs 2.166 Fld Mononuclear WBCs % 20.7 Fluid Neutrophils 74 Fluid Lymphocytes 13 Fluid Monocytes 13 Fl Pathologist Comment May follow Fluid Glucose 11 L* Fluid Total Protein 2.0 Fluid LDH 1248 Fluid Comment 2 SEE COMMENT Synovial Glucose Miscellaneous Cytology Miscellaneous Test 01/17/18 01/17/18 01/17/18 16:15 Unknown Unknown WBC RBC Hgb Hct MCV MCH MCHC RDW RDW Differential Plt Count MPV Immature Gran % (Auto) Neut % (Auto) Lymph % (Auto) [place] % (Auto) Eos % (Auto) Baso % (Auto) Absolute Neuts (auto) Absolute Lymphs (auto) Total Counted Sodium Potassium Chloride Carbon Dioxide Anion Gap BUN Creatinine Estim Creat Clear Calc Est GFR (MDRD) Af Amer Est GFR (MDRD) Non-Af BUN/Creatinine Ratio Glucose Calcium Fluid Source Fluid Color Fluid Appearance Fluid WBC Fluid RBC Fluid Tot Cell Count Fld Polynuclear WBCs # Fld Polynuclear WBCs % Fluid Mononuclear WBCs Fld Mononuclear WBCs % Fluid Neutrophils Fluid Lymphocytes Fluid Monocytes Fl Pathologist Comment Fluid Glucose Fluid Total Protein Fluid LDH Fluid Comment 2 Synovial Glucose Cancelled Miscellaneous Cytology Pending Miscellaneous Test Cancelled 01/19/18 01/19/18 06:56 06:56 WBC 7.9 RBC 3.47 L Hgb 8.7 L Hct 28.4 L MCV 81.8 MCH 25.1 L MCHC 30.6 L RDW 16.4 H RDW Differential 47.2 H Plt Count 387 MPV 8.9 Immature Gran % (Auto) 0.500 Neut % (Auto) 77.4 H Lymph % (Auto) 10.7 L [place] % (Auto) 9.0 Eos % (Auto) 2.1 Baso % (Auto) 0.3 Absolute Neuts (auto) 6.1 Absolute Lymphs (auto) 0.85 Total Counted Not Reportable Sodium 141 Potassium 3.4 L Chloride 100 Carbon Dioxide 28.0 Anion Gap 13 BUN 23 H Creatinine 1.16 Estim Creat Clear Calc 45.92 Est GFR (MDRD) Af Amer 79 Est GFR (MDRD) Non-Af 65 BUN/Creatinine Ratio 19.8 Glucose 94 Calcium 8.8 Fluid Source Fluid Color Fluid Appearance Fluid WBC Fluid RBC Fluid Tot Cell Count Fld Polynuclear WBCs # Fld Polynuclear WBCs % Fluid Mononuclear WBCs Fld Mononuclear WBCs % Fluid Neutrophils Fluid Lymphocytes Fluid Monocytes Fl Pathologist Comment Fluid Glucose Fluid Total Protein Fluid LDH Fluid Comment 2 Synovial Glucose Miscellaneous Cytology Miscellaneous Test Clinical Impression(s) from Imaging Studies Chest X-Ray 01/18/18 12:47 IMPRESSION: Low volume inspiration with bibasilar atelectasis, left greater than right. Increased density of right lower lobe opacity. Slight increase in size of left pleural effusion. Electronically Signed: Chaz Ellis MD at 17:55 EDT , Service support , Medical Necessity - Tobacco Use Smoking Status: Former smoker Tobacco Use: Non-smoker Assessment/Plan All Active Problems (Last Reviewed 12/20/17 @ 18:26 by Pam Vail NP-C) Fall (Acute) History of prostate cancer (Acute) CAP (community acquired pneumonia) (Resolved) Pleural effusion (Acute) RECOMMENDATIONS: 1. Increase activity as tolerated 2. Wean oxygen as tolerated 3. Consider rheumatologic workup 4. Walking oximetry prior to discharge 5. Repeat chest x-ray in 2-4 weeks IMPRESSIONS: 1. Acute hypoxic respiratory insufficiency secondary to pleural effusion/COPD Patient does not appear to be in a COPD exacerbation on my assessment. Patient did have a thoracentesis without complication. Labs are consistent with an exudative effusion with low glucose. Unfortunately, pH is not available for review. Differential diagnosis for a neutrophilic exudate would include empyema versus rheumatoid arthritis. However, patient has not had any fever or leukocytosis throughout the hospitalization. Anti-CCP and rheumatoid factor may be helpful as an outpatient. 2. Reported COPD Unknown severity at this time. Patient is on bronchodilator therapy at home per his report. Patient is not reporting any significant productive cough or change in sputum to indicate a COPD exacerbation. Likely reasonable to continue with bronchodilators. Agree with holding steroid therapy for now. Patient can resume baseline inhaler medications on discharge 3. Possible congestive heart failure Patient does report occasional lower extremity swelling. Patient does have a left pleural effusion. Exudate is noted on thoracentesis. Patient has received care at [facility] previously. Would likely benefit from obtaining old records for comparison. Renal function improving after cessation of diuretic therapy. 4. Prostate cancer/advanced age/iron deficiency/hypertension Complicates care, management, recovery and prognosis. Likely okay to continue with iron supplementation. Monitor for urinary retention. Code Visit Inpatient E&M: [id number] [facility] [[email or web address] Hosp L3
--- NOTE | 2018-01-19 08:08 | PN_ITS ---
Patient Problems: Active and Suspected Problems (Last Reviewed 12/20/17 @ 18:26 by LUIZ Carvajal) Fall (Acute) Heart failure (Suspected) Subjective: Patient did well overnight. No acute issues were reported. Patient has remained on 2 L nasal cannula. No fevers have been reported. Patient with no complaints this morning. - Physical Exam General: Alert, Cooperative, Disoriented, - - Appears stated age. HEENT: Atraumatic, PERRLA, EOMI, Normocephalic, - - No scleral icterus or injection noted. Oral: Moist Mucosa, No Gingival or Mucosal Lesions/ Ulcerations Neck: Supple, No JVD, No Nodes, Trachea Midline Lungs: No rhonchi, No wheeze, No rales, Diminished, - - Symmetric expansion. No dullness to percussion. Thoracentesis site is clean, dry and intact. Cardiovascular: Regular rate, Regular Rhythm, Normal S1, Normal S2, No murmurs, No rub noted, No Gallop Abdomen: Bowel Sounds Present, Soft, Non Tender, Non-Distended Extremities: No clubbing, No cyanosis, No edema, Capillary Refill Less than 3 Seconds Skin: No rashes, No breakdown Musculoskeletal: No Tenderness to Palpation of Joints or Extremities Lymphatic: No Cervical, Supraclavicular, or Inguinal Adenopathy Neurological: Cranial nerves II-XII grossly intact, Neuro grossly intact, Motor Exam 5/5 strength throughout Psych/Mental Status: Normal Affect, Appropriate Vital Signs Temp Pulse Resp BP Pulse Ox 36.9 C 106 H 16 112/57 L 95 01/19/18 02:00 01/19/18 06:47 01/19/18 06:47 01/19/18 02:00 01/19/18 06:47 Oxygen Flow Rate (L/min) 3 Oxygen Delivery Method Nasal Cannula Weight: 59 kg Body Mass Index (BMI) 20.2 Intake and Output for Last 24 Hours 01/17/18 01/18/18 01/19/18 23:59 23:59 23:59 Intake Total 1000 / 1000 690.5 / 690.5 120 / 120 Output Total 3350 / 3350 775 / 775 500 / 500 Balance -2350 / -2350 -84.5 / -84.5 -380 / -380 Microbiology Past 72 Hours 01/16/18 23:30 Gram Stain - Final Sputum, Expectorated/Coughed Respiratory Culture - Preliminary Appears to be normal respiratory portia. Further studies to follow. 01/16/18 23:30 Legionella Antigen - Final Urine, Clean Catch 01/16/18 23:30 Streptococcus pneumoniae Antigen (M - Final Urine, Clean Catch Laboratory Tests Past 24 Hrs 01/17/18 01/17/18 01/17/18 16:15 16:15 16:15 WBC RBC Hgb Hct MCV MCH MCHC RDW RDW Differential Plt Count MPV Immature Gran % (Auto) Neut % (Auto) Lymph % (Auto) [place] % (Auto) Eos % (Auto) Baso % (Auto) Absolute Neuts (auto) Absolute Lymphs (auto) Total Counted Sodium Potassium Chloride Carbon Dioxide Anion Gap BUN Creatinine Estim Creat Clear Calc Est GFR (MDRD) Af Amer Est GFR (MDRD) Non-Af BUN/Creatinine Ratio Glucose Calcium Fluid Source THORACENTESIS Fluid Color YELLOW Fluid Appearance TURBID Fluid WBC 10.432 Fluid RBC 1.01283 Fluid Tot Cell Count 10.502 Fld Polynuclear WBCs # 8.289 Fld Polynuclear WBCs % 79.3 Fluid Mononuclear WBCs 2.166 Fld Mononuclear WBCs % 20.7 Fluid Neutrophils 74 Fluid Lymphocytes 13 Fluid Monocytes 13 Fl Pathologist Comment May follow Fluid Glucose 11 L* Fluid Total Protein 2.0 Fluid LDH 1248 Fluid Comment 2 SEE COMMENT Synovial Glucose Miscellaneous Cytology Miscellaneous Test 01/17/18 01/17/18 01/17/18 16:15 Unknown Unknown WBC RBC Hgb Hct MCV MCH MCHC RDW RDW Differential Plt Count MPV Immature Gran % (Auto) Neut % (Auto) Lymph % (Auto) [place] % (Auto) Eos % (Auto) Baso % (Auto) Absolute Neuts (auto) Absolute Lymphs (auto) Total Counted Sodium Potassium Chloride Carbon Dioxide Anion Gap BUN Creatinine Estim Creat Clear Calc Est GFR (MDRD) Af Amer Est GFR (MDRD) Non-Af BUN/Creatinine Ratio Glucose Calcium Fluid Source Fluid Color Fluid Appearance Fluid WBC Fluid RBC Fluid Tot Cell Count Fld Polynuclear WBCs # Fld Polynuclear WBCs % Fluid Mononuclear WBCs Fld Mononuclear WBCs % Fluid Neutrophils Fluid Lymphocytes Fluid Monocytes Fl Pathologist Comment Fluid Glucose Fluid Total Protein Fluid LDH Fluid Comment 2 Synovial Glucose Cancelled Miscellaneous Cytology Pending Miscellaneous Test Cancelled 01/19/18 01/19/18 06:56 06:56 WBC 7.9 RBC 3.47 L Hgb 8.7 L Hct 28.4 L MCV 81.8 MCH 25.1 L MCHC 30.6 L RDW 16.4 H RDW Differential 47.2 H Plt Count 387 MPV 8.9 Immature Gran % (Auto) 0.500 Neut % (Auto) 77.4 H Lymph % (Auto) 10.7 L [place] % (Auto) 9.0 Eos % (Auto) 2.1 Baso % (Auto) 0.3 Absolute Neuts (auto) 6.1 Absolute Lymphs (auto) 0.85 Total Counted Not Reportable Sodium 141 Potassium 3.4 L Chloride 100 Carbon Dioxide 28.0 Anion Gap 13 BUN 23 H Creatinine 1.16 Estim Creat Clear Calc 45.92 Est GFR (MDRD) Af Amer 79 Est GFR (MDRD) Non-Af 65 BUN/Creatinine Ratio 19.8 Glucose 94 Calcium 8.8 Fluid Source Fluid Color Fluid Appearance Fluid WBC Fluid RBC Fluid Tot Cell Count Fld Polynuclear WBCs # Fld Polynuclear WBCs % Fluid Mononuclear WBCs Fld Mononuclear WBCs % Fluid Neutrophils Fluid Lymphocytes Fluid Monocytes Fl Pathologist Comment Fluid Glucose Fluid Total Protein Fluid LDH Fluid Comment 2 Synovial Glucose Miscellaneous Cytology Miscellaneous Test Clinical Impression(s) from Imaging Studies Chest X-Ray 01/18/18 12:47 IMPRESSION: Low volume inspiration with bibasilar atelectasis, left greater than right. Increased density of right lower lobe opacity. Slight increase in size of left pleural effusion. Electronically Signed: Chaz Ellis MD at 17:55 EDT , Service support , Medical Necessity - Tobacco Use Smoking Status: Former smoker Tobacco Use: Non-smoker Assessment/Plan All Active Problems (Last Reviewed 12/20/17 @ 18:26 by Pam Vail NP-C) Fall (Acute) History of prostate cancer (Acute) CAP (community acquired pneumonia) (Resolved) Pleural effusion (Acute) RECOMMENDATIONS: 1. Increase activity as tolerated 2. Wean oxygen as tolerated 3. Consider rheumatologic workup 4. Walking oximetry prior to discharge 5. Repeat chest x-ray in 2-4 weeks IMPRESSIONS: 1. Acute hypoxic respiratory insufficiency secondary to pleural effusion/ COPD Patient does not appear to be in a COPD exacerbation on my assessment. Patient did have a thoracentesis without complication. Labs are consistent with an exudative effusion with low glucose. Unfortunately, pH is not available for review. Differential diagnosis for a neutrophilic exudate would include empyema versus rheumatoid arthritis. However, patient has not had any fever or leukocytosis throughout the hospitalization. Anti-CCP and rheumatoid factor may be helpful as an outpatient. 2. Reported COPD Unknown severity at this time. Patient is on bronchodilator therapy at home per his report. Patient is not reporting any significant productive cough or change in sputum to indicate a COPD exacerbation. Likely reasonable to continue with bronchodilators. Agree with holding steroid therapy for now. Patient can resume baseline inhaler medications on discharge 3. Possible congestive heart failure Patient does report occasional lower extremity swelling. Patient does have a left pleural effusion. Exudate is noted on thoracentesis. Patient has received care at [facility] previously. Would likely benefit from obtaining old records for comparison. Renal function improving after cessation of diuretic therapy. 4. Prostate cancer/advanced age/iron deficiency/hypertension Complicates care, management, recovery and prognosis. Likely okay to continue with iron supplementation. Monitor for urinary retention. Code Visit Inpatient E&M: 88854 [facility] Hosp L3
[2018-01-19] MEDS: Senna/Docusate Sodium 1 Tablet PO ×2 (08:43→21:44)
[2018-01-19] MEDS: guaiFENesin 1,200 MG Tablet 1200 MG PO ×2 (08:43→21:44)
[2018-01-19] MEDS: Metoprolol Tartrate 50 MG Tablet PO (08:43)
[2018-01-19] MEDS: Pantoprazole Sodium 40 MG Tablet PO (08:43)
[2018-01-19] MEDS: Magnesium Hydroxide 30 ML UDC PO (08:43)
[2018-01-19] MEDS: Ferrous Sulfate 325 MG Tablet PO (08:43)
[2018-01-19] MEDS: amLODIPine 10 MG Tablet PO (08:43)
[2018-01-19] MEDS: Aspirin E.C. 81 MG Tablet PO (08:43)
[2018-01-19] MEDS: Polyethylene Glycol 3350 17 GM PACKET PO (08:43)
--- NOTE | 2018-01-19 08:47 | PN_ITS ---
Patient Problems: Active and Suspected Problems (Last Reviewed 12/20/17 @ 18:26 by LUIZ Carvajal) Fall (Acute) Heart failure (Suspected) Subjective: His respiratory status remains stable on 3 L of oxygen, pulmonary medicine is following, patient's white blood cell count remains normal and his hemoglobin is unchanged from yesterday. Patient has a slightly low potassium today. - Physical Exam General: Alert, Oriented x3, Cooperative, No apparent distress, Well developed HEENT: Atraumatic, PERRLA, EOMI, Normocephalic Oral: Moist Mucosa Neck: Supple, No JVD, No Nuchal Rigidity, Trachea Midline, Thyroid Normal Size and Texture Lungs: Normal air movement, Rhonchi - Scattered expiratory rhonchi are noted bilaterally, these appear to clear somewhat when he coughs deeply Cardiovascular: Regular rate, Regular Rhythm, Normal S1, Normal S2, No murmurs, No Ectopic Activity, PMI Normal, No rub noted, No Gallop Abdomen: Bowel Sounds Present, Soft, Non Tender, Non-Distended, No hernias noted Extremities: No clubbing, No cyanosis, No edema, Capillary Refill Less than 3 Seconds Skin: No rashes, No breakdown Musculoskeletal: No Tenderness to Palpation of Joints or Extremities Neurological: Cranial nerves II-XII grossly intact, Neuro grossly intact, Sensory exam intact to light touch and pain Psych/Mental Status: Normal Affect, Appropriate, Alert and oriented to time, place, person, mood and affect Vital Signs Temp Pulse Resp BP Pulse Ox 98.5 F 106 H 16 112/57 L 95 01/19/18 02:00 01/19/18 06:47 01/19/18 06:47 01/19/18 02:00 01/19/18 06:47 Oxygen Flow Rate (L/min) 3 Oxygen Delivery Method Nasal Cannula Weight: 59 kg Body Mass Index (BMI) 20.2 Intake and Output for Last 24 Hours 01/17/18 01/18/18 01/19/18 23:59 23:59 23:59 Intake Total 1000 / 1000 690.5 / 690.5 120 / 120 Output Total 3350 / 3350 775 / 775 500 / 500 Balance -2350 / -2350 -84.5 / -84.5 -380 / -380 Microbiology Past 72 Hours 01/16/18 23:30 Blood Culture - Preliminary Blood Culture (Wb) - Right Forearm No growth in 48 hours. 01/16/18 23:20 Blood Culture - Preliminary Blood Culture (Wb) - Anticubital Left No growth in 48 hours. 01/16/18 23:30 Gram Stain - Final Sputum, Expectorated/Coughed Respiratory Culture - Preliminary Appears to be normal respiratory portia. Further studies to follow. 01/16/18 23:30 Legionella Antigen - Final Urine, Clean Catch 01/16/18 23:30 Streptococcus pneumoniae Antigen (M - Final Urine, Clean Catch Laboratory Tests Past 24 Hrs 01/17/18 01/17/18 01/17/18 16:15 16:15 16:15 WBC RBC Hgb Hct MCV MCH MCHC RDW RDW Differential Plt Count MPV Immature Gran % (Auto) Neut % (Auto) Lymph % (Auto) [place] % (Auto) Eos % (Auto) Baso % (Auto) Absolute Neuts (auto) Absolute Lymphs (auto) Total Counted Sodium Potassium Chloride Carbon Dioxide Anion Gap BUN Creatinine Estim Creat Clear Calc Est GFR (MDRD) Af Amer Est GFR (MDRD) Non-Af BUN/Creatinine Ratio Glucose Calcium Fluid Source THORACENTESIS Fluid Color YELLOW Fluid Appearance TURBID Fluid WBC 10.432 Fluid RBC 1.81648 Fluid Tot Cell Count 10.502 Fld Polynuclear WBCs # 8.289 Fld Polynuclear WBCs % 79.3 Fluid Mononuclear WBCs 2.166 Fld Mononuclear WBCs % 20.7 Fluid Neutrophils 74 Fluid Lymphocytes 13 Fluid Monocytes 13 Fl Pathologist Comment May follow Fluid Glucose 11 L* Fluid Total Protein 2.0 Fluid LDH 1248 Fluid Comment 2 SEE COMMENT Synovial Glucose Miscellaneous Cytology Miscellaneous Test 01/17/18 01/17/18 01/17/18 16:15 Unknown Unknown WBC RBC Hgb Hct MCV MCH MCHC RDW RDW Differential Plt Count MPV Immature Gran % (Auto) Neut % (Auto) Lymph % (Auto) [place] % (Auto) Eos % (Auto) Baso % (Auto) Absolute Neuts (auto) Absolute Lymphs (auto) Total Counted Sodium Potassium Chloride Carbon Dioxide Anion Gap BUN Creatinine Estim Creat Clear Calc Est GFR (MDRD) Af Amer Est GFR (MDRD) Non-Af BUN/Creatinine Ratio Glucose Calcium Fluid Source Fluid Color Fluid Appearance Fluid WBC Fluid RBC Fluid Tot Cell Count Fld Polynuclear WBCs # Fld Polynuclear WBCs % Fluid Mononuclear WBCs Fld Mononuclear WBCs % Fluid Neutrophils Fluid Lymphocytes Fluid Monocytes Fl Pathologist Comment Fluid Glucose Fluid Total Protein Fluid LDH Fluid Comment 2 Synovial Glucose Cancelled Miscellaneous Cytology Pending Miscellaneous Test Cancelled 01/19/18 01/19/18 06:56 06:56 WBC 7.9 RBC 3.47 L Hgb 8.7 L Hct 28.4 L MCV 81.8 MCH 25.1 L MCHC 30.6 L RDW 16.4 H RDW Differential 47.2 H Plt Count 387 MPV 8.9 Immature Gran % (Auto) 0.500 Neut % (Auto) 77.4 H Lymph % (Auto) 10.7 L [place] % (Auto) 9.0 Eos % (Auto) 2.1 Baso % (Auto) 0.3 Absolute Neuts (auto) 6.1 Absolute Lymphs (auto) 0.85 Total Counted Not Reportable Sodium 141 Potassium 3.4 L Chloride 100 Carbon Dioxide 28.0 Anion Gap 13 BUN 23 H Creatinine 1.16 Estim Creat Clear Calc 45.92 Est GFR (MDRD) Af Amer 79 Est GFR (MDRD) Non-Af 65 BUN/Creatinine Ratio 19.8 Glucose 94 Calcium 8.8 Fluid Source Fluid Color Fluid Appearance Fluid WBC Fluid RBC Fluid Tot Cell Count Fld Polynuclear WBCs # Fld Polynuclear WBCs % Fluid Mononuclear WBCs Fld Mononuclear WBCs % Fluid Neutrophils Fluid Lymphocytes Fluid Monocytes Fl Pathologist Comment Fluid Glucose Fluid Total Protein Fluid LDH Fluid Comment 2 Synovial Glucose Miscellaneous Cytology Miscellaneous Test Medical Necessity - Tobacco Use Smoking Status: Former smoker Tobacco Use: Non-smoker Assessment/Plan All Active Problems (Last Reviewed 12/20/17 @ 18:26 by Pam Vail NP-C) Fall (Acute) History of prostate cancer (Acute) CAP (community acquired pneumonia) (Resolved) Pleural effusion (Acute) #1 hypoxia on a backdrop of chronic hypoxic respiratory failure due to left pleural effusion and an overlay of COPD-patient is now on his baseline O2 requirement, I told the patient about social media executive discussion with his and the fact that she would like him to go short-term into a rehab type facility , patient did not have an objection to this at this time, we will have to get insurance approval #2 chronic obstructive pulmonary disease #3 Pulmonary hypertension #4 hypertension #5 generalized debility secondary to multiple medical problems including severe COPD and pulmonary hypertension-continue PT and OT #6 acute left pleural effusion-patient underwent a thoracentesis during this admission Code Visit Inpatient E&M: [id number] Subs Hosp L2
[2018-01-19] MEDS: Heparin Injection (Vial) 5,000 UNIT/ML VIAL 5000 UNIT SC ×2 (10:31→21:43)
[2018-01-19] MEDS: Zolpidem Tartrate 5 MG Tablet PO (21:35)
[2018-01-19] MEDS: Doxazosin 1 MG Tablet 2 MG PO (21:43)
[2018-01-19] MEDS: QUEtiapine 25 MG Tablet PO (21:44)
[2018-01-19] MEDS: Metoprolol Tartrate 25 MG Tablet 12.5 MG PO (21:51)
[2018-01-20] VITALS (9 sets, daily range): BP systolic 85–107; BP diastolic 43–59; PULSE 71–90; RESP 16–20; TEMP 36.5–36.9; O2SAT 85–95
[2018-01-20] MEDS: Ipratropium 0.5 MG/2.5 ML SOLUTION INHALATION ×2 (06:56→13:08)
--- NOTE | 2018-01-20 08:12 | PCM.PROGNOTE ---
Patient Problems: Active and Suspected Problems (Last Reviewed 12/20/17 @ 18:26 by LUIZ Carvajal) Fall (Acute) Heart failure (Suspected) Subjective: The patient was seen and examined at the bedside this morning. Events from the last 24 hours have been reviewed. The patient is currently afebrile, hemodynamically stable and maintaining appropriate oxygen saturations on 4 L/min. The patient is currently overall net -2.3 L for the admission. He reports no resting shortness of breath or cough this morning. The patient did undergo a thoracentesis this admission of his left pleural space, which was consistent with a neutrophil predominant exudate with an exceedingly high LDH level. Pathology did report multiple bacteria noted on slide. However, pleural fluid cultures were not sent. Fortunately, [facility] still had the patient's pleural fluid available and orders were placed for cultures this morning. Although documented to be yellow and turbid, the pleural fluid is more green and putrid in nature, certainly raising the concern for an infectious etiology. Empiric antibiotics were also started this morning. The patient's repeat plain film chest x-ray this morning did reveal a continued left-sided loculated pleural effusion and right basilar airspace disease. Objective: The patient's most recent lab work, culture data and imaging studies have all been personally reviewed. Pleural fluid analysis dated January 17 revealed a neutrophil predominant exudative pleural effusion with low glucose and significantly elevated LDH to 1248. Pathology commented there was a large amount of bacteria noted on the slide. It does not appear that bacterial cultures were ever sent. The patient did undergo an ultrasound-guided thoracentesis on January 17, at which time, 536 mL's of fluid was removed. CT chest dated January 17 revealed bibasilar airspace consolidation, moderate left-sided pleural effusion, which appeared to be loculated. The patient was noted to have a small left pleural effusion with septations in December 2017. Surface echocardiogram revealed stage I diastolic dysfunction with preserved ejection fraction. Right ventricular systolic pressure was estimated to be 51 mmHg. - Physical Exam General: Alert, Cooperative, Confused HEENT: Atraumatic, PERRLA, Normocephalic Oral: No Gingival or Mucosal Lesions/ Ulcerations Neck: Supple, No Nodes, Trachea Midline Lungs: No rhonchi, No wheeze, No rales, Diminished, - - Dullness to percussion in the left lung base Cardiovascular: Regular rate, Regular Rhythm, Normal S1, Normal S2, No murmurs Abdomen: Bowel Sounds Present, Soft, Non Tender Extremities: No clubbing, No cyanosis, No edema Skin: No breakdown Musculoskeletal: No Tenderness to Palpation of Joints or Extremities Lymphatic: No Cervical, Supraclavicular, or Inguinal Adenopathy Neurological: Neuro grossly intact Psych/Mental Status: Restless Vital Signs Temp Pulse Resp BP Pulse Ox 97.9 F 90 16 107/53 L 90 01/20/18 04:29 01/20/18 06:56 01/20/18 06:56 01/20/18 04:29 01/20/18 07:35 Oxygen Flow Rate (L/min) 8 Oxygen Delivery Method Venturi Mask Weight: 131 lb 13.383 oz Body Mass Index (BMI) 20.2 Intake and Output for Last 24 Hours 01/18/18 01/19/18 01/20/18 23:59 23:59 23:59 Intake Total 690.5 / 690.5 910 / 910 100 / 100 Output Total 775 / 775 675 / 675 200 / 200 Balance -84.5 / -84.5 235 / 235 -100 / -100 Microbiology Past 72 Hours 01/16/18 23:30 Gram Stain - Final Sputum, Expectorated/Coughed Respiratory Culture - Final Presumptive C albicans 01/16/18 23:30 Blood Culture - Preliminary Blood Culture (Wb) - Right Forearm No growth in 48 hours. 01/16/18 23:20 Blood Culture - Preliminary Blood Culture (Wb) - Anticubital Left No growth in 48 hours. Labs (Last 48 Hours) 01/17/18 01/17/18 01/17/18 16:15 16:15 16:15 WBC RBC Hgb Hct MCV MCH MCHC RDW RDW Differential Plt Count MPV Immature Gran % (Auto) Neut % (Auto) Lymph % (Auto) [place] % (Auto) Eos % (Auto) Baso % (Auto) Absolute Neuts (auto) Absolute Lymphs (auto) Total Counted Sodium Potassium Chloride Carbon Dioxide Anion Gap BUN Creatinine Estim Creat Clear Calc Est GFR (MDRD) Af Amer Est GFR (MDRD) Non-Af BUN/Creatinine Ratio Glucose Calcium Fluid Source THORACENTESIS Fluid Color YELLOW Fluid Appearance TURBID Fluid WBC 10.432 Fluid RBC 1.67685 Fluid Tot Cell Count 10.502 Fld Polynuclear WBCs # 8.289 Fld Polynuclear WBCs % 79.3 Fluid Mononuclear WBCs 2.166 Fld Mononuclear WBCs % 20.7 Fluid Neutrophils 74 Fluid Lymphocytes 13 Fluid Monocytes 13 Fl Pathologist Comment May follow Fluid Glucose 11 L* Fluid Total Protein 2.0 Fluid LDH 1248 Fluid Comment 2 SEE COMMENT Synovial Glucose Miscellaneous Cytology Miscellaneous Test 01/17/18 01/17/18 01/17/18 16:15 Unknown Unknown WBC RBC Hgb Hct MCV MCH MCHC RDW RDW Differential Plt Count MPV Immature Gran % (Auto) Neut % (Auto) Lymph % (Auto) [place] % (Auto) Eos % (Auto) Baso % (Auto) Absolute Neuts (auto) Absolute Lymphs (auto) Total Counted Sodium Potassium Chloride Carbon Dioxide Anion Gap BUN Creatinine Estim Creat Clear Calc Est GFR (MDRD) Af Amer Est GFR (MDRD) Non-Af BUN/Creatinine Ratio Glucose Calcium Fluid Source Fluid Color Fluid Appearance Fluid WBC Fluid RBC Fluid Tot Cell Count Fld Polynuclear WBCs # Fld Polynuclear WBCs % Fluid Mononuclear WBCs Fld Mononuclear WBCs % Fluid Neutrophils Fluid Lymphocytes Fluid Monocytes Fl Pathologist Comment Fluid Glucose Fluid Total Protein Fluid LDH Fluid Comment 2 Synovial Glucose Cancelled Miscellaneous Cytology Pending Miscellaneous Test Cancelled 01/19/18 01/19/18 06:56 06:56 WBC 7.9 RBC 3.47 L Hgb 8.7 L Hct 28.4 L MCV 81.8 MCH 25.1 L MCHC 30.6 L RDW 16.4 H RDW Differential 47.2 H Plt Count 387 MPV 8.9 Immature Gran % (Auto) 0.500 Neut % (Auto) 77.4 H Lymph % (Auto) 10.7 L [place] % (Auto) 9.0 Eos % (Auto) 2.1 Baso % (Auto) 0.3 Absolute Neuts (auto) 6.1 Absolute Lymphs (auto) 0.85 Total Counted Not Reportable Sodium 141 Potassium 3.4 L Chloride 100 Carbon Dioxide 28.0 Anion Gap 13 BUN 23 H Creatinine 1.16 Estim Creat Clear Calc 45.92 Est GFR (MDRD) Af Amer 79 Est GFR (MDRD) Non-Af 65 BUN/Creatinine Ratio 19.8 Glucose 94 Calcium 8.8 Fluid Source Fluid Color Fluid Appearance Fluid WBC Fluid RBC Fluid Tot Cell Count Fld Polynuclear WBCs # Fld Polynuclear WBCs % Fluid Mononuclear WBCs Fld Mononuclear WBCs % Fluid Neutrophils Fluid Lymphocytes Fluid Monocytes Fl Pathologist Comment Fluid Glucose Fluid Total Protein Fluid LDH Fluid Comment 2 Synovial Glucose Miscellaneous Cytology Miscellaneous Test Microbiology 01/16/18 23:30 Sputum, Expectorated/Coughed Gram Stain - Final 01/16/18 23:30 Sputum, Expectorated/Coughed Respiratory Culture - Final Presumptive C albicans 01/16/18 23:30 Blood Culture (Wb) - Right Forearm Blood Culture - Preliminary No growth in 48 hours. 01/16/18 23:20 Blood Culture (Wb) - Anticubital Left Blood Culture - Preliminary No growth in 48 hours. Clinical Impression(s) from Imaging Studies Chest X-Ray 01/17/18 00:00 IMPRESSION: Cardiomegaly with a left-sided pleural effusion and elevated left hemidiaphragm. Areas of consolidation in the right lower lobe Electronically Signed: Saeed Lainezteh, at 3:53 EDT Tel , Service support , Chest X-Ray 01/17/18 00:00 IMPRESSION: Bilateral small pleural effusions. Elevated left hemidiaphragm. A of consolidation in the right lung base. Electronically Signed: Saeed Lainezteh, at 3:57 EDT Tel , Service support , Chest X-Ray 01/17/18 00:00 IMPRESSION: Cardiomegaly with a left sided effusion. Areas of consolidation in the right lower lobe. Electronically Signed: Saeed NavaMark, at 3:50 EDT Tel , Service support , Thoracentesis Ultrasound 01/17/18 02:55 IMPRESSION: Successful ultrasound-guided left thoracentesis. Electronically Signed: Aiden Larry, at 17:03 EDT Tel , Service support , Chest CT 01/17/18 10:30 IMPRESSION: Bilateral lower lung consolidation and pleural effusions. There is a large loculated fluid component on the left. Pericardial effusion. Electronically Signed: Genaro Barton MD at 11:45 EDT , Service support , Chest X-Ray 01/17/18 16:13 IMPRESSION: No large gross pneumothorax status post thoracentesis identified. Decreased left pleural effusion/empyema and atelectasis/scarring. No change right lung base heterogeneous opacity, may represent atelectasis, pleural fluid, pneumonia, mass or combination. Electronically Signed: Aiden Larry at 16:58 EDT Tel , Service support , Chest X-Ray 01/18/18 12:47 IMPRESSION: Low volume inspiration with bibasilar atelectasis, left greater than right. Increased density of right lower lobe opacity. Slight increase in size of left pleural effusion. Electronically Signed: Chaz Ellis MD at 17:55 EDT , Service support , Medical Necessity - Tobacco Use Smoking Status: Former smoker Tobacco Use: Non-smoker Assessment/Plan All Active Problems (Last Reviewed 12/20/17 @ 18:26 by Pam Vail NP-C) Fall (Acute) History of prostate cancer (Acute) CAP (community acquired pneumonia) (Resolved) Pleural effusion (Acute) RECOMMENDATIONS: 1. It is unclear why pleural fluid cultures were not sent, as the patient's complicated pleural space may have been precipitated by an infectious etiology. 2. Check rheumatoid factor and anti-CCP antibodies 3. Continue bronchodilators and wean supplemental oxygen as tolerated. 4. Discontinue Ambien, as I do not feel that there is a clinical indication for its use in this elderly male. 5. Obtain repeat plain film chest x-ray. 6. If repeat plain film chest x-ray reveals worsening pleural fluid collection, would need to consider tube thoracotomy and subsequent transfer to a tertiary care facility. IMPRESSIONS: 1. Acute on chronic hypoxemic respiratory failure secondary to exudative pleural effusion and superimposed COPD The patient underwent a thoracentesis which did reveal a neutrophil predominant exudative pleural effusion with low glucose and significantly elevated LDH, raising the concern for a complicated parapneumonic effusion versus empyema versus rheumatoid associated pleural effusion. It does not appear that cultures were ever sent on the pleural fluid. I am going to obtain a repeat plain film chest x-ray this morning. If it demonstrates worsening findings, including enlarging pleural effusion, would recommend consideration for transfer to a tertiary care facility for evaluation of tube thoracotomy, given the complicated nature of the patient's pleural space. We will also check with micro and if the pleural fluid is still available, cultures will be ordered. Empiric antibiotic should be started. Typically, when there is clinical concern for a complicated parapneumonic effusion and/or empyema, pleural fluid drainage via tube thoracotomy is indicated. This would require transfer to a tertiary care facility. 2. Heart failure with preserved ejection fraction/pulmonary hypertension Continue current medical management. 3. Hypokalemia Electrolyte repletion as ordered. Recheck levels in the morning. 4. History of prostate cancer/advanced age/hypertension Complicates care, management, recovery and prognosis. Continue current antihypertensive regimen. Given the patient's advanced age, strongly recommend discontinuation of Ambien. This note was generated with [employer] dictation software. It may contain incorrect words, spelling, and punctuation that were not noted in checking the note before signing. Code Visit Inpatient E&M: 86163 [facility] L[facility]
[2018-01-20 09:01] LABS: Rheumatoid Factor < 10.0 IU/mL (<15)
[2018-01-20] MEDS: Aspirin E.C. 81 MG Tablet PO (09:10)
[2018-01-20] MEDS: Ferrous Sulfate 325 MG Tablet PO (09:10)
[2018-01-20] MEDS: Pantoprazole Sodium 40 MG Tablet PO (09:10)
[2018-01-20] MEDS: Acetaminophen 325 MG Tablet 650 MG PO (09:14)
--- NOTE | 2018-01-20 09:45 | CASEMGMT ---
Social Work Note SW received call from pt's Deborah. Deborah states that she would like a referral sent to [facility]. WILMER informed Deborah that this worker will make referral and will check on bed availability and will update [place] and pt once updates are available. Deborah states understanding. WILMER placed a call to [facility] inpatient talent solutions manager and spoke with David. David states that he has already received a call from pt's as well in regards to referral. David provided fax number [phone]. WILMER faxed referral to David at [facility]. Plan: [facility] pending acceptance and pre-cert America Russ DIRECTOR OF PROGRAM MANAGEMENT, MILITARY SCIENCE INSTRUCTOR
--- NOTE | 2018-01-20 10:24 | CASEMGMT ---
Tertiary hospitals in-network with patient's insurance: [place], [facility], [facility], [facility], [facility], [facility], and [facility].
[2018-01-20] MEDS: Metoprolol Tartrate 50 MG Tablet PO (10:51)
[2018-01-20] MEDS: Heparin Injection (Vial) 5,000 UNIT/ML VIAL 5000 UNIT SC (10:52)
[2018-01-20] MEDS: Senna/Docusate Sodium 1 Tablet PO (10:52)
[2018-01-20] MEDS: amLODIPine 10 MG Tablet PO (10:52)
[2018-01-20] MEDS: Polyethylene Glycol 3350 17 GM PACKET PO (10:52)
[2018-01-20] MEDS: guaiFENesin 1,200 MG Tablet 1200 MG PO (10:52)
--- NOTE | 2018-01-20 12:07 | CASEMGMT ---
Social Work Note Pt is being transferred to [facility]. SW placed a call to David with inpatient services at [facility] and left him a message to update him that pt is being transferred to [facility] and referral to be cancelled for pt. America Russ STITCH SEPARATOR, THEATER TECHNICIAN
--- NOTE | 2018-01-20 12:12 | PCM.PN.HOSP ---
Patient Problems: Active and Suspected Problems (Last Reviewed 12/20/17 @ 18:26 by LUIZ Carvajal) Fall (Acute) Heart failure (Suspected) Objective: GENERAL: Frail looking HEENT: Clear conjunctiva, NECK; supple, normal thyroid, CHEST: Diminished to auscultation bilaterally, HEART: Regular S1 S2, no audible murmurs ABDOMEN: soft, non-tender, normoactive bowel sounds, RECTAL: deferred EXTREMITIES: No edema, no cyanosis. FABRICATION MACHINE OPERATOR: Awake; no lateralizing signs. SKIN: No Rash Vitals/I&O's: Vital Signs Temp Pulse Resp BP Pulse Ox 97.7 F L 86 20 H 105/54 L 92 01/20/18 10:58 01/20/18 10:58 01/20/18 10:58 01/20/18 10:58 01/20/18 10:58 Oxygen Flow Rate (L/min) 3 Oxygen Delivery Method Nasal Cannula Weight: 59.8 kg Body Mass Index (BMI) 20.2 Intake and Output for Last 24 Hours 01/18/18 01/19/18 01/20/18 23:59 23:59 23:59 Intake Total 690.5 / 690.5 910 / 910 100 / 100 Output Total 775 / 775 675 / 675 200 / 200 Balance -84.5 / -84.5 235 / 235 -100 / -100 Microbiology Past 72 Hours 01/16/18 23:30 Sputum, Expectorated/Coughed Gram Stain - Final 01/16/18 23:30 Sputum, Expectorated/Coughed Respiratory Culture - Final Presumptive C albicans 01/16/18 23:30 Blood Culture (Wb) - Right Forearm Blood Culture - Preliminary No growth in 48 hours. 01/16/18 23:20 Blood Culture (Wb) - Anticubital Left Blood Culture - Preliminary No growth in 48 hours. Laboratory Results 01/20/18 06:56: Rheumatoid Factor < 10.0 01/20/18 06:56: Cycl Citrul Peptide IgG Pending 01/20/18 10:37: MRSA (PCR) Pending Current Medications Acetaminophen (Tylenol) 650 mg PO Q4H PRN PRN PRN Reason: FEVER Last Admin: 01/20/18 09:14 Dose: 650 mg Amlodipine Besylate (Norvasc) 10 mg PO DAILY JOSHUA Last Admin: 01/20/18 10:52 Dose: 10 mg Aspirin (Ecotrin) 81 mg PO DAILY@0800 [facility] Last Admin: 01/20/18 09:10 Dose: 81 mg Bisacodyl (Dulcolax) 5 mg PO DAILY PRN PRN PRN Reason: Constipation Bisacodyl (Dulcolax) 5 mg PO DAILY PRN PRN Reason: Constipation Doxazosin Mesylate (Cardura) 2 mg PO QHS [facility] Last Admin: 01/19/18 21:43 Dose: 2 mg Ferrous Sulfate (Ferrous Sulfate) 325 mg PO DAILY@0800 [facility] Last Admin: 01/20/18 09:10 Dose: 325 mg Guaifenesin (Mucinex) 1,200 mg PO BID [facility] Last Admin: 01/20/18 10:52 Dose: 1,200 mg Heparin Sodium (Porcine) (Heparin Na) 5,000 unit SC Q12 [facility] Last Admin: 01/20/18 10:52 Dose: 5,000 unit Piperacillin Sod/Tazobactam Sod (Zosyn) 3.375 gm in 50 mls @ 12.5 mls/hr IV Q8 [facility] Ipratropium [place] (Atrovent) 0.5 mg INHALATION Q6HWA.RT [facility] Last Admin: 01/20/18 06:56 Dose: 0.5 mg Magnesium Hydroxide (Milk Of Magnesia) 30 ml PO DAILY PRN PRN PRN Reason: Constipation Last Admin: 01/19/18 08:43 Dose: 30 ml Metoprolol Tartrate (Lopressor (Beta Ilene)) 50 mg PO BID [facility] Last Admin: 01/20/18 10:51 Dose: 50 mg Nutritional Formula (Lactose Free) (Ensure Enlive) 120 ml PO 4X/DAY [facility] Last Admin: 01/19/18 21:43 Dose: 120 ml Ondansetron HCl (Zofran) 4 mg IV Q8H PRN PRN PRN Reason: NAUSEA Oxycodone HCl (Oxyir) 5 mg PO Q4H PRN PRN PRN Reason: Moderate Pain (pain scale 4-5) Pantoprazole Sodium (Protonix) 40 mg PO BREAKFAST [facility] Last Admin: 01/20/18 09:10 Dose: 40 mg Polyethylene Glycol (Miralax) 17 gm PO DAILY [facility] Last Admin: 01/20/18 10:52 Dose: 17 gm Quetiapine Fumarate (Seroquel) 25 mg PO QHS JOSHUA Last Admin: 01/19/18 21:44 Dose: 25 mg Senna/Docusate Sodium (Senokot-S, Meeta-Colace) 1 tablet PO BID JOSHUA Last Admin: 01/20/18 10:52 Dose: 1 tablet Sodium Chloride () 5 - 30 ml IV UD PRN PRN Reason: SALINE FLUSH Last Admin: 01/18/18 08:59 Dose: 10 ml Zolpidem Tartrate (Ambien (Generic)) 5 mg PO QHS PRN PRN PRN Reason: SLEEP Last Admin: 01/19/18 21:35 Dose: 5 mg Medical Necessity - Tobacco Use Smoking Status: Former smoker Tobacco Use: Non-smoker Assessment/Plan All Active Problems (Last Reviewed 12/20/17 @ 18:26 by Pam Vail NP-C) Fall (Acute) History of prostate cancer (Acute) CAP (community acquired pneumonia) (Resolved) Pleural effusion (Acute) Patient is a 77-year-old gentleman with history of chronic hypoxic respiratory failure secondary to COPD transferred from [facility] with progressive shortness of breath. Imaging studies obtained on admission demonstrated large loculated left-sided pleural effusion for which patient underwent thoracocentesis on 01/17/2018. Findings included large amount of bacteria on Gram stain and neutrophil dominated exudates with markedly elevated LDH at 1248 1. Acute hypoxic respiratory failure secondary to combination of large loculated exudative pleural effusion (empyema and patient COPD exacerbation. Case was discussed with Dr. Grubbs with pulmonary medicine plan is for patient to be transferred to a tertiary care center for evaluation by cardiothoracic surgery 2. Acute empyema as stated above patient thoracocentesis obtained on 01/17/2018 demonstrated large amount of bacteria on Gram stain and neutrophil dominated exudates with markedly elevated LDH at 1248 empirically on Zosyn with plans for patient to be transferred to a tertiary care center [facility] once bed becomes available 3. COPD with acute exacerbation management protocol 4. Chronic hypoxic respiratory failure patient is a baseline home O2 5. Pulmonary hypertension 6. Hypertension-blood pressure controlled, home medications continued with dose adjustment as needed 10. DVT prophylaxis on SC heparin Active Medications Acetaminophen (Tylenol) 650 mg PO Q4H PRN PRN PRN Reason: FEVER Last Admin: 01/20/18 09:14 Dose: 650 mg Amlodipine Besylate (Norvasc) 10 mg PO DAILY [facility] Last Admin: 01/20/18 10:52 Dose: 10 mg Aspirin (Ecotrin) 81 mg PO DAILY@0800 [facility] Last Admin: 01/20/18 09:10 Dose: 81 mg Bisacodyl (Dulcolax) 5 mg PO DAILY PRN PRN PRN Reason: Constipation Bisacodyl (Dulcolax) 5 mg PO DAILY PRN PRN Reason: Constipation Doxazosin Mesylate (Cardura) 2 mg PO QHS [facility] Last Admin: 01/19/18 21:43 Dose: 2 mg Ferrous Sulfate (Ferrous Sulfate) 325 mg PO DAILY@0800 [facility] Last Admin: 01/20/18 09:10 Dose: 325 mg Guaifenesin (Mucinex) 1,200 mg PO BID [facility] Last Admin: 01/20/18 10:52 Dose: 1,200 mg Heparin Sodium (Porcine) (Heparin Na) 5,000 unit SC Q12 [facility] Last Admin: 01/20/18 10:52 Dose: 5,000 unit Piperacillin Sod/Tazobactam Sod (Zosyn) 3.375 gm in 50 mls @ 12.5 mls/hr IV Q8 [facility] Ipratropium [place] (Atrovent) 0.5 mg INHALATION Q6HWA.RT [facility] Last Admin: 01/20/18 06:56 Dose: 0.5 mg Magnesium Hydroxide (Milk Of Magnesia) 30 ml PO DAILY PRN PRN PRN Reason: Constipation Last Admin: 01/19/18 08:43 Dose: 30 ml Metoprolol Tartrate (Lopressor (Beta Ilene)) 50 mg PO BID [facility] Last Admin: 01/20/18 10:51 Dose: 50 mg Nutritional Formula (Lactose Free) (Ensure Enlive) 120 ml PO 4X/DAY [facility] Last Admin: 01/19/18 21:43 Dose: 120 ml Ondansetron HCl (Zofran) 4 mg IV Q8H PRN PRN PRN Reason: NAUSEA Oxycodone HCl (Oxyir) 5 mg PO Q4H PRN PRN PRN Reason: Moderate Pain (pain scale 4-5) Pantoprazole Sodium (Protonix) 40 mg PO BREAKFAST [facility] Last Admin: 01/20/18 09:10 Dose: 40 mg Polyethylene Glycol (Miralax) 17 gm PO DAILY [facility] Last Admin: 01/20/18 10:52 Dose: 17 gm Quetiapine Fumarate (Seroquel) 25 mg PO QHS JOSHUA Last Admin: 01/19/18 21:44 Dose: 25 mg Senna/Docusate Sodium (Senokot-S, Meeta-Colace) 1 tablet PO BID JOSHUA Last Admin: 01/20/18 10:52 Dose: 1 tablet Sodium Chloride () 5 - 30 ml IV UD PRN PRN Reason: SALINE FLUSH Last Admin: 01/18/18 08:59 Dose: 10 ml Zolpidem Tartrate (Ambien (Generic)) 5 mg PO QHS PRN PRN PRN Reason: SLEEP Last Admin: 01/19/18 21:35 Dose: 5 mg Clinical Impression(s) from Imaging Studies Chest X-Ray 01/17/18 00:00 IMPRESSION: Cardiomegaly with a left-sided pleural effusion and elevated left hemidiaphragm. Areas of consolidation in the right lower lobe Electronically Signed: Saeed East, at 3:53 EDT Tel , Service support , Chest X-Ray 01/17/18 00:00 IMPRESSION: Bilateral small pleural effusions. Elevated left hemidiaphragm. A of consolidation in the right lung base. Electronically Signed: Saeed East, at 3:57 EDT Tel , Service support , Chest X-Ray 01/17/18 00:00 IMPRESSION: Cardiomegaly with a left sided effusion. Areas of consolidation in the right lower lobe. Electronically Signed: Saeed East, at 3:50 EDT Tel , Service support , Thoracentesis Ultrasound 01/17/18 02:55 IMPRESSION: Successful ultrasound-guided left thoracentesis. Electronically Signed: Aiden Larry, at 17:03 EDT Tel , Service support , Chest CT 01/17/18 10:30 IMPRESSION: Bilateral lower lung consolidation and pleural effusions. There is a large loculated fluid component on the left. Pericardial effusion. Electronically Signed: Genaro Barton MD at 11:45 EDT , Service support , Chest X-Ray 01/17/18 16:13 IMPRESSION: No large gross pneumothorax status post thoracentesis identified. Decreased left pleural effusion/empyema and atelectasis/scarring. No change right lung base heterogeneous opacity, may represent atelectasis, pleural fluid, pneumonia, mass or combination. Electronically Signed: Aiden Larry, at 16:58 EDT Tel , Service support , Chest X-Ray 01/18/18 12:47 IMPRESSION: Low volume inspiration with bibasilar atelectasis, left greater than right. Increased density of right lower lobe opacity. Slight increase in size of left pleural effusion. Electronically Signed: Chaz Ellis MD at 17:55 EDT , Service support , Chest X-Ray 01/20/18 08:40 IMPRESSION: Stable chest. Persistent pneumonia. Persistent loculated left lung base pleural effusion. Electronically Signed: Jung Campuzano, at 9:08 EDT Tel , Service support , Code Visit Inpatient E&M: [address] [facility] L3
--- NOTE | 2018-01-20 13:32 | PCM.DC.SUM ---
Discharge Date and Diagnosis - Problem List Patient Problems: Active and Suspected Problems (Last Reviewed 12/20/17 @ 18:26 by LUIZ Carvajal) Fall (Acute) Heart failure (Suspected) Date of Admission: 01/16/18 Date of Discharge: 01/20/18 - Primary Discharge Diagnosis Active and Suspected Problems (Last Reviewed 12/20/17 @ 18:26 by LUIZ Carvjaal) Fall (Acute) Heart failure (Suspected) - Secondary Discharge Diagnosis Chronic Problems (Last Reviewed 12/20/17 @ 18:26 by LUIZ Carvajal) COPD (chronic obstructive pulmonary disease) (Chronic) Hospital Course and Treatment Imaging Results: Impressions Thoracentesis Ultrasound 01/17/18 02:55 IMPRESSION: Successful ultrasound-guided left thoracentesis. Electronically Signed: Aiden Larry, at 17:03 EDT Tel , Service support , Chest CT 01/17/18 10:30 IMPRESSION: Bilateral lower lung consolidation and pleural effusions. There is a large loculated fluid component on the left. Pericardial effusion. Electronically Signed: Genaro Barton MD at 11:45 EDT , Service support , Chest X-Ray 01/20/18 08:40 IMPRESSION: Stable chest. Persistent pneumonia. Persistent loculated left lung base pleural effusion. Electronically Signed: Jung Capmuzano, at 9:08 EDT Tel , Service support , 01/20/18 08:40 CXR [Chest 1 View (Portable)] [RAD] Urgent 01/16/18 23:30 Sputum, Expectorated/Coughed Gram Stain - Final 01/16/18 23:30 Sputum, Expectorated/Coughed Respiratory Culture - Final Presumptive C albicans 01/16/18 23:30 Blood Culture (Wb) - Right Forearm Blood Culture - Preliminary No growth in 48 hours. 01/16/18 23:20 Blood Culture (Wb) - Anticubital Left Blood Culture - Preliminary No growth in 48 hours. 01/16/18 23:30 Urine, Clean Catch Legionella Antigen - Final 01/16/18 23:30 Urine, Clean Catch Streptococcus pneumoniae Antigen (M - Final Laboratory Results 01/20/18 Range/Units 06:56 Rheumatoid Factor < 10.0 (<15) IU/mL Consultations 01/16/18 22:38 Consult: Onc/Wound/needle setter Routine Comment: Operations: None Summary of Care Provided: Patient is a 77-year-old gentleman with history of chronic hypoxic respiratory failure secondary to COPD transferred from [facility] with progressive shortness of breath. Imaging studies obtained on admission demonstrated large loculated left-sided pleural effusion for which patient underwent thoracocentesis on 01/17/2018. Findings included large amount of bacteria on Gram stain and neutrophil dominated exudates with markedly elevated LDH at 1248 1. Acute hypoxic respiratory failure secondary to combination of large loculated exudative pleural effusion (empyema and patient COPD exacerbation. Case was discussed with Dr. Grubbs with pulmonary medicine who recommended for the patient to be transferred to a tertiary care center for evaluation by cardiothoracic surgery I did place a call and patient was accepted for transfer to [facility] 2. Acute empyema as stated above patient thoracocentesis obtained on 01/17/2018 demonstrated large amount of bacteria on Gram stain and neutrophil dominated exudates with markedly elevated LDH at 1248 empirically on Zosyn with plans for patient to be transferred to a tertiary care center [facility] once bed becomes available 3. COPD with acute exacerbation management protocol 4. Chronic hypoxic respiratory failure patient is a baseline home O2 5. Pulmonary hypertension 6. Hypertension-blood pressure controlled, home medications continued with dose adjustment as needed 7. DVT prophylaxis on SC heparin 8. Severe protein calorie malnutrition as evidenced by decreased energy level, BMI of 18.9 Home Medications: Medications to take at Discharge Albuterol Aerosols [Ventolin Aerosols] 2.5 mg INHALATION Q6H PRN PRN 11/19/17 Amlodipine [Norvasc] 10 mg PO DAILY 11/19/17 Aspirin E.C. [Ecotrin] 81 mg PO DAILY@0811/19/17 Ferrous Sulfate 325 mg PO DAILY@79911/19/17 Metoprolol Tartrate [Lopressor (beta abhi)] 50 mg PO BID 11/19/17 Nebulizer Accessories 11/19/17 Nebulizer and Compressor 11/19/17 Omeprazole [Prilosec] 40 mg PO BREAKFAST 11/19/17 Terazosin HCl [Hytrin] 2 mg PO QHS 11/19/17 Tiotropium [place] [Spiriva 18 MCG] 1 puff INHALATION DAILY 11/19/17 Tiotropium Br/Olodaterol HCl [Stiolto Respimat Inhal [place]] 2 puff INHALATION Q24H 01/16/18 Primary Care Physician: Yeny Bautista NP-C [Primary Care Provider] - Disposition: [facility] Minutes spent on discharge:: 45 Patient Condition:: Fair Medical Necessity - Tobacco Use Smoking Status: Former smoker Tobacco Use: Non-smoker Meaningful Use Info Meaningful Use Diagnoses (Choose all that apply): None applicable Code Visit Inpatient E&M: 45362 [facility]
[2018-01-20 14:17] LABS: M R Staph aureus DNA By PCR Negative (Negative); Probe Check PASS; Specimen Processing Control PASS
[2018-01-20] MEDS: Piperacil/Tazobactam 3.375 GM/50 ML ML IV (14:35)
--- NOTE | 2018-01-20 15:09 | NURSING ---
[facility] transfer center called bed #[id number]. report to be called to [phone]. information given to primary RN
--- NOTE | 2018-01-20 15:23 | NURSING ---
[facility] called for transport, awaRe they should arrive in approx. 45minutes
[2018-01-20 15:41] LABS: Lymphocytes 30 %; Monocytes 22 %; Neutrophil (Segs) 48 %
--- NOTE | 2018-01-20 15:59 | NURSING ---
[facility] crew on unit, discussing pt made aware is a BLS crew, [facility] transport okayed with Dr. Metcalf, however, vital signs obtained by primary RN and aware now will need transport with iVF, aware the [facility] crew contacted their dispatch and a acls crew will be coming instead
[2018-01-20] MEDS: 0.9% Normal Saline 1,000 ML 999 ML IV (16:00)
[2018-01-21 09:08] LABS: Pathologist Comment/Body Fluid Reviewed
[2018-01-22 12:08] LABS: pH, Body Fluid 11254 6.6 (Not Estab.)
[2018-01-23 10:59] LABS: CCP IgG Antibodies 12 units (0-19)
== END 2018-01-20 17:20 | disposition short-term general hospital (02) | DRG 177 ==
LOC: MS2 01-18 07:48 → MS3 01-18 13:57
PROVIDERS: Hospitalist; Internal Medicine Critical Care Medicine; Radiology Diagnostic Radiology; Student in an Organized Health Care Education/Training Program; Family Provider Nurse Practitioner Adult Health; PCP Nurse Practitioner Adult Health; Visit Provider Internal Medicine
DX: J86.9 Pyothorax without fistula (principal); J96.21 Acute and chronic respiratory failure with hypoxia; E43 Unspecified severe protein-calorie malnutrition; J44.0 Chronic obstructive pulmonary disease with (acute) lower respiratory infection; J44.1 Chronic obstructive pulmonary disease with (acute) exacerbation; Z68.1 Body mass index [BMI] 19.9 or less, adult; I50.32 Chronic diastolic (congestive) heart failure; I27.20 Pulmonary hypertension, unspecified; I11.0 Hypertensive heart disease with heart failure; Z87.891 Personal history of nicotine dependence; Z99.81 Dependence on supplemental oxygen; D50.9 Iron deficiency anemia, unspecified; E87.6 Hypokalemia; N40.0 Benign prostatic hyperplasia without lower urinary tract symptoms; Z91.81 History of falling; L89.150 Pressure ulcer of sacral region, unstageable
CPT/HCPCS: 32555; 36415; 71045; 71046; 71250; 80048; 82306; 82607; 82728; 82945; 83540; 83550; 83615; 83880; 83986; 84156; 84157; 85014; 85018; 85025; 85610; 85730; 86200; 86431; 86850; 86900; 86920; 86922; 87040; 87070; 87075; 87077; 87186; 87205; 87449; 87641; 88108; 88305; 88312; 88313; 89050; 93306; 94640; 94667; 94668; 97110; 97116; 97162; 97166; 97530; 97535; J7030; J7040; P9016; A4216; J1940

== ENCOUNTER → 2018-04-04 10:46 | Outpatient (CLI) | payer MEDICARE, SELFPAY ==
--- NOTE | 2018-04-04 10:53 | RAD_ITS ---
STUDY: X-RAY CHEST REASON FOR EXAM: Male, 77 years old. Pleural effusion COPD TECHNIQUE: PA and lateral views of the chest. COMPARISON: January 17, 2018 chest x-ray FINDINGS: There is persistent of the left hemidiaphragm with underlying distended loops of bowel in the left upper quadrant. There is a pattern of hyperlucency and interstitial prominence within the lungs. This is improved since January 17, 2018. There is a calcified granuloma in the right lower lobe. There is no demonstrated pleural abnormality. There is mild cardiac enlargement. Normal mediastinum and gay. Normal visualized pulmonary arteries. There is atherosclerotic calcification of the aortic arch with tortuosity. There are diffuse degenerative changes of the visualized thoracic spine. Normal visualized ribs, clavicles, and shoulders. There is no demonstrated abnormality of the visualized soft tissue structures of the upper abdomen. RAD/Chest PA and Lateral IMPRESSION: Resolved right lower lobe infiltrate since prior study. Persistent elevation of the left hemidiaphragm distended bowel loops or fluid levels within the left upper quadrant. Recommend correlation with abdominal symptoms. Findings suspicious for underlying chronic lung disease. Electronically Signed: Maria Del Carmen Vo MD at 19:59 EDT Tel , Service support ,
== END ==
PROVIDERS: Family Provider Nurse Practitioner Adult Health; PCP Nurse Practitioner Adult Health; Referring Provider Internal Medicine Critical Care Medicine; Visit Provider Internal Medicine Critical Care Medicine
DX: J44.0 Chronic obstructive pulmonary disease with (acute) lower respiratory infection (principal); Z87.09 Personal history of other diseases of the respiratory system
CPT/HCPCS: 71046